=== PATIENT | female | born 1940 | race Caucasian/White ===

== ENCOUNTER 2018-08-25 20:12 | Inpatient (IN) | payer MEDICARE ==
[~2018-08-25] VITALS: Ht 162.6 cm; Wt 92.7 kg
[~2018-08-25 20:12] MED LIST: Aspirin PO; Atorvastatin Calcium PO; CLPD75T PO; LISI1TAB10 PO; METO-272 PO; SULF-222 PO
[2018-08-25] MEDS ORDERED: RT-ALBUTEROL/IPRATROPIUM 3 ML (DUONEB) VIAL INH ONE (20:30)
[2018-08-25] MEDS ORDERED: cefTRIAXone FOR IV USE 1,000 MG in WATER (STERILE) FOR INJECTION 10 ML IV ONE ×2 (20:30→22:45)
[2018-08-25 20:34] LABS: BASOPHILS % (AUTO) 0 % (0-10); EOSINOPHILS % (AUTO) 0 % (0-10); HEMATOCRIT 39 % (35-52); HEMOGLOBIN 14.2 G/DL (11.5-16.0); LYMPHOCYTES % (AUTO) 29 % (12-44); MEAN CORPUSCULAR HEMOGLOBIN 35 PG (25-34); MEAN CORPUSCULAR HGB CONC 37 G/DL (32-36); MEAN CORPUSCULAR VOLUME 95 FL (80-99); MEAN PLATELET VOLUME 9.3 FL (7.4-10.4); MONOCYTES # (AUTO) 0.8 X 10^3 (0.0-1.0); MONOCYTES % (AUTO) 11 % (0-12); NEUTROPHILS # (AUTO) 4.1 X 10^3 (1.8-7.8); NEUTROPHILS % (AUTO) 59 % (42-75); PLATELET COUNT 174 10^3/uL (130-400); RED CELL DISTRIBUTION WIDTH 14.9 % (10.0-14.5); WHITE BLOOD COUNT 6.9 10^3/uL (4.3-11.0)
[2018-08-25] MEDS ORDERED: RT-IPRATROPIUM (ATROVENT) 0.5MG/2.5ML AMP IH ONE ×2 (20:37→20:45)
[2018-08-25] MEDS ORDERED: RT-ALBUTEROL SULF 2.5 MG/3 ML PRE-MIX VIAL ONE (20:37)
[2018-08-25 20:44] LABS: PROTHROMBIN TIME PATIENT 12.9 SEC (12.2-14.7)
--- NOTE | 2018-08-25 20:45 | Diagnostic Imaging Report ---
INDICATION: Shortness of air COMPARISON: 07/10/2014 FINDINGS: Single frontal view of the chest demonstrates normal heart size and pulmonary vascularity. The lungs are well aerated and clear. No large pleural effusion or pneumothorax is seen. The visualized osseous structures show no acute abnormalities. IMPRESSION: 1. No acute cardiopulmonary process. Dictated by: Dictated on workstation # [id number]
--- NOTE | 2018-08-25 20:50 | NUR ---
ABG DRAWN BY RT NEIDA FROM LT RADIAL.
--- NOTE | 2018-08-25 20:59 | ED Respiratory ---
General Chief Complaint: Respiratory Problems Stated Complaint: SOB Nursing Triage Note: PT SENT FROM [facility] WITH REPORT OF SOB. PT TO ROOM #3 VIA ED W/C BY ED STAFF. UPON ARRIVAL INCREASED WORK OF BREATHING WITH AUDIBLE BREATH SOUNDS NOTED. DAUGHTER @ SIDE REPORTS PT DEVELOPED INTERMITTENT MOIST, PRODUCTIVE COUGH APPROX X2 WKS AGO. PT REPORTS BODY ACHES AND LETHRAGY. INITIAL O2 SAT 86% VIA RA. DENIES RECENT FEVER OR CHILLS. COURSES, WHEEZES HEARD THROUGHOUT BILAT LUNG KURTZ. Source: patient Exam Limitations: no limitations History of Present Illness Date Seen by Provider: Aug 25, 2018 Time Seen by Provider: 20:22 Initial Comments 78-year-old female who was sent over from [facility] for complaints of increasing shortness of breath for the past 2 weeks. She has a history of COPD and currently smokes 4-5 cigarettes per day. She was found to have hypoxia on arrival to the emergency room with oxygen saturations in the mid 80s. She was placed on 2 L nasal cannula and it immediately came up. She is alert and oriented on arrival to the emergency room. She has also had a productive cough with blood streaked phlegm. She has history of COPD, CVA, hypertension, and hyperlipidemia. Surgical history includes hysterectomy. Timing/Duration: getting worse, other (2 weeks) Associated Symptoms: cough, shortness of breath, wheezing Allergies and Home Medications Allergies Coded Allergies: No Known Drug Allergies (Unverified , 07/10/14) Home Medications Clopidogrel Bisulfate 75 Mg Tab, 75 MG PO DAILY Prescribed by: MERISSA SCHWARTZ on 07/12/141400 Trimethoprim/Sulfamethoxazole 1 Ea Tablet, 1 EA PO BID WITH MEALS Prescribed by: MERISSA SCHWARTZ on 07/12/141400 [Aspirin] 81 MG TABEC, 81 MG PO DAILY Prescribed by: MERISSA SCHWARTZ on 07/12/141400 [Atorvastatin Calcium] 10 MG TABLET, 10 MG PO HS Prescribed by: MERISSA SCHWARTZ on 07/12/141400 Patient Home Medication List Home Medication List Reviewed: Yes Review of Systems Review of Systems Constitutional: see HPI; No fever Respiratory: see HPI, cough, phlegm, short of breath, wheezing All Other Systems Reviewed Negative Unless Noted: Yes Past Rlbltar-Prqxqc-Hbwbey Hx Past Med/Social Hx: Reviewed Nursing Past Med/Soc Hx Patient Social History Recent Foreign Travel: No Contact w/Someone Who Travel: No Recent Infectious Disease Expo: No Immunizations Up To Date Tetanus Booster (TDap): Unknown PED Vaccines UTD: Yes Seasonal Allergies Seasonal Allergies: No Past Medical History Hysterectomy COPD Hypertension 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 4.0oz. 87.120319dk; BMI Method:Stated General Appearance: WD/WN, no apparent distress Respiratory: no respiratory distress, no accessory muscle use, decreased breath sounds, wheezing Cardiovascular: normal peripheral pulses, regular rate, rhythm, no edema, no gallop, no JVD, no murmur Gastrointestinal: normal bowel sounds, non tender, soft, no organomegaly, no pulsatile mass Extremities: no pedal edema, normal capillary refill Neurologic/Psychiatric: alert, normal mood/affect, oriented x 3 Skin: normal color, warm/dry Focused Exam Lactate Level 08/25/18 20:22: Lactic Acid Level 1.91 Lactic Acid Level Laboratory Tests Test 08/25/18 20:22 Lactic Acid Level 1.91 MMOL/L (0.50-2.00) Progress/Results/Core Measures Suspected Sepsis Recent Fever Within 48 Hours: No Infection Criteria Present: Suspected New Infection New/Unexplained Altered Menta: No Sepsis Screen: No Definite Risk SIRS Temperature:97.2 Pulse: 88 Respiratory Rate: 24 Laboratory Tests 08/25/18 20:22: White Blood Count 6.9 Blood Pressure 154 /77 Mean: 102 08/25/18 20:22: Lactic Acid Level 1.91 Laboratory Tests 08/25/18 20:22: Creatinine 1.38H, INR Comment 1.0, Platelet Count 174, Total Bilirubin 0.8 Results/Orders Lab Results Laboratory Tests Test 08/25/18 20:22 08/25/18 20:50 08/25/18 22:20 Range/Units White Blood Count 6.9 4.3-11.0 10^3/uL Red Blood Count 4.09 L 4.35-5.85 10^6/uL Hemoglobin 14.2 11.5-16.0 G/DL Hematocrit 39 35-52 % Mean Corpuscular Volume 95 80-99 FL Mean Corpuscular Hemoglobin 35 H 25-34 PG Mean Corpuscular Hemoglobin Concent 37 H 32-36 G/DL Red Cell Distribution Width 14.9 H 10.0-14.5 % Platelet Count 174 130-400 10^3/uL Mean Platelet Volume 9.3 7.4-10.4 FL Neutrophils (%) (Auto) 59 42-75 % Lymphocytes (%) (Auto) 29 12-44 % Monocytes (%) (Auto) 11 0-12 % Eosinophils (%) (Auto) 0 0-10 % Basophils (%) (Auto) 0 0-10 % Neutrophils # (Auto) 4.1 1.8-7.8 X 10^3 Lymphocytes # (Auto) 2.0 1.0-4.0 X 10^3 Monocytes # (Auto) 0.8 0.0-1.0 X 10^3 Eosinophils # (Auto) 0.0 0.0-0.3 10^3/uL Basophils # (Auto) 0.0 0.0-0.1 10^3/uL Prothrombin Time 12.9 12.2-14.7 SEC INR Comment 1.0 0.8-1.4 Activated Partial Thromboplast Time 32 24-35 SEC Sodium Level 119 *L 135-145 MMOL/L Potassium Level 4.0 3.6-5.0 MMOL/L Chloride Level 85 L 98-107 MMOL/L Carbon Dioxide Level 20 L 21-32 MMOL/L Anion Gap 14 5-14 MMOL/L Blood Urea Nitrogen 18 7-18 MG/DL Creatinine 1.38 H 0.60-1.30 MG/DL Estimat Glomerular Filtration Rate 37 BUN/Creatinine Ratio 13 Glucose Level 124 H 70-105 MG/DL Lactic Acid Level 1.91 0.50-2.00 MMOL/L Calcium Level 9.0 8.5-10.1 MG/DL Corrected Calcium 9.1 8.5-10.1 MG/DL Magnesium Level 1.9 1.8-2.4 MG/DL Total Bilirubin 0.8 0.1-1.0 MG/DL Aspartate Amino Transf (AST/SGOT) 25 5-34 U/L Alanine Aminotransferase (ALT/SGPT) 14 0-55 U/L Alkaline Phosphatase 100 40-136 U/L Troponin I < 0.028 <0.028 NG/ML B-Type Natriuretic Peptide 79.5 <100.0 PG/ML Total Protein 7.3 6.4-8.2 GM/DL Albumin 3.9 3.2-4.5 GM/DL Blood Gas Puncture Site L RAD Blood Gas Patient Temperature 97.2 Arterial Blood pH 7.43 7.37-7.43 Arterial Blood Partial Pressure CO2 36 35-45 MMHG Arterial Blood Partial Pressure O2 64 L 79-93 MMHG Arterial Blood HCO3 24 23-27 MMOL/L Arterial Blood Total CO2 24.8 21.0-31.0 MMOL/L Arterial Blood Oxygen Saturation 94 94-100 % Arterial Blood Base Excess -0.2 -2.5-2.5 MMOL/L Osman Test YES-POS Blood Gas Ventilator Setting NO Blood Gas Inspired Oxygen 2L Micro Results Microbiology 08/25/18 Influenza Types A,B Antigen (CASIMIRO) - Final, Complete My Orders Orders - ANNA MAJOR Albuterol Pre-Mix Nebs (Rt) (Proventil (08/25/18 21:00) Ipratropium 0.02% Neb Solution (Atrovent (08/25/18 20:45) Methylprednisolone Sod Succ (Solu-Medrol (08/25/18 21:30) Medications Given in ED Current Medications Medications Dose Ordered Sig/Kaylee Route Start Time Stop Time Status Last Admin Dose Admin Albuterol/ Ipratropium 3 ml ONCE ONCE INH 08/25/18 20:30 08/25/18 20:31 DC 08/25/18 20:34 3 ML Ipratropium [place] 0.5 mg ONCE ONCE IH 08/25/18 20:45 08/25/18 20:46 DC 08/25/18 20:43 0.5 MG Methylprednisolone Sodium Succinate 125 mg ONCE ONCE IVP 08/25/18 21:30 08/25/18 21:31 DC 08/25/18 21:26 125 MG Vital Signs/I&O 08/25/18 08/25/18 08/25/18 08/25/18 20:20 20:20 20:34 20:43 Temp 97.2 Pulse 88 Resp 24 B/P (MAP) 154/77 (102) Pulse Ox 97 97 93 96 O2 Delivery Nasal Cannula Nasal Cannula Nasal Cannula Nasal Cannula O2 Flow Rate 2.00 2.00 2.00 2.00 Capillary Refill : Less Than 3 Seconds Blood Pressure Mean: 102 Progress Note : Time: 21:00 Progress Note I have seen and evaluated the patient. I have discussed the case with Dr. Ceja and Dr. Torrez and they agreed to admit the patient to their services. Dr. Torrez recommends Solu-Medrol 125 one time dose and 40 mg every [address] Ceja recommends stopping the patient's hydrochlorothiazide and restricting fluids to 800 cc per day. The patient has improved after hour-long breathing treatment. She will be admitted to the stepdown unit. The patient and family agrees with plan of care. Diagnostic Imaging Diagonstic Imaging: Xray Plain Films/CT/US/NM/MRI: chest Comments [facility]. [place], [place] NAME: TABATHA MARSHALL REC#: [id number] PT STATUS: REG ER : 1940 PHYSICIAN: KYARA MEDEL DO ADMIT DATE: 08/25/18/ER Draft Date of Exam:08/25/18 CHEST 1 VIEW, AP/PA ONLY INDICATION: Shortness of air COMPARISON: 07/10/2014 FINDINGS: Single frontal view of the chest demonstrates normal heart size and pulmonary vascularity. The lungs are well aerated and clear. No large pleural effusion or pneumothorax is seen. The visualized osseous structures show no acute abnormalities. IMPRESSION: 1. No acute cardiopulmonary process. Dictated on workstation # [id number] Dict: 08/25/182042 Trans: 08/25/182044 HAO [id number] Interpreted by: NATIVIDAD MONIQUE MD Electronically signed by: Reviewed: Reviewed by Me Departure Communication (Admissions) Time/Spoke to Admitting Phy: 21:00 Dr. Ceja Time/Spoke to Consulting Phy: 21:05 Dr. Torrez Impression Primary Impression: COPD exacerbation Additional Impression: Hyponatremia Disposition: ADMITTED INPATIENT Condition: Stable/Unchanged Admissions Decision to Admit Reason: Admit from ER (General) Decision to Admit/Date: Aug 25, 2018 Time/Decision to Admit Time: 21:30 Departure-Patient Inst. Referrals: KM PHILLIPS MD (PCP/Family) Primary Care Physician ANNA MAJOR Aug 25, 2018 20:59
[2018-08-25 21:00] LABS: ALANINE AMINOTRANSFERASE 14 U/L (0-55); ALBUMIN 3.9 GM/DL (3.2-4.5); ALKALINE PHOSPHATASE 100 U/L (40-136); BILIRUBIN,TOTAL 0.8 MG/DL (0.1-1.0); BUN/CREATININE RATIO 13; CARBON DIOXIDE 20 MMOL/L (21-32); CHLORIDE 85 MMOL/L (98-107); CREATININE SERUM 1.38 MG/DL (0.60-1.30); GFR ESTIMATED 37; GLUCOSE 124 MG/DL (70-105); MAGNESIUM 1.9 MG/DL (1.8-2.4); TOTAL PROTEIN 7.3 GM/DL (6.4-8.2)
[2018-08-25] MEDS ORDERED: RT-ALBUTEROL SULF 2.5 MG/3 ML PRE-MIX VIAL INH SCH (21:00)
[2018-08-25 21:02] LABS: ABG BASE EXCESS -0.2 MMOL/L (-2.5-2.5); ABG OXYGEN SATURATION 94 % (94-100); ABG PCO2 36 MMHG (35-45); ABG PH 7.43 (7.37-7.43); ABG PO2 64 MMHG (79-93); ABG TCO2 24.8 MMOL/L (21.0-31.0); ALLENS TEST YES-POS; INSPIRED O2 2L; PATIENT TEMP 97.2; VENTILATOR NO
[2018-08-25 21:02] LABS: SODIUM 119 MMOL/L (135-145)
[2018-08-25] MEDS ORDERED: methylPREDNISolone 125 MG (Solu-MEDROL) VIAL IVP ONE (21:30)
[2018-08-25 22:28] LABS: BILIRUBIN,URINE NEGATIVE (NEGATIVE); CLARITY,URINE SLIGHTLY CLOUDY; COLOR,URINE YELLOW; GLUCOSE, URINE (UA) NEGATIVE (NEGATIVE); KETONES,URINE NEGATIVE (NEGATIVE); LEUKOCYTE ESTERASE ,URINE 3+ (NEGATIVE); NITRITE,URINE NEGATIVE (NEGATIVE); PH,URINE 6 (5-9); PROTEIN,URINE 1+ (NEGATIVE); UROBILINOGEN,URINE NORMAL (NORMAL)
--- OUTSIDE RECORDS SUMMARY | 2018-08-25 22:31 | XMS REPORT ---
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 Active 6669541389615 Problem Nicotine dependence, uncomplicated, unspecified nicotine product type F17.200 Active 919712585 Problem Cigarette nicotine dependence without complication F17.210 Active 560074895 Problem Essential hypertension I10 Active 89401317 Problem Chronic obstructive pulmonary disease, unspecified COPD type J44.9 Active 35293547 Problem Transient cerebral ischemia, unspecified type G45.9 Active 502314187 Problem Hypercholesterolemia E78.00 Active 31153253 ALLERGIES No Information ENCOUNTERS Encounter Location Date Diagnosis [facility] [id number] [place] [address] May, Coronary artery disease involving douglas coronary artery of douglas heart without angina pectoris I25.10 and Transient cerebral ischemia, unspecified type G45.9 [facility] [id number] [address] May, Coronary artery disease involving douglas coronary artery of douglas heart without angina pectoris I25.10 and Transient cerebral ischemia, unspecified type G45.9 [facility] [id number] [address] Apr, Chronic obstructive pulmonary disease, unspecified COPD type J44.9 ; Hypercholesterolemia E78.00 ; Essential hypertension I10 ; Encounter for immunization Z23 and Coronary artery disease involving douglas coronary artery of douglas heart without angina pectoris I25.10 [facility] [id number] [address] Mar, Essential hypertension I10 and Hypercholesterolemia E78.00 [address] [address] October, [address] [address] October, [address] [address] October, Cigarette nicotine dependence without complication F17.210 and Nicotine dependence, uncomplicated, unspecified nicotine product type F17.200 [address] [address] Sep, Medicare annual wellness visit, initial Z00.00 [address] [place] [address] 02 Sep, 2017 Medicare annual wellness visit, initial Z00.00 ; Essential hypertension I10 ; Chronic obstructive pulmonary disease, unspecified COPD type J44.9 ; Hypercholesterolemia E78.00 and Coronary artery disease involving douglas coronary artery of douglas heart without angina pectoris I25.10 [address] [address] [address] May, Chronic obstructive pulmonary disease, unspecified COPD type J44.9 and Encounter for immunization Z23 [address] [address] 21 Apr, 2017 Chronic obstructive pulmonary disease, unspecified COPD type J44.9 [address] [address] [address] [address] 16 Apr, 2017 Chronic obstructive pulmonary disease, unspecified COPD type J44.9 ; Coronary artery disease involving douglas coronary artery of douglas heart without angina pectoris I25.10 and Encounter for immunization Z23 [address] [address] [place] [address] 14 Apr, 2017 Chronic obstructive pulmonary disease, unspecified COPD type J44.9 ; Encounter for immunization Z23 and Coronary artery disease involving douglas coronary artery of douglas heart without angina pectoris I25.10 [place] [address] [address] 15 Jan, 2017 Coronary artery disease involving douglas coronary artery of douglas heart without angina pectoris I25.10 ; Hypercholesterolemia E78.00 ; Chronic obstructive pulmonary disease, unspecified COPD type J44.9 ; Transient cerebral ischemia, unspecified type G45.9 and Essential hypertension I10 [facility] [id number] [place] [address] 18 Sep, 2015 Arthritis of left knee M19.90 [facility] [id number] [place] [address] Apr, [facility] [address] [address] Feb, Routine adult health maintenance V70.0 ; Essential hypertension, benign 401.1 and Allergic rhinitis due to allergen 477.9 [facility] [id number] [place] [address] Feb, [facility] [id number] [place] [address] Sep, [facility] [id number] [place] [address] Sep, [facility] [id number] [address] Aug, [facility] [id number] [place] [address] Aug, [facility] [id number] [place] [address] Jul, [facility] [id number] [place] [address]- [address] Jul, [facility] [id number] [place] [address] Jul, [facility] [id number] [place] [address] Jul, [facility] [id number] [address] Jun, [facility] [id number] [address] Jun, [facility] [id number] [address] Dec, [facility] [address] [address] Dec, [facility] [id number] [address] Nov, [facility] [address] [address] Nov, [facility] [address] [address] Nov, [facility] [id number] [address] Nov, IMMUNIZATIONS No Known Immunizations SOCIAL HISTORY Never Assessed REASON FOR VISIT medication refill PLAN OF CARE VITAL SIGNS MEDICATIONS Medication Instructions Dosage Frequency Start Date End Date Duration Status Metoprolol Succinate 50 mg oral Once a day at bedtime take 1 tab 30 day(s) Active Plavix 75 mg Orally Once a day 1 tablet 24h 30 days Active RESULTS No Results PROCEDURES No Known procedures INSTRUCTIONS MEDICATIONS ADMINISTERED No Known Medications MEDICAL (GENERAL) HISTORY Type Description Date Medical History hypertension Medical History hyperlipidemia Medical History macular degeneration left eye--no vision Medical History mild CVA (06/2014) Medical History stroke 2013 Surgical History hysterectomy 1993 Surgical History section x2 1967 & 1970 Surgical History cataract-lens implants (R) 2011 Hospitalization History Mild CVA 06/2014
--- OUTSIDE RECORDS SUMMARY | 2018-08-25 22:31 | XMS REPORT ---
Author Author KM PHILLIPS Organization [facility] Address [address] [place] [address] Care Team Providers Care Applications Consultant Name Role Phone KM PHILLIPS Unavailable PROBLEMS Type Condition ICD9-CM Code CNL50-FS Code Onset Dates Condition Status SNOMED Code Problem Coronary artery disease involving [place] coronary artery of [place] heart without angina pectoris I25.10 Active 2916701537142 Problem Nicotine dependence, uncomplicated, unspecified nicotine product type F17.200 Active 827030968 Problem Cigarette nicotine dependence without complication F17.210 Active 987536381 Problem Essential hypertension I10 Active 84696514 Problem Chronic obstructive pulmonary disease, unspecified COPD type J44.9 Active 31838579 Problem Transient cerebral ischemia, unspecified type G45.9 Active 703703147 Problem Hypercholesterolemia E78.00 Active 27576906 ALLERGIES No Information ENCOUNTERS Encounter Location Date Diagnosis [facility] [id number] [place] [address] May, Coronary artery disease involving [place] coronary artery of [place] heart without angina pectoris I25.10 and Transient cerebral ischemia, unspecified type G45.9 [facility] [id number] [address] May, Coronary artery disease involving [place] coronary artery of [place] heart without angina pectoris I25.10 and Transient cerebral ischemia, unspecified type G45.9 [facility] [id number] [address] Apr, Chronic obstructive pulmonary disease, unspecified COPD type J44.9 ; Hypercholesterolemia E78.00 ; Essential hypertension I10 ; Encounter for immunization Z23 and Coronary artery disease involving [place] coronary artery of [place] heart without angina pectoris I25.10 [facility] [id number] [address] Mar, Essential hypertension I10 and Hypercholesterolemia E78.00 [place] [address] [address] October, [place] [address], [place] [address] October, [address], [place] [address] October, Cigarette nicotine dependence without complication F17.210 and Nicotine dependence, uncomplicated, unspecified nicotine product type F17.200 [place] [address], [place] [address] Sep, Medicare annual wellness visit, initial Z00.00 [place] [place] [address] [place] [address] 02 Sep, 2017 Medicare annual wellness visit, initial Z00.00 ; Essential hypertension I10 ; Chronic obstructive pulmonary disease, unspecified COPD type J44.9 ; Hypercholesterolemia E78.00 and Coronary artery disease involving [place] coronary artery of [place] heart without angina pectoris I25.10 [place] [address] [address] May, Chronic obstructive pulmonary disease, unspecified COPD type J44.9 and Encounter for immunization Z23 [place] [address] [address], [place] [address] 21 Apr, 2017 Chronic obstructive pulmonary disease, unspecified COPD type J44.9 [place] [address], [place] [address] 16 Apr, 2017 Chronic obstructive pulmonary disease, unspecified COPD type J44.9 ; Coronary artery disease involving [place] coronary artery of [place] heart without angina pectoris I25.10 and Encounter for immunization Z23 [place] [address] [place] [address] 14 Apr, 2017 Chronic obstructive pulmonary disease, unspecified COPD type J44.9 ; Encounter for immunization Z23 and Coronary artery disease involving [place] coronary artery of [place] heart without angina pectoris I25.10 [place] [address] [address] 15 Jan, 2017 Coronary artery disease involving [place] coronary artery of [place] heart without angina pectoris I25.10 ; Hypercholesterolemia E78.00 ; Chronic obstructive pulmonary disease, unspecified COPD type J44.9 ; Transient cerebral ischemia, unspecified type G45.9 and Essential hypertension I10 [facility] [id number] [place] [address] 18 Sep, 2015 Arthritis of left knee M19.90 [facility] [id number] [place] [address] Apr, [facility] [address] [address] Feb, Routine adult health maintenance V70.0 ; Essential hypertension, benign 401.1 and Allergic rhinitis due to allergen 477.9 [facility] [id number] [place] [address] Feb, [facility] [id number] [place] [address]- [address] Sep, [facility] [id number] [place] [address]- [address] Sep, [facility] [address] [address] Aug, [facility] [id number] [place] [address] Aug, [facility] [id number] [place] [address]- [address] Jul, [facility] [id number] [place] [address]- [address] Jul, [facility] [id number] [place] [address]- [address] Jul, [facility] [id number] [place] [address]- [address] Jul, [facility] [id number] [address] Jun, [facility] [id number], [place] [address] Jun, [facility] [id number] [address] Dec, [facility] [address], [place] [address] Dec, [facility] [id number] [address] Nov, [facility] [address], [place] [address] Nov, [facility] [address], [place] [address] Nov, [facility] [id number], [place] [address] Nov, IMMUNIZATIONS No Known Immunizations SOCIAL HISTORY Never Assessed REASON FOR VISIT medication refill PLAN OF CARE VITAL SIGNS MEDICATIONS Medication Instructions Dosage Frequency Start Date End Date Duration Status Metoprolol Succinate 50 mg oral Once a day at bedtime take 1 tab Active Plavix 75 mg 1 tablet by Oral route 1 time per day Active RESULTS No Results PROCEDURES No Known [...]
--- OUTSIDE RECORDS SUMMARY | 2018-08-25 22:32 | XMS REPORT ---
Author Author KM PHILLIPS Organization [facility] Address [address] [place] [address] Care Team Providers Care Outreach Team Member Name Role Phone KM PHILLIPS Unavailable PROBLEMS Type Condition ICD9-CM Code MCE87-UE Code Onset Dates Condition Status SNOMED Code Problem Coronary artery disease involving [place] coronary artery of [place] heart without angina pectoris I25.10 Active 9242833894845 Problem Nicotine dependence, uncomplicated, unspecified nicotine product type F17.200 Active 915725658 Problem Cigarette nicotine dependence without complication F17.210 Active 973588739 Problem Essential hypertension I10 Active 99926679 Problem Chronic obstructive pulmonary disease, unspecified COPD type J44.9 Active 62724003 Problem Transient cerebral ischemia, unspecified type G45.9 Active 050843130 Problem Hypercholesterolemia E78.00 Active 48368546 ALLERGIES No Information ENCOUNTERS Encounter Location Date Diagnosis [place] [id number] [place] [address] 63762- 6821 Apr, [place] [id number] [place] [address] 23325- 6918 Mar, Essential hypertension I10 and Hypercholesterolemia E78.00 [place] [id number] [place] [address] 34254- 9144 October, [facility] [id number] [place] [address] 28445- 8476 October, [facility] [id number] [place] [address] 62028- 6249 October, Cigarette nicotine dependence without complication F17.210 and Nicotine dependence, uncomplicated, unspecified nicotine product type F17.200 [facility] [id number] [place] [address] 99303- 6092 Sep, Medicare annual wellness visit, initial Z00.00 [place] [address] [address] 120[address] Sep, Medicare annual wellness visit, initial Z00.00 ; Essential hypertension I10 ; Chronic obstructive pulmonary disease, unspecified COPD type J44.9 ; Hypercholesterolemia E78.00 and Coronary artery disease involving [place] coronary artery of [place] heart without angina pectoris I25.10 [place] [address] [place] [address] 94923- 5506 May, Chronic obstructive pulmonary disease, unspecified COPD type J44.9 and Encounter for immunization Z23 [place] [id number] [place] [address] 23710- 8605 Apr, Chronic obstructive pulmonary disease, unspecified COPD type J44.9 [place] [id number] [place] [address] 59045- 2592 16 Apr, 2017 Chronic obstructive pulmonary disease, unspecified COPD type J44.9 ; Coronary artery disease involving [place] coronary artery of [place] heart without angina pectoris I25.10 and Encounter for immunization Z23 [place] [id number] [place] [address] 96253- 9813 14 Apr, 2017 Chronic obstructive pulmonary disease, unspecified COPD type J44.9 ; Encounter for immunization Z23 and Coronary artery disease involving [place] coronary artery of [place] heart without angina pectoris I25.10 [place] [address] [address]- 7359 15 Jan, 2017 Coronary artery disease involving [place] coronary artery of [place] heart without angina pectoris I25.10 ; Hypercholesterolemia E78.00 ; Chronic obstructive pulmonary disease, unspecified COPD type J44.9 ; Transient cerebral ischemia, unspecified type G45.9 and Essential hypertension I10 [place] [id number] [place] [address] 80802- 7286 Sep, Arthritis of left knee M19.90 [place] [id number] [place] [address] 43318- 5082 Apr, [place] [id number] [place] [address] 81220- 6464 Feb, Routine adult health maintenance V70.0 ; Essential hypertension, benign 401.1 and Allergic rhinitis due to allergen 477.9 [facility] [id number] [address] 8002 Feb, [facility] [address] [address]- 9890 Sep, [facility] [id number] [place] [address] 57109- 5998 Sep, [facility] [id number] [address]- 7399 Aug, [facility] [id number] [place] [address] 41382- 9839 Aug, [facility] [id number] [place] [address]- 1854 Jul, [facility] [id number] [place] [address] 79423- 5063 Jul, [facility] [address] [place] [address]- 1455 Jul, [facility] [address] [address]- 7737 Jul, [facility] [address] [address]- 7115 Jun, [facility] [address] [address]- 7466 Jun, [facility] [address] 18[address] Dec, [facility] [address] [address]- 7342 Dec, [facility] [id number] [address]- 6931 Nov, [facility] [address] [place] [address]- 9195 Nov, [facility] [address] [facility] [id number] [place] [address]- 6211 Nov, [facility] [address] [facility] [id number] [place] [address]- 9469 Nov, IMMUNIZATIONS No Known Immunizations SOCIAL HISTORY Never Assessed REASON FOR VISIT Medication refill PLAN OF CARE VITAL SIGNS MEDICATIONS Medication Instructions Dosage Frequency Start Date End Date Duration Status atorvastatin 10 mg by oral route Once a day 1 tablet 24h 30 days Active Lisinopril-Hydrochlorothiazide 20-25 MG Orally Once a day in the morning 1 tablet 30 days Active RESULTS No Results PROCEDURES [...]
--- OUTSIDE RECORDS SUMMARY | 2018-08-25 22:32 | XMS REPORT ---
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 Active Problem Allergic rhinitis due to allergen 477.9 Active Problem Occlusion and stenosis of carotid artery without mention of cerebral infarction 433.10 Active Problem Unspecified transient cerebral ischemia 435.9 Active Problem Unspecified disorder of kidney and ureter 593.9 Active Problem Unspecified cerebrovascular disease 437.9 Active Problem Unspecified disorder of skin and subcutaneous tissue 709.9 Active Problem Special screening for osteoporosis V82.81 Active Problem Unspecified breast screening V76.10 Active Problem Essential hypertension, benign 401.1 Active Medications No Known Medications Results No Known Results Summary Purpose eClinicalWorks Submission
--- OUTSIDE RECORDS SUMMARY | 2018-08-25 22:32 | XMS REPORT ---
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 Name Role Phone KM PHILLIPS Unavailable PROBLEMS Type Condition ICD9-CM Code XCV24-JO Code Onset Dates Condition Status SNOMED Code Problem Coronary artery disease involving [place] coronary artery of [place] heart without angina pectoris I25.10 Active 7156724126715 Problem Nicotine dependence, uncomplicated, unspecified nicotine product type F17.200 Active 346619474 Problem Cigarette nicotine dependence without complication F17.210 Active 981351765 Problem Essential hypertension I10 Active 30968233 Problem Chronic obstructive pulmonary disease, unspecified COPD type J44.9 Active 38370628 Problem Transient cerebral ischemia, unspecified type G45.9 Active 251646487 Problem Hypercholesterolemia E78.00 Active 79045025 ALLERGIES No Information ENCOUNTERS Encounter Location Date Diagnosis [place] [address] [place] [address] 52456- 6603 October, [place] [id number] [place] [address] 02940- 1237 October, [place] [address] [place] [address] 52754- 2694 07 Oct, 2017 Cigarette nicotine dependence without complication F17.210 and Nicotine dependence, uncomplicated, unspecified nicotine product type F17.200 [place] [address] [id number] [address]- 5108 06 Sep, 2017 Medicare annual wellness visit, initial Z00.00 [place] [address] [place] [address] 98667- 6280 02 Sep, 2017 Medicare annual wellness visit, initial Z00.00 ; Essential hypertension I10 ; Chronic obstructive pulmonary disease, unspecified COPD type J44.9 ; Hypercholesterolemia E78.00 and Coronary artery disease involving [place] coronary artery of [place] heart without angina pectoris I25.10 [place] [address] [place] [address] 62137- 4936 May, Chronic obstructive pulmonary disease, unspecified COPD type J44.9 and Encounter for immunization Z23 [place] [address] [place] [address] 69373- 4507 Apr, Chronic obstructive pulmonary disease, unspecified COPD type J44.9 [place] [id number] [place] [address] 84145- 5000 16 Apr, 2017 Chronic obstructive pulmonary disease, unspecified COPD type J44.9 ; Coronary artery disease involving [place] coronary artery of [place] heart without angina pectoris I25.10 and Encounter for immunization Z23 [place] [id number] [place] [address] 29743- 6882 14 Apr, 2017 Chronic obstructive pulmonary disease, unspecified COPD type J44.9 ; Encounter for immunization Z23 and Coronary artery disease involving [place] coronary artery of [place] heart without angina pectoris I25.10 [place] [id number] [place] [address] 29557- 5184 15 Jan, 2017 Coronary artery disease involving [place] coronary artery of ch[place] heart without angina pectoris I25.10 ; Hypercholesterolemia E78.00 ; Chronic obstructive pulmonary disease, unspecified COPD type J44.9 ; Transient cerebral ischemia, unspecified type G45.9 and Essential hypertension I10 [place] [id number] [place] [address] 47561- 6746 Sep, Arthritis of left knee M19.90 [place] [id number] [place] [address] 15906- 7164 Apr, [place] [id number] [place] [address] 08238- 6405 Feb, Routine adult health maintenance V70.0 ; Essential hypertension, benign 401.1 and Allergic rhinitis due to allergen 477.9 [place] [id number] [place] [address] 28654- 1163 Feb, [place] [address] [id number] [place] [address]- 1236 14 Sep, 2014 [facility] [place] [facility] [address] [id number] [place] [address]- 4842 Sep, [facility] [place] [facility] [address] [id number] [place] [address]- 7050 Aug, [facility] [place] [facility] [address] [id number] [place] [address]- 5607 Aug, [facility] [place] [facility] [address] [id number] [place] [address]- 3609 Jul, [facility] [place] [facility] [address] [id number] [place] [address]- 4663 Jul, [facility] [place] [facility] [address] [id number] [place] [address]- 6906 Jul, [facility] [place] [facility] [address] [id number] [place] [address]- 7858 Jul, [facility] [place] [facility] [address] [id number] [place] [address]- 5469 Jun, [facility] [place] [facility] [address] [id number] [place] [address]- 2592 Jun, [facility] [place] [facility] [address] [id number] [place] [address]- 2249 Dec, [facility] [place] [facility] [address] [id number] [place] [address]- 2062 Dec, [facility] [place] [facility] [address] [id number] [place] [address]- 3809 Nov, [facility] [place] [facility] [address] [id number] [place] [address]- 0849 Nov, [facility] [place] [facility] [address] [id number] [place] [address]- 6705 Nov, [facility] [place] [facility] [address] [id number] [address]- 0646 Nov, IMMUNIZATIONS No Known Immunizations SOCIAL HISTORY Never Assessed REASON FOR VISIT Lab (walk-in) PLAN OF CARE VITAL SIGNS MEDICATIONS Unknown Medications RESULTS Name Result Date Reference Range HEMOCCULT (IN HOUSE) 2017-10-02 RESULTS Negative Control + Lot # [id number] Exp date 09/2018 HEMOCCULT (IN HOUSE)-Additional 2017-10-02 RESULTS Negative Control + Lot # [id number] Exp Date 09/2018 PROCEDURES Procedure Date Ordered Result Body Site TEST FOR BLOOD, FECES October 02, 2017 INSTRUCTIONS MEDICATIONS ADMINISTERED No Known Medications MEDICAL (GENERAL) HISTORY Type Description Date Medical History hypertension Medical History hyperlipidemia Medical History macular degeneration left eye--no vision Medical History mild CVA (06/2014) Medical History stroke 2013 Surgical History hysterectomy 1993 Surgical History section x2 1967 & 1970 Surgical History cataract-lens implants (R) 2011 Hospitalization History Mild CVA 06/2014
--- OUTSIDE RECORDS SUMMARY | 2018-08-25 22:32 | XMS REPORT ---
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 [place] heart without angina pectoris I25.10 Active 7005421898011 Problem Nicotine dependence, uncomplicated, unspecified nicotine product type F17.200 Active 527231203 Problem Cigarette nicotine dependence without complication F17.210 Active 774684111 Problem Essential hypertension I10 Active 91323629 Problem Chronic obstructive pulmonary disease, unspecified COPD type J44.9 Active 46937740 Problem Transient cerebral ischemia, unspecified type G45.9 Active 744471547 Problem Hypercholesterolemia E78.00 Active 56466823 ALLERGIES No Known Allergies ENCOUNTERS Encounter Location Date Diagnosis [place] [address] [place] [address] 79901- 8442 Apr, Chronic obstructive pulmonary disease, unspecified COPD type J44.9 ; Hypercholesterolemia E78.00 ; Essential hypertension I10 ; Encounter for immunization Z23 and Coronary artery disease involving [place] coronary artery of [place] heart without angina pectoris I25.10 [place] [id number] [address]- 8094 Mar, Essential hypertension I10 and Hypercholesterolemia E78.00 [place] [address], [place] [address]- 9002 October, [place] [id number] [place] [address] 26873- 0642 October, [place] [id number] [place] [address] 80799- 7423 October, Cigarette nicotine dependence without complication F17.210 and Nicotine dependence, uncomplicated, unspecified nicotine product type F17.200 [place] [address], [place] [address]- 7822 Sep, Medicare annual wellness visit, initial Z00.00 [place] [address], [place] [address]- 7432 02 Sep, 2017 Medicare annual wellness visit, initial Z00.00 ; Essential hypertension I10 ; Chronic obstructive pulmonary disease, unspecified COPD type J44.9 ; Hypercholesterolemia E78.00 and Coronary artery disease involving [place] coronary artery of [place] heart without angina pectoris I25.10 [place] [address], [place] [address]- 5561 May, Chronic obstructive pulmonary disease, unspecified COPD type J44.9 and Encounter for immunization Z23 [place] [address], [place] [address]- 2645 Apr, Chronic obstructive pulmonary disease, unspecified COPD type J44.9 [place] [id number], [place] [address]- 2631 16 Apr, 2017 Chronic obstructive pulmonary disease, unspecified COPD type J44.9 ; Coronary artery disease involving [place] coronary artery of al[place] heart without angina pectoris I25.10 and Encounter for immunization Z23 [place] [address], [place] [address]- 5933 14 Apr, 2017 Chronic obstructive pulmonary disease, unspecified COPD type J44.9 ; Encounter for immunization Z23 and Coronary artery disease involving [place] coronary artery of alatna heart without angina pectoris I25.10 [place] [address], [place] [address]- 3429 15 Jan, 2017 Coronary artery disease involving [place] coronary artery of alatna heart without angina pectoris I25.10 ; Hypercholesterolemia E78.00 ; Chronic obstructive pulmonary disease, unspecified COPD type J44.9 ; Transient cerebral ischemia, unspecified type G45.9 and Essential hypertension I10 [place] [address], [place] [address]- 7270 Sep, Arthritis of left knee M19.90 [place] [address], [place] [address]- 7946 Apr, [facility] [address] [place] [address], [place]- 8122 Feb, Routine adult health maintenance V70.0 ; Essential hypertension, benign 401.1 and Allergic rhinitis due to allergen 477.9 [facility] [id number] [place] [address], [place] [address]- 6106 Feb, [facility] [address] [id number] [address]- 8854 Sep, [facility] [id number] [place] [address], [place] [address]- 5796 Sep, [facility] [address] [id number] [address]- 9120 Aug, [facility] [id number] [place] [address], [place] [address]- 3180 Aug, [facility] [address] [address]- 2308 Jul, [facility] [address] [address]- 9883 Jul, [facility] [address] [address] 5087 Jul, [facility] [address] [address]- 5201 Jul, [facility] [address] [address]- 0183 Jun, [facility] [address] [address]- 4408 Jun, [facility] [address] [address]- 7286 Dec, [facility] [address] [address]- 3911 Dec, [facility] [address] [facility] [id number] [address]- 9965 Nov, [facility] [address] [facility] [id number] [address]- 8541 Nov, [facility] [address] [facility] [id number]- 1006 Nov, [facility] [address] [facility] [id number][place] 2893 Nov, IMMUNIZATIONS Vaccine Route Administration Date Status FLULAVAL QUAD 0.5ML (6 MO & UP) 2017 IM Intramuscular May 04, 2018 Administered TDAP (BOOSTRIX) IM Intramuscular May 04, 2018 Administered SOCIAL HISTORY Never Assessed REASON FOR VISIT COPD check up Jack GEORGE , wants flu shot and was advised TDAP is due and PT said she would get both Jack george PLAN OF CARE Activity Details Follow Up 1 Year Reason: VITAL SIGNS Height 68 in 2018-05-04 Weight 201 lbs 2018-05-04 Temperature 97.7 degrees Fahrenheit 2018-05-04 Heart Rate 71 bpm 2018-05-04 Respiratory Rate 20 2018-05-04 Oximetry on room air:96 % 2018-05-04 BMI 30.56 kg/m2 2018-05-04 Blood pressure systolic 130 mmHg 2018-05-04 Blood pressure diastolic 68 mmHg 2018-05-04 MEDICATIONS Medication Instructions Dosage Frequency Start Date End Date Duration Status Plavix 75 mg 1 tablet by Oral route 1 time per day Active Metoprolol Succinate 50 mg oral Once a day at bedtime take 1 tab Active Flonase 50 MCG/ACT Nasally Once a day 1 spray in each nostril 24h Not-Taking Lisinopril-Hydrochlorothiazide 20-25 MG Orally Once a day in the morning 1 tablet 30 days Active atorvastatin 10 mg by oral route Once a day 1 tablet 24h 30 days Active Aspirin 81 MG Orally Once a day 1 tablet 24h Active Amlodipine Besylate 2.5 MG Orally Once a day 1 tablet 24h Active Anoro Ellipta 62.5-25 MCG/INH Inhalation Once a day 1 puff 24h Active ProAir HFA 108 (90 Base) MCG/ACT Inhalation every 4 hrs 2 puffs as needed 4h Active RESULTS No Results PROCEDURES Procedure Date Ordered Result Body Site [facility] VISIT ESTABLISHED PATIENT May 04, 2018 IMMUNIZATION ADMIN, EACH ADD (please include units) May 04, 2018 ADMN FLU VAC NO FEE SCHED SAME DAY May 04, 2018 FLULAVAL QUAD 0.5ML (6 MO & UP) 2018 May 04, 2018 SINGLE IMMUNIZATION ADMIN May 04, 2018 TDAP (BOOSTRIX) May 04, 2018 INSTRUCTIONS MEDICATIONS ADMINISTERED No Known Medications MEDICAL (GENERAL) HISTORY Type Description Date Medical History hypertension Medical History hyperlipidemia Medical History macular degeneration left eye--no vision Medical History mild CVA (06/2014) Medical History stroke 2013 Surgical History hysterectomy 1993 Surgical History section x2 1967 & 1970 Surgical History cataract-lens implants (R) 2011 Hospitalization History Mild CVA 06/2014
--- OUTSIDE RECORDS SUMMARY | 2018-08-25 22:32 | XMS REPORT ---
Author Author KM PHILLIPS Organization [facility] Address [address] [place] [address] Care Team Providers Care Environmental Technology Professor Name Role Phone KM PHILLIPS Unavailable PROBLEMS Type Condition ICD9-CM Code HOA39-IV Code Onset Dates Condition Status SNOMED Code Problem Coronary artery disease involving samish coronary artery of samish heart without angina pectoris I25.10 Active 2829814094690 Problem Nicotine dependence, uncomplicated, unspecified nicotine product type F17.200 Active 177859019 Problem Cigarette nicotine dependence without complication F17.210 Active 878171306 Problem Essential hypertension I10 Active 98230623 Problem Chronic obstructive pulmonary disease, unspecified COPD type J44.9 Active 95525925 Problem Transient cerebral ischemia, unspecified type G45.9 Active 010773947 Problem Hypercholesterolemia E78.00 Active 14419942 ALLERGIES No Known Allergies ENCOUNTERS Encounter Location Date Diagnosis [place] [address] [place] [address] 22553- 7900 October, [place] [address] [place] [id number] [place] [address] 73756- 8909 October, [place] [address] [place] [address] 08501- 6580 October, Cigarette nicotine dependence without complication F17.210 and Nicotine dependence, uncomplicated, unspecified nicotine product type F17.200 [facility] [address], [place] [address] 06 Sep, 2017 Medicare annual wellness visit, initial Z00.00 [place] [address] [place] [id number] [place] [address] 95839- 9567 02 Sep, 2017 Medicare annual wellness visit, initial Z00.00 ; Essential hypertension I10 ; Chronic obstructive pulmonary disease, unspecified COPD type J44.9 ; Hypercholesterolemia E78.00 and Coronary artery disease involving samish coronary artery of samish heart without angina pectoris I25.10 [place] [address], [place] [address] May, Chronic obstructive pulmonary disease, unspecified COPD type J44.9 and Encounter for immunization Z23 [place] [address] [place] [address] 25127- 3711 Apr, Chronic obstructive pulmonary disease, unspecified COPD type J44.9 [place] [address] [place] [id number] [place] [address] 02178- 4089 16 Apr, 2017 Chronic obstructive pulmonary disease, unspecified COPD type J44.9 ; Coronary artery disease involving samish coronary artery of samish heart without angina pectoris I25.10 and Encounter for immunization Z23 [place] [address] [place] [id number] [place] [address] 76507- 4608 14 Apr, 2017 Chronic obstructive pulmonary disease, unspecified COPD type J44.9 ; Encounter for immunization Z23 and Coronary artery disease involving samish coronary artery of samish heart without angina pectoris I25.10 [place] [address] [place] [id number] [place] [address] 98535- 1774 15 Jan, 2017 Coronary artery disease involving samish coronary artery of samish heart without angina pectoris I25.10 ; Hypercholesterolemia E78.00 ; Chronic obstructive pulmonary disease, unspecified COPD type J44.9 ; Transient cerebral ischemia, unspecified type G45.9 and Essential hypertension I10 [place] [address] [place] [address] 51365- 8032 Sep, Arthritis of left knee M19.90 [place] [address] [place] [id number] [place] [address] 06059- 8318 Apr, [place] [address] [place] [id number] [place] [address] 20061- 8933 08 Feb, 2015 Routine adult health maintenance V70.0 ; Essential hypertension, benign 401.1 and Allergic rhinitis due to allergen 477.9 [place] [address] [place] [id number] [place] [address] 71403- 5321 Feb, [facility] [place] [facility] [address] [id number] [place] [address]- 6264 14 Sep, 2014 [facility] [place] [facility] [address] [id number] [place] [address]- 7532 Sep, [facility] [place] [facility] [address] [id number] [place] [address]- 7280 Aug, [facility] [place] [facility] [address] [id number] [place] [address]- 3837 Aug, [facility] [place] [facility] [address] [id number] [place] [address]- 3402 Jul, [facility] [place] [facility] [address] [id number] [place] [address]- 1360 Jul, [facility] [place] [facility] [address] [id number] [place] [address]- 5499 Jul, [facility] [place] [facility] [address] [id number] [place] [address]- 5399 Jul, [facility] [place] [facility] [address] [id number] [place] [address]- 9066 Jun, [facility] [place] [facility] [address] [id number] [place] [address]- 7228 Jun, [facility] [place] [facility] [address] [id number] [place] [address]- 9713 Dec, [facility] [place] [facility] [address] [id number] [place] [address]- 5232 Dec, [facility] [place] [facility] [address] [id number] [place] [address]- 2706 Nov, [facility] [place] [facility] [address] [id number] [place] [address]- 0068 Nov, [facility] [place] [facility] [address] [id number] [place] [address]- 1585 Nov, [facility] [place] [facility] [address] [id number] [place] [address] 4654 Nov, IMMUNIZATIONS No Known Immunizations SOCIAL HISTORY Never Assessed REASON FOR VISIT Medicare AWV - Initial Visit-Erasmo HOLLIDAY, PHQ2, AUDIT C PLAN OF CARE Activity Details Follow Up 1 Year Reason: VITAL SIGNS Height 68 in 2017-09-28 Weight 199.2 lbs 2017-09-28 Temperature 97.8 degrees Fahrenheit 2017-09-28 Heart Rate 76 bpm 2017-09-28 Respiratory Rate 22 2017-09-28 BMI 30.28 kg/m2 2017-09-28 Blood pressure systolic 112 mmHg 2017-09-28 Blood pressure diastolic 74 mmHg 2017-09-28 MEDICATIONS Medication Instructions Dosage Frequency Start Date End Date Duration Status ProAir HFA 108 (90 Base) MCG/ACT Inhalation every 4 hrs 2 puffs as needed 4h Active Anoro Ellipta 62.5-25 MCG/INH Inhalation Once a day 1 puff 24h Active Flonase 50 MCG/ACT Nasally Once a day 1 spray in each nostril 24h Not-Taking Aspirin 81 MG Orally Once a day 1 tablet 24h Active Amlodipine Besylate 2.5 MG Orally Once a day 1 tablet 24h Active Plavix 75 mg 1 tablet by Oral route 1 time per day Active Metoprolol Succinate 50 mg oral Once a day at bedtime take 1 tab Active Lisinopril-Hydrochlorothiazide 20-25 MG Orally Once a day in the morning 1 tablet Active atorvastatin 10 mg take 1 tablet by Oral route 1 time per day QHS; Avoid grapefruit juice Active RESULTS No Results PROCEDURES Procedure Date Ordered Result Body Site ANNUAL HOLLYNES VST; PERSNL PPS INIT September 28, 2017 FALL RISK ASSESSMENT DOCD September 28, 2017 NEG SCR D PT NOT ELIG F/U/PLN DOC September 28, 2017 PT TOBACCO SCREEN RCVD TLK September 28, 2017 INSTRUCTIONS MEDICATIONS ADMINISTERED No Known Medications [...]
--- OUTSIDE RECORDS SUMMARY | 2018-08-25 22:32 | XMS REPORT ---
Author Author KM PHILLIPS Organization [facility] Address [address] [place] [address] Care Team Providers Care Restaurant Crew Person Name Role Phone KM PHILLIPS Unavailable PROBLEMS Type Condition ICD9-CM Code OSV49-MS Code Onset Dates Condition Status SNOMED Code Problem Coronary artery disease involving cahto coronary artery of cahto heart without angina pectoris I25.10 Active 1960509587418 Problem Nicotine dependence, uncomplicated, unspecified nicotine product type F17.200 Active 685900759 Problem Cigarette nicotine dependence without complication F17.210 Active 926583268 Problem Essential hypertension I10 Active 48661764 Problem Chronic obstructive pulmonary disease, unspecified COPD type J44.9 Active 98657129 Problem Transient cerebral ischemia, unspecified type G45.9 Active 622222533 Problem Hypercholesterolemia E78.00 Active 41659934 ALLERGIES No Information ENCOUNTERS Encounter Location Date Diagnosis [place] [address] [place] [address] 38136- 3290 October, [place] [address] [place] [id number] [place] [address] 12259- 1473 October, [place] [address] [place] [address] 87010- 2791 07 Oct, 2017 Cigarette nicotine dependence without complication F17.210 and Nicotine dependence, uncomplicated, unspecified nicotine product type F17.200 [place] [address] [place] [id number] [address] 86[address] 06 Sep, 2017 Medicare annual wellness visit, initial Z00.00 [place] [address] [place] [address] 95006- 1617 02 Sep, 2017 Medicare annual wellness visit, initial Z00.00 ; Essential hypertension I10 ; Chronic obstructive pulmonary disease, unspecified COPD type J44.9 ; Hypercholesterolemia E78.00 and Coronary artery disease involving cahto coronary artery of cahto heart without angina pectoris I25.10 [place] [address] [place] [address] 64188- 4120 May, Chronic obstructive pulmonary disease, unspecified COPD type J44.9 and Encounter for immunization Z23 [place] [address] [place] [address] 30530- 4339 Apr, Chronic obstructive pulmonary disease, unspecified COPD type J44.9 [place] [address] [place] [id number] [place] [address] 07065- 9837 16 Apr, 2017 Chronic obstructive pulmonary disease, unspecified COPD type J44.9 ; Coronary artery disease involving cahto coronary artery of cahto heart without angina pectoris I25.10 and Encounter for immunization Z23 [place] [address] [place] [id number] [place] [address] 36251- 0547 14 Apr, 2017 Chronic obstructive pulmonary disease, unspecified COPD type J44.9 ; Encounter for immunization Z23 and Coronary artery disease involving cahto coronary artery of cahto heart without angina pectoris I25.10 [place] [address] [place] [id number] [place] [address] 29175- 0598 15 Jan, 2017 Coronary artery disease involving cahto coronary artery of cahto heart without angina pectoris I25.10 ; Hypercholesterolemia E78.00 ; Chronic obstructive pulmonary disease, unspecified COPD type J44.9 ; Transient cerebral ischemia, unspecified type G45.9 and Essential hypertension I10 [place] [address] [place] [id number] [place] [address] 09203- 9204 Sep, Arthritis of left knee M19.90 [place] [address] [place] [id number] [place] [address] 69881- 6968 Apr, [place] [address] [place] [id number] [place] [address] 18376- 0590 Feb, Routine adult health maintenance V70.0 ; Essential hypertension, benign 401.1 and Allergic rhinitis due to allergen 477.9 [place] [address] [place] [id number] [place] [address] 80973- 0435 Feb, [place] [address] [id number] [place] [address]- 8323 14 Sep, 2014 [facility] [place] [facility] [address] [id number] [place] [address]- 8627 Sep, [facility] [place] [facility] [address] [id number] [place] [address]- 8334 Aug, [facility] [place] [facility] [address] [id number] [place] [address]- 6389 Aug, [facility] [place] [facility] [address] [id number] [place] [address]- 5172 Jul, [facility] [place] [facility] [address] [id number] [place] [address]- 2489 Jul, [facility] [place] [facility] [address] [id number] [place] [address]- 6541 Jul, [facility] [place] [facility] [address] [id number] [place] [address]- 9104 Jul, [facility] [place] [facility] [address] [id number] [place] [address]- 0825 Jun, [facility] [place] [facility] [address] [id number] [place] [address]- 4252 Jun, [facility] [place] [facility] [address] [id number] [place] [address]- 0721 Dec, [facility] [place] [facility] [address] [id number] [place] [address]- 8566 Dec, [facility] [place] [facility] [address] [id number] [place] [address]- 2137 Nov, [facility] [place] [facility] [address] [id number] [place] [address]- 9522 Nov, [facility] [place] [facility] [address] [id number] [place] [address]- 0534 Nov, [facility] [place] [facility] [address] [id number] [address]- 7986 Nov, IMMUNIZATIONS No Known Immunizations SOCIAL HISTORY Never Assessed REASON FOR VISIT Referral PLAN OF CARE VITAL SIGNS MEDICATIONS Unknown Medications RESULTS No Results PROCEDURES No Known procedures [...]
--- OUTSIDE RECORDS SUMMARY | 2018-08-25 22:32 | XMS REPORT ---
Author Author KM PHILLIPS Organization [facility] Address [address] [place] [address] Care Team Providers Care Senior Systems Software Engineer Name Role Phone KM PHILLIPS Unavailable PROBLEMS Type Condition ICD9-CM Code PEZ91-UA Code Onset Dates Condition Status SNOMED Code Problem Coronary artery disease involving [place] coronary artery of [place] heart without angina pectoris I25.10 Active 0727942752664 Problem Nicotine dependence, uncomplicated, unspecified nicotine product type F17.200 Active 217107964 Problem Cigarette nicotine dependence without complication F17.210 Active 598993273 Problem Essential hypertension I10 Active 11337562 Problem Chronic obstructive pulmonary disease, unspecified COPD type J44.9 Active 18017068 Problem Transient cerebral ischemia, unspecified type G45.9 Active 294138415 Problem Hypercholesterolemia E78.00 Active 61047457 ALLERGIES No Information ENCOUNTERS Encounter Location Date Diagnosis [place] [address] [place] [address] 33747- 4179 October, [place] [address] [place] [id number] [place] [address] 99825- 3514 October, [place] [address] [place] [address] 44268- 1943 07 Oct, 2017 Cigarette nicotine dependence without complication F17.210 and Nicotine dependence, uncomplicated, unspecified nicotine product type F17.200 [place] [address] [place] [id number] [address]- 3460 06 Sep, 2017 Medicare annual wellness visit, initial Z00.00 [place] [address] [place] [address] 22077- 9685 02 Sep, 2017 Medicare annual wellness visit, initial Z00.00 ; Essential hypertension I10 ; Chronic obstructive pulmonary disease, unspecified COPD type J44.9 ; Hypercholesterolemia E78.00 and Coronary artery disease involving [place] coronary artery of [place] heart without angina pectoris I25.10 [place] [address] [place] [address] 05536- 3572 May, Chronic obstructive pulmonary disease, unspecified COPD type J44.9 and Encounter for immunization Z23 [place] [address] [place] [address] 13563- 7060 Apr, Chronic obstructive pulmonary disease, unspecified COPD type J44.9 [place] [address] [place] [id number] [place] [address] 00079- 2572 16 Apr, 2017 Chronic obstructive pulmonary disease, unspecified COPD type J44.9 ; Coronary artery disease involving [place] coronary artery of [place] heart without angina pectoris I25.10 and Encounter for immunization Z23 [place] [address] [place] [id number] [place] [address] 20875- 8914 14 Apr, 2017 Chronic obstructive pulmonary disease, unspecified COPD type J44.9 ; Encounter for immunization Z23 and Coronary artery disease involving [place] coronary artery of [place] heart without angina pectoris I25.10 [place] [address] [place] [id number] [place] [address] 14071- 6660 15 Jan, 2017 Coronary artery disease involving [place] coronary artery of [place] heart without angina pectoris I25.10 ; Hypercholesterolemia E78.00 ; Chronic obstructive pulmonary disease, unspecified COPD type J44.9 ; Transient cerebral ischemia, unspecified type G45.9 and Essential hypertension I10 [place] [address] [place] [id number] [place] [address] 83469- 9795 Sep, Arthritis of left knee M19.90 [place] [address] [place] [id number] [place] [address] 49486- 2449 Apr, [place] [address] [place] [id number] [place] [address] 67786- 9876 Feb, Routine adult health maintenance V70.0 ; Essential hypertension, benign 401.1 and Allergic rhinitis due to allergen 477.9 [place] [address] [place] [id number] [place] [address] 48972- 4622 Feb, [place] [address] [id number] [place] [address]- 2205 14 Sep, 2014 [facility] [place] [facility] [address] [id number] [place] [address]- 3069 Sep, [facility] [place] [facility] [address] [id number] [place] [address]- 2335 Aug, [facility] [place] [facility] [address] [id number] [place] [address]- 7308 Aug, [facility] [place] [facility] [address] [id number] [place] [address]- 7221 Jul, [facility] [place] [facility] [address] [id number] [place] [address]- 6772 Jul, [facility] [place] [facility] [address] [id number] [place] [address]- 4655 Jul, [facility] [place] [facility] [address] [id number] [place] [address]- 8808 Jul, [facility] [place] [facility] [address] [id number] [place] [address]- 1606 Jun, [facility] [place] [facility] [address] [id number] [place] [address]- 0394 Jun, [facility] [place] [facility] [address] [id number] [place] [address]- 4895 Dec, [facility] [place] [facility] [address] [id number] [place] [address]- 6721 Dec, [facility] [place] [facility] [address] [id number] [place] [address]- 5475 Nov, [facility] [place] [facility] [address] [id number] [place] [address]- 9724 Nov, [facility] [place] [facility] [address] [id number] [place] [address]- 2840 Nov, [facility] [place] [facility] [address] [id number] [address]- 4246 Nov, IMMUNIZATIONS No Known Immunizations SOCIAL HISTORY Never Assessed REASON FOR VISIT change CT orders PLAN OF CARE VITAL SIGNS MEDICATIONS Unknown [...]
--- OUTSIDE RECORDS SUMMARY | 2018-08-25 22:32 | XMS REPORT ---
Author Author KM PHILLIPS [facility] e[employer] Address Unknown Phone Unavailable Care Team Providers Care Iron Miner Name Role Phone KM HPILLIPS CP Unavailable Allergies, Adverse Reactions, Alerts Substance Reaction Event Type N.K.D.A. Info Not Available Non Drug Allergy Problems Problem Type Condition Code Onset Dates [...] Active Problem Unspecified breast screening V76.10 Active Assessment Arthritis of left knee M19.90 Active Problem Essential hypertension, benign 401.1 Active Medications Medication Code System Code Instructions Start Date End Date Status Dosage Lisinopril-Hydrochlorothiazide [facility] [address]-43 20-25 MG Orally Once a day in the morning January 03, 2014 1 tablet Aspirin [facility] [address]-60 81 MG Orally Once a day Aug 11, 2014 1 tablet Metoprolol Succinate NDC 0 50 mg oral Once a day at bedtime January 03, 2014 take 1 tab Flonase [facility] [address]-37 50 MCG/ACT Nasally Once a day Mar 06, 2015 1 spray in each nostril atorvastatin NDC 0 10 mg Jul 18, 2014 take 1 tablet by Oral route 1 time per day QHS; Avoid grapefruit juice Plavix [facility] [address]-07 75 mg Jul 18, 2014 1 tablet by Oral route 1 time per day Procedures Procedure Coding System Code Date Office Visit, Est Pt., Level 2 CPT-4 40555 October 15, 2015 [facility] VISIT ESTABLISHED PATIENT CPT-4 G0467 October 15, 2015 Vital Signs Date/Time: October 15, 2015 Temperature 98.1 F Weight 194.6 lbs Height 68 in BMI 29.59 Index Blood Pressure Diastolic 78 mmHg Blood Pressure Systolic 132 mmHg Cardiac Monitoring Heart Rate 64 bpm Results No Known Results Summary Purpose eClinicalWorks Submission
--- OUTSIDE RECORDS SUMMARY | 2018-08-25 22:32 | XMS REPORT ---
Author Author KM PHILLIPS Organization [facility] Address [address] [place] [address] Care Team Providers Care Seater Grinder Name Role Phone KM PHILLIPS Unavailable PROBLEMS Type Condition ICD9-CM Code NVO87-IG Code Onset Dates Condition Status SNOMED Code Problem Coronary artery disease involving [place] coronary artery of [place] heart without angina pectoris I25.10 Active [id number] Problem Nicotine dependence, uncomplicated, unspecified nicotine product type F17.200 Active 181017746 Problem Cigarette nicotine dependence without complication F17.210 Active 867556743 Problem Essential hypertension I10 Active 10694730 Problem Chronic obstructive pulmonary disease, unspecified COPD type J44.9 Active 92283281 Problem Transient cerebral ischemia, unspecified type G45.9 Active 888309417 Problem Hypercholesterolemia E78.00 Active 91984940 ALLERGIES No Information ENCOUNTERS Encounter Location Date Diagnosis [place] [id number] [place] [address] 19833- 0112 October, [place] [address] [place] [id number] [place] [address] 09314- 8667 October, [place] [id number] [place] [address] 55781- 1994 07 Oct, 2017 Cigarette nicotine dependence without complication F17.210 and Nicotine dependence, uncomplicated, unspecified nicotine product type F17.200 [place] [address] [place] [id number] [address] 06 Sep, 2017 Medicare annual wellness visit, initial Z00.00 [place] [address] [place] [address] 33161- 1801 02 Sep, 2017 Medicare annual wellness visit, initial Z00.00 ; Essential hypertension I10 ; Chronic obstructive pulmonary disease, unspecified COPD type J44.9 ; Hypercholesterolemia E78.00 and Coronary artery disease involving [place] coronary artery of [place] heart without angina pectoris I25.10 [place] [address] [place] [address] 04296- 2051 May, Chronic obstructive pulmonary disease, unspecified COPD type J44.9 and Encounter for immunization Z23 [place] [address] [place] [address] 81585- 7661 Apr, Chronic obstructive pulmonary disease, unspecified COPD type J44.9 [place] [address] [place] [id number] [place] [address] 20070- 1553 16 Apr, 2017 Chronic obstructive pulmonary disease, unspecified COPD type J44.9 ; Coronary artery disease involving [place] coronary artery of [place] heart without angina pectoris I25.10 and Encounter for immunization Z23 [place] [address] [place] [id number] [place] [address] 63490- 1028 14 Apr, 2017 Chronic obstructive pulmonary disease, unspecified COPD type J44.9 ; Encounter for immunization Z23 and Coronary artery disease involving [place] coronary artery of [place] heart without angina pectoris I25.10 [place] [address] [place] [id number] [place] [address] 93797- 5137 15 Jan, 2017 Coronary artery disease involving [place] coronary artery of [place] heart without angina pectoris I25.10 ; Hypercholesterolemia E78.00 ; Chronic obstructive pulmonary disease, unspecified COPD type J44.9 ; Transient cerebral ischemia, unspecified type G45.9 and Essential hypertension I10 [place] [address] [place] [id number] [place] [address] 21732- 7758 Sep, Arthritis of left knee M19.90 [place] [address] [place] [id number] [place] [address] 22236- 6163 Apr, [place] [address] [place] [id number] [place] [address] 38448- 7656 Feb, Routine adult health maintenance V70.0 ; Essential hypertension, benign 401.1 and Allergic rhinitis due to allergen 477.9 [place] [address] [place] [id number] [place] [address] 32419- 3717 Feb, [place] [address] [id number] [place] [address] 0071 14 Sep, 2014 [facility] [place] [facility] [address] [id number] [place] [address] 5011 Sep, [facility] [place] [facility] [address] [id number] [place] [address]- 8731 Aug, [facility] [place] [facility] [address] [id number] [place] [address]- 7006 Aug, [facility] [place] [facility] [address] [id number] [place] [address]- [address] Jul, [facility] [place] [facility] [address] [id number] [place] [address]- 4585 Jul, [facility] [place] [facility] [address] [id number] [place] [address]- 0133 Jul, [facility] [place] [facility] [address] [id number] [place] [address]- 3291 Jul, [facility] [place] [facility] [address] [id number] [place] [address]- 4350 Jun, [facility] [place] [facility] [address] [id number] [place] [address]- 4035 Jun, [facility] [place] [facility] [address] [id number] [place] [address]- 1425 Dec, [facility] [place] [facility] [address] [id number] [place] [address]- 6030 Dec, [facility] [place] [facility] [address] [id number] [place] [address]- 1709 Nov, [facility] [place] [facility] [address] [id number] [place] [address]- 0324 Nov, [facility] [place] [facility] [address] [id number] [place] [address]- 9083 Nov, [facility] [place] [facility] [address] [id number] [address] Nov, IMMUNIZATIONS No Known Immunizations SOCIAL HISTORY Never Assessed REASON FOR VISIT referral PLAN OF CARE VITAL SIGNS MEDICATIONS Unknown [...]
--- OUTSIDE RECORDS SUMMARY | 2018-08-25 22:33 | XMS REPORT | Continuity of Care Document ---
Author Author [facility] Address Unknown Phone Unavailable Allergies Active Description Code Type Severity Reaction Onset Reported/Identified Relationship to Patient Clinical Status Yes No Known Drug Allergies [id number] Drug Allergy Unknown N/A 07/10/2014 Medications There is no data. Problems Date Dx Coded Attending Type Code Diagnosis Diagnosed By 12/20/2013 NIKKY MCDONALD DO 362.11 HYPERTENSIVE RETINOPATHY 12/20/2013 NIKKY MCDONALD DO 401.1 HYPERTENSION, BENIGN ESSENTIAL 12/20/2013 NIKKY MCDONALD DO 709.9 UNSPECIFIED DISORDER OF SKIN AND SUBCUTANEOUS TISSUE 12/20/2013 NIKKY MCDONALD DO V70.0 ROUTINE GENERAL MEDICAL EXAMINATION AT A HEALTH CARE FACILITY 12/20/2013 NIKKY MCDONALD DO V76.10 BREAST CANCER SCREENING 12/20/2013 NIKKY MCDONALD DO V76.51 COLON CANCER SCREENING 12/20/2013 NIKKY MCDONALD DO V82.81 SPECIAL SCREENING FOR OSTEOPOROSIS 12/20/2013 NIKKY MCDONALD DO 362.11 HYPERTENSIVE RETINOPATHY 12/20/2013 NIKKY MCDONALD DO 401.1 HYPERTENSION, BENIGN ESSENTIAL 12/20/2013 NIKKY MCDONALD DO 709.9 UNSPECIFIED DISORDER OF SKIN AND SUBCUTANEOUS TISSUE 12/20/2013 NIKKY MCDONALD DO V70.0 ROUTINE GENERAL MEDICAL EXAMINATION AT A HEALTH CARE FACILITY 12/20/2013 NIKKY MCDONALD DO V76.10 BREAST CANCER SCREENING 12/20/2013 NIKKY MCDONALD DO V76.51 COLON CANCER SCREENING 12/20/2013 NIKKY MCDONALD DO V82.81 SPECIAL SCREENING FOR OSTEOPOROSIS 12/20/2013 KM PHILLIPS MD 362.11 HYPERTENSIVE RETINOPATHY 12/20/2013 KM PHILLIPS MD 401.1 HYPERTENSION, BENIGN ESSENTIAL 12/20/2013 KM PHILLIPS MD 709.9 UNSPECIFIED DISORDER OF SKIN AND SUBCUTANEOUS TISSUE 12/20/2013 KM PHILLIPS MD V70.0 ROUTINE GENERAL MEDICAL EXAMINATION AT A HEALTH CARE FACILITY 12/20/2013 KM PHILLIPS MD V76.10 BREAST CANCER SCREENING 12/20/2013 KM PHILLIPS MD V76.51 COLON CANCER SCREENING 12/20/2013 KM PHILLIPS MD V82.81 SPECIAL SCREENING FOR OSTEOPOROSIS 07/12/2014 KM PHILLIPS MD Ot 272.4 HYPERLIPIDEMIA NEC/NOS 07/12/2014 KM PHILLIPS MD Ot 305.1 TOBACCO USE DISORDER 07/12/2014 KM PHILLIPS MD Ot 311 DEPRESSIVE DISORDER NEC 07/12/2014 KM PHILLIPS MD Ot 401.9 HYPERTENSION NOS 07/12/2014 KM PHILLIPS MD, Ot 433.10 CAROTID ARTERY OCCLUSION W O CEREBRAL IN 07/12/2014 KM PHILLIPS MD, Ot 433.30 MULT BILTRAL ARTERY OCCLUSION WO CEREBRA 07/12/2014 KM PHILLIPS MD, Ot 496 CHR AIRWAY OBSTRUCT NEC 07/12/2014 KM PHILLIPS MD, Ot 593.9 RENAL URETERAL DIS NOS 07/18/2014 KM PHILLIPS MD 412 OLD MYOCARDIAL INFARCTION 07/18/2014 KM PHILLIPS MD 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 [place]ER 37 mL/min/1.73m2 > OR=60 eGFR 42 mL/min/1.73m2 > OR=60 BUN/CREATININE RATIO 12 (calc) 6-22 SODIUM 137 mmol/L 135-146 POTASSIUM 4.7 mmol/L 3.5-5.3 CHLORIDE 102 mmol/L 98-110 CARBON DIOXIDE 26 mmol/L 20-31 CALCIUM 8.8 mg/dL 8.6-10.4 PROTEIN, TOTAL 6.2 g/dL 6.1-8.1 ALBUMIN 3.5 g/dL 3.6-5.1 GLOBULIN 2.7 g/dL (calc) 1.9-3.7 ALBUMIN/GLOBULIN RATIO 1.3 (calc) 1.0-2.5 BILIRUBIN, TOTAL 0.6 mg/dL 0.2-1.2 ALKALINE PHOSPHATASE 82 U/L 33-130 AST 11 U/L 10-35 ALT 10 U/L 6-29 Complete blood count (CBC) with automated white blood cell (WBC) differential - 08/25/18 20:22 Blood leukocytes automated count (number/volume) 6.9 10*3/uL 4.3-11.0 Blood erythrocytes automated count (number/volume) 4.09 10*6/uL 4.35-5.85 Venous blood hemoglobin measurement (mass/volume) 14.2 g/dL 11.5-16.0 Blood hematocrit (volume fraction) 39 % 35-52 Automated erythrocyte mean corpuscular volume 95 [foz_us] 80-99 Automated erythrocyte mean corpuscular hemoglobin (mass per erythrocyte) 35 pg 25-34 Automated erythrocyte mean corpuscular hemoglobin concentration measurement ( mass/volume) 37 g/dL 32-36 Automated erythrocyte distribution width ratio 14.9 % 10.0-14.5 Automated blood platelet count (count/volume) 174 10*3/uL 130-400 Automated blood platelet mean volume measurement 9.3 [foz_us] 7.4-10.4 Automated blood neutrophils/100 leukocytes 59 % 42-75 Automated blood lymphocytes/100 leukocytes 29 % 12-44 Blood monocytes/100 leukocytes 11 % 0-12 Automated blood eosinophils/100 leukocytes 0 % 0-10 Automated blood basophils/100 leukocytes 0 % 0-10 Blood neutrophils automated count (number/volume) 4.1 10*3 1.8-7.8 Blood lymphocytes automated count (number/volume) 2.0 10*3 1.0-4.0 Blood monocytes automated count (number/volume) 0.8 10*3 0.0-1.0 Automated eosinophil count 0.0 10*3/uL 0.0-0.3 Automated blood basophil count (count/volume) 0.0 10*3/uL 0.0-0.1 PT panel in platelet poor plasma by coagulation assay - 08/25/18 20:22 Prothrombin time (PT) in platelet poor plasma by coagulation assay 12.9 s 12.2-14.7 INR in platelet poor plasma or blood by coagulation assay 1.0 0.8-1.4 Activated partial thromboplastin time (aPTT) in platelet poor plasma bycoagulation assay - 08/25/18 20:22 Activated partial thromboplastin time (aPTT) in platelet poor plasma bycoagulation assay 32 s 24-35 Blood lactic acid measurement (moles/volume) - 08/25/18 20:22 Blood lactic acid measurement (moles/volume) 1.91 mmol/L 0.50-2.00 Comprehensive metabolic panel - 08/25/18 20:22 Serum or plasma sodium measurement (moles/volume) 119 mmol/L 135-145 Serum or plasma potassium measurement (moles/volume) 4.0 mmol/L 3.6-5.0 Serum or plasma chloride measurement (moles/volume) 85 mmol/L 98-107 Carbon dioxide 20 mmol/L 21-32 Serum or plasma anion gap determination (moles/volume) 14 mmol/L 5-14 Serum or plasma urea nitrogen measurement (mass/volume) 18 mg/dL 7-18 Serum or plasma creatinine measurement (mass/volume) 1.38 mg/dL 0.60-1.30 Serum or plasma urea nitrogen/creatinine mass ratio 13 NRG Serum or plasma creatinine measurement with calculation of estimated glomerular filtration rate 37 NRG Serum or plasma glucose measurement (mass/volume) 124 mg/dL 70-105 Serum or plasma calcium measurement (mass/volume) 9.0 mg/dL 8.5-10.1 Serum or plasma total bilirubin measurement (mass/volume) 0.8 mg/dL 0.1-1.0 Serum or plasma alkaline phosphatase measurement (enzymatic activity/volume) 100 U/L 40-136 Serum or plasma aspartate aminotransferase measurement (enzymatic activity/ volume) 25 U/L 5-34 Serum or plasma alanine aminotransferase measurement (enzymatic activity/volume ) 14 U/L 0-55 Serum or plasma protein measurement (mass/volume) 7.3 g/dL 6.4-8.2 Serum or plasma albumin measurement (mass/volume) 3.9 g/dL 3.2-4.5 CALCIUM CORRECTED 9.1 mg/dL 8.5-10.1 Magnesium - 08/25/18 20:22 Magnesium 1.9 mg/dL 1.8-2.4 Serum or plasma troponin i.cardiac measurement (mass/volume) - 08/25/18 20:22 Serum or plasma troponin i.cardiac measurement (mass/volume) < ng/ mL <0.028 Serum or plasma lithium measurement (moles/volume) - 08/25/18 20:22 BNP level 79.5 pg/mL <100.0 Influenza virus A and B antigen detection - 08/25/18 20:29 FLU RESULT NEGATIVE FOR INFLUENZA A AND B ANTIGENS BY IA NRG Arterial blood gas measurement - 08/25/18 20:50 Blood pCO2 36 mm[Hg] 35-45 Blood pO2 64 mm[Hg] 79-93 Arterial blood bicarbonate measurement (moles/volume) 24 mmol/L 23-27 Arterial blood base excess by calculation -0.2 mmol/L - 2.5-2.5 Arterial blood oxygen saturation measurement 94 % 94-100 * Inhaled oxygen flow rate 2L NRG Arterial blood pH measurement with patient temperature correction 7.43 7.37-7.43 Arterial blood carbon dioxide, total measurement (moles/volume) 24.8 mmol/L 21.0-31.0 Body site L RAD NRG Assessment of wrist artery patency prior to arterial puncture YES- POS NRG Setting of ventilation mode NO NRG Measurement of body temperature 97.2 NRG Encounters ACCT No. Visit Date/Time Discharge Status Pt. Type Provider Facility Loc./Unit Complaint [id number] 08/05/2014 12:06:00 08/05/2014 23:59:59 CLS Outpatient KM PHILLIPS MD [id number] 01/03/2014 08:12:00 01/03/2014 23:59:59 CLS Outpatient NIKKY MCDONALD DO [id number] 12/20/2013 13:27:00 12/20/2013 23:59:59 [place] [id number] 10/02/2017 14:40:00 10/02/2017 23:59:59 [facility] Outpatient [facility] [id number] 05/14/2017 08:40:00 Document Registration [id number] 10/12/2017 13:15:00 10/12/2017 23:59:59 CLS Preadmit KM PHILLIPS MD [facility] RAD CHEST PAIN,NEW SOB,NEW COUGH [id number] 05/26/2017 11:17:00 05/26/2017 23:59:59 CLS Preadmit HOLLAND TURPIN [facility] RAD E63.9 CVA [id number] 05/26/2017 11:15:00 05/26/2017 23:59:59 CLS Preadmit HOLLAND TURPIN [facility] I63.9 CVA [id number] 10/27/2016 10:00:00 10/27/2016 23:59:59 CLS Preadmit ADILSON STEINER MD [facility] CARD I63.9,I65.29,I10 [id number] 07/10/2014 22:16:00 07/12/2014 15:05:00 DIS Inpatient ALAN PATEL, KM Rocha [facility] 4TH RIGHT SIDED WEAKNESS AND FACIAL DROOP;HYPERTENSIVE [id number] 08/25/2018 21:30:00 ACT Inpatient SRIDEVI MURDOCK DO [facility] ICU COPD EXACERBATION,HYPONATREMIA
--- OUTSIDE RECORDS SUMMARY | 2018-08-25 22:33 | XMS REPORT ---
Author Author KM PHILLIPS Organization [facility] Address [address] [place] [address] Care Team Providers Care Plant Wire Chief Name Role Phone KM PHILLIPS Unavailable PROBLEMS Type Condition ICD9-CM Code ZPB39-BB Code Onset Dates Condition Status SNOMED Code Problem Coronary artery disease involving [place] coronary artery of [place] heart without angina pectoris I25.10 Active 8913219818206 Problem Nicotine dependence, uncomplicated, unspecified nicotine product type F17.200 Active 580124052 Problem Cigarette nicotine dependence without complication F17.210 Active 979157458 Problem Essential hypertension I10 Active 75551758 Problem Chronic obstructive pulmonary disease, unspecified COPD type J44.9 Active 32846850 Problem Transient cerebral ischemia, unspecified type G45.9 Active 225561489 Problem Hypercholesterolemia E78.00 Active 05141683 ALLERGIES No Known Allergies ENCOUNTERS Encounter Location Date Diagnosis [place] [address] [place] [address] 11532- 4693 October, [place] [address] [place] [id number] [place] [address] 66023- 9561 October, [place] [address] [place] [address] 97269- 6760 07 Oct, 2017 Cigarette nicotine dependence without complication F17.210 and Nicotine dependence, uncomplicated, unspecified nicotine product type F17.200 [facility] [address], [place] [address] 06 Sep, 2017 Medicare annual wellness visit, initial Z00.00 [place] [address] [place] [id number] [place] [address] 58335- 4590 02 Sep, 2017 Medicare annual wellness visit, initial Z00.00 ; Essential hypertension I10 ; Chronic obstructive pulmonary disease, unspecified COPD type J44.9 ; Hypercholesterolemia E78.00 and Coronary artery disease involving [place] coronary artery of [place] heart without angina pectoris I25.10 [place] [address] [address]- 14[address] May, Chronic obstructive pulmonary disease, unspecified COPD type J44.9 and Encounter for immunization Z23 [place] [address] [place] [address] 61169- 8273 Apr, Chronic obstructive pulmonary disease, unspecified COPD type J44.9 [place] [address] [place] [id number] [place] [address] 08397- 2722 16 Apr, 2017 Chronic obstructive pulmonary disease, unspecified COPD type J44.9 ; Coronary artery disease involving [place] coronary artery of [place] heart without angina pectoris I25.10 and Encounter for immunization Z23 [place] [address] [place] [id number] [place] [address] 23146- 3460 14 Apr, 2017 Chronic obstructive pulmonary disease, unspecified COPD type J44.9 ; Encounter for immunization Z23 and Coronary artery disease involving [place] coronary artery of [place] heart without angina pectoris I25.10 [place] [address] [place] [id number] [place] [address] 29272- 6840 15 Jan, 2017 Coronary artery disease involving [place] coronary artery of [place] heart without angina pectoris I25.10 ; Hypercholesterolemia E78.00 ; Chronic obstructive pulmonary disease, unspecified COPD type J44.9 ; Transient cerebral ischemia, unspecified type G45.9 and Essential hypertension I10 [place] [address] [place] [address] 84458- 7182 Sep, Arthritis of left knee M19.90 [place] [address] [place] [id number] [place] [address] 63880- 7680 Apr, [place] [address] [place] [id number] [place] [address] 09117- 5346 08 Feb, 2015 Routine adult health maintenance V70.0 ; Essential hypertension, benign 401.1 and Allergic rhinitis due to allergen 477.9 [place] [address] [place] [id number] [place] [address] 48804- 1964 Feb, [facility] [place] [facility] [address] [id number] [place] [address]- 2886 14 Sep, 2014 [facility] [place] [facility] [address] [id number] [place] [address]- 2022 Sep, [facility] [place] [facility] [address] [id number] [place] [address]- 7831 Aug, [facility] [place] [facility] [address] [id number] [place] [address]- 8616 Aug, [facility] [place] [facility] [address] [id number] [place] [address]- 8086 Jul, [facility] [place] [facility] [address] [id number] [place] [address]- 7745 Jul, [facility] [place] [facility] [address] [id number] [place] [address]- 4998 Jul, [facility] [place] [facility] [address] [id number] [place] [address]- 3103 Jul, [facility] [place] [facility] [address] [id number] [place] [address]- 2737 Jun, [facility] [place] [facility] [address] [id number] [place] [address]- 0900 Jun, [facility] [place] [facility] [address] [id number] [place] [address]- 5149 Dec, [facility] [place] [facility] [address] [id number] [place] [address]- 8196 Dec, [facility] [place] [facility] [address] [id number] [place] [address]- 7715 Nov, [facility] [place] [facility] [address] [id number] [place] [address]- 6476 Nov, [facility] [place] [facility] [address] [id number] [place] [address]- 1650 Nov, [facility] [place] [facility] [address] [id number] [place] [address]- [address]89 Nov, IMMUNIZATIONS Vaccine Route Administration Date Status ZOSTER (ZOSTAVAX) [place] Subcutaneous Jun 23, 2017 Administered SOCIAL HISTORY Never Assessed REASON FOR VISIT PFT f/u----DBennettRN PLAN OF CARE Activity Details Follow Up 3 Months Reason: VITAL SIGNS Height 68 in 2017-06-23 Weight 188 lbs 2017-06-23 Temperature 98.0 degrees Fahrenheit 2017-06-23 Heart Rate 70 bpm 2017-06-23 Respiratory Rate 20 2017-06-23 BMI 28.58 kg/m2 2017-06-23 Blood pressure systolic 122 mmHg 2017-06-23 Blood pressure diastolic 80 mmHg 2017-06-23 MEDICATIONS Medication Instructions Dosage Frequency Start Date End Date Duration Status Flonase 50 MCG/ACT Nasally Once a day 1 spray in each nostril 24h Feb, Not-Taking atorvastatin 10 mg take 1 tablet by Oral route 1 time per day QHS; Avoid grapefruit juice Jun, Active Metoprolol Succinate 50 mg oral Once a day at bedtime take 1 tab Dec, Active Amlodipine Besylate 2.5 MG Orally Once a day 1 tablet 24h Active Plavix 75 mg 1 tablet by Oral route 1 time per day Jun, Active ProAir HFA 108 (90 Base) MCG/ACT Inhalation every 4 hrs 2 puffs as needed 4h May, Active Anoro Ellipta 62.5-25 MCG/INH Inhalation Once a day 1 puff 24h May, Active Aspirin 81 MG Orally Once a day 1 tablet 24h Jul, Active Lisinopril-Hydrochlorothiazide 20-25 MG Orally Once a day in the morning 1 tablet Dec, Active RESULTS No Results PROCEDURES Procedure Date Ordered Result Body Site [facility] VISIT ESTABLISHED PATIENT Jun 23, 2017 SINGLE IMMUNIZATION ADMIN Jun 23, 2017 ZOSTER (ZOSTAVAX) Jun 23, 2017 INSTRUCTIONS MEDICATIONS ADMINISTERED No Known Medications [...]
--- OUTSIDE RECORDS SUMMARY | 2018-08-25 22:33 | XMS REPORT ---
Author Author JOANNE STILES Organization [employer] Address Unknown Phone Unavailable Care Team Providers Care Field Care Manager Name Role Phone JOANNE STILES CP Unavailable Allergies No Known Allergies Problems Problem Type Condition ICD-9 Code Onset Dates Condition Status Problem Hypertensive [...]
--- OUTSIDE RECORDS SUMMARY | 2018-08-25 22:33 | XMS REPORT ---
Author Author ILIR GAMA [facility] eClinicalWorks Address Unknown Phone Unavailable Care Team Providers Care Vamp Cut Out Worker Name Role Phone ILIR GAMA CP Unavailable Allergies, Adverse Reactions, Alerts Substance Reaction Event Type N.K.D.A. Info Not Available Non Drug Allergy Problems Problem Type Condition ICD-9 Code Onset [...] Active Problem Unspecified cerebrovascular disease 437.9 Active Assessment Allergic rhinitis due to allergen 477.9 Active Problem Unspecified disorder of skin and subcutaneous tissue 709.9 Active Problem Special screening for osteoporosis V82.81 Active Assessment Essential hypertension, benign 401.1 Active Problem Unspecified breast screening V76.10 Active Assessment Routine adult health maintenance V70.0 Active Problem Essential hypertension, benign 401.1 Active Medications Medication Code System Code Instructions Start Date End Date Status Dosage Aspirin [facility] [address]-39 81 MG Orally Once a day Aug 11, 2014 1 tablet Metoprolol Succinate NDC 0 50 mg oral Once a day at bedtime January 03, 2014 take 1 tab Flonase [facility] [address]-99 50 MCG/ACT Nasally Once a day Mar 06, 2015 1 spray in each nostril Lisinopril-Hydrochlorothiazide [facility] [address]-03 20-25 MG Orally Once a day in the morning January 03, 2014 1 tablet atorvastatin NDC 0 10 mg Jul 18, 2014 take 1 tablet by Oral route 1 time per day QHS; Avoid grapefruit juice Plavix [facility] [address]-46 75 mg Jul 18, 2014 1 tablet by Oral route 1 time per day Procedures Procedure Coding System Code Date Office Visit, Est Pt., Level 4 CPT-4 49521 Mar 06, 2015 [facility] VISIT ESTABLISHED PATIENT CPT-4 G0467 Mar 06, 2015 Vital Signs Date/Time: Mar 06, 2015 Temperature 98.5 F Weight 197.7 lbs Height 68 in BMI 30.06 Index Blood Pressure Diastolic 78 mmHg Blood Pressure Systolic 124 mmHg Cardiac Monitoring Heart Rate 78 bpm Results No Known Results Summary Purpose eClinicalWorks Submission
[2018-08-25 22:34] LABS: BACTERIA,URINE LARGE /HPF; RBC,URINE 0-2 /HPF; WBC,URINE >100 /HPF
[2018-08-25] MEDS ORDERED: cefTRIAXone 1,000 MG IV (ROCEPHIN) VIAL ONE (22:43)
[2018-08-25] MEDS ORDERED: WATER (STERILE) FOR INJECTION 10 ML ONE (22:43)
--- NOTE | 2018-08-25 22:45 | NUR ---
PT HAD X1 EPISODE OF URINARY INCONTINENCE.
--- NOTE | 2018-08-25 23:26 | NUR ---
TABATHA MARSHALL admitted to room CU7-1, with an admitting diagnosis of COPD exacerbation,Hyponatremia,UTI, on 08/25/18 from [facility] ED via stretcher, accompanied by Daughter Astrid Pinto.TABATHA MARSHALL introduced to surroundings, call light, bed controls, phone, TV, temperature control, lights, meal times, smoking policy, visitor policy, side rail policy, bathrooms and showers. Patient Rights given to patient in the handbook. TABATHA MARSHALL verbalizes understanding that [facility] is not responsible for the loss or damage to any personal effects or valuables that are kept in the patients possession during their hospitalization. The following Patient Care Plans were discussed with the patient and daughter: Discharge Planning, pain management,respiratory distress, and activity intolerance. TABATHA MARSHALL verbalizes understanding of Interdisciplinary Patient Education. Patient and/or family were informed about the Rapid Response Team and its purpose. Patient daughter took all personal items home with her. Patient purse, wallet and medication.
[2018-08-25 23:30] VITALS: BP 100/81
[2018-08-25 23:50] VITALS: BP 113/65
[2018-08-26] VITALS (7 sets, daily range): BP systolic 97–146; BP diastolic 43–78
[2018-08-26] MEDS ORDERED: METO-370 PO (00:07)
[2018-08-26] MEDS ORDERED: AMLO2.5T4 PO (00:07)
[2018-08-26] MEDS ORDERED: LISI1TAB10 PO (00:07)
[2018-08-26] MEDS ORDERED: ACETAMINOPHEN 325 MG TABLET PO PRN (00:15)
[2018-08-26] MEDS: NS IV 1000 ML 1,000 ML IV SCH ×3 (00:15→19:42)
[2018-08-26] MEDS: RT-ALBUTEROL/IPRATROPIUM 3 ML (DUONEB) VIAL INH SCH ×5 (02:01→21:32)
[2018-08-26] MEDS: methylPREDNISolone 40 MG/ML (Solu-MEDROL) VIAL IV SCH ×4 (02:54→22:16)
[2018-08-26 03:55] LABS: BASOPHILS % (AUTO) 0 % (0-10); EOSINOPHILS % (AUTO) 0 % (0-10); HEMATOCRIT 35 % (35-52); HEMOGLOBIN 12.6 G/DL (11.5-16.0); LYMPHOCYTES # (AUTO) 0.5 X 10^3 (1.0-4.0); LYMPHOCYTES % (AUTO) 7 % (12-44); MEAN CORPUSCULAR HEMOGLOBIN 35 PG (25-34); MEAN CORPUSCULAR HGB CONC 37 G/DL (32-36); MEAN CORPUSCULAR VOLUME 95 FL (80-99); MEAN PLATELET VOLUME 9.5 FL (7.4-10.4); MONOCYTES # (AUTO) 0.2 X 10^3 (0.0-1.0); MONOCYTES % (AUTO) 2 % (0-12); NEUTROPHILS % (AUTO) 90 % (42-75); PLATELET COUNT 167 10^3/uL (130-400); RED CELL DISTRIBUTION WIDTH 14.8 % (10.0-14.5); WHITE BLOOD COUNT 6.7 10^3/uL (4.3-11.0)
[2018-08-26 04:16] LABS: ANISOCYTOSIS SLIGHT; BAND NEUTROPHILS 0 %; BASOPHILS % (MANUAL) 0 %; EOSINOPHILS % (MANUAL) 0 %; LYMPHOCYTES % (MANUAL) 8 %; MONOCYTES % (MANUAL) 1 %; NEUTROPHILS % (MANUAL) 91 %
[2018-08-26 04:30] LABS: ALBUMIN 3.5 GM/DL (3.2-4.5); BILIRUBIN,TOTAL 0.5 MG/DL (0.1-1.0); CALCIUM 8.3 MG/DL (8.5-10.1); CREATININE SERUM 1.87 MG/DL (0.60-1.30); POTASSIUM 3.7 MMOL/L (3.6-5.0); TOTAL PROTEIN 6.4 GM/DL (6.4-8.2)
[2018-08-26] MEDS ORDERED: KCL 20 MEQ TAB (K-DUR) PO ONE (05:00)
[2018-08-26] MEDS ORDERED: SODIUM BICARB 8.4% 50 MEQ/50 ML (ABBOTT) SYR IV ONE (05:00)
--- NOTE | 2018-08-26 05:12 | Pulmonary Consultation ---
History of Present Illness History of Present Illness Date of Consultation 08/26/18 04:57 Time Seen by Provider: 05:56 Date of Admission History of Present Illness 78yo with hx of COPD without home oxygen presented to ED secondary to worsening SOB, wheezing, and loose nonproductive cough. She was found to be hypoxic with Sp02 of 86% while on RA. No fever/Chills. Symptoms started 2wks prior. She has had a productive cough of blood streaked sputum. No prior episodes like this. I am consulted for pulmonary/CC management. Allergies and Home Medications Allergies Coded Allergies: No Known Drug Allergies (Unverified , 07/10/14) Home Medications Amlodipine Besylate 2.5 Mg Tablet, 2.5 MG PO DAILY, (Reported) Clopidogrel Bisulfate 75 Mg Tab, 75 MG PO DAILY Prescribed by: MERISSA SCHWARTZ on 07/12/14 1401 Lisinopril/Hydrochlorothiazide 1 Each Tablet, 1 EACH PO DAILY, (Reported) Metoprolol Succinate 50 Mg Tab.er.24h, 50 MG PO HS, (Reported) [Aspirin] 81 MG TABEC, 81 MG PO DAILY Prescribed by: MERISSA SCHWARTZ on 07/12/14 1401 [Atorvastatin Calcium] 10 MG TABLET, 10 MG PO HS Prescribed by: MERISSA SCHWARTZ on 07/12/14 1401 Past Hgtvnho-Fpugeo-Lwlucr Hx Past Med/Social Hx: Reviewed Nursing Past Med/Soc Hx Patient Social History Recent Foreign Travel: No Contact w/Someone Who Travel: No Recent Infectious Disease Expo: No Immunizations Up To Date Tetanus Booster (TDap): Unknown PED Vaccines UTD: Yes Date of Pneumonia Vaccine: May 25, 2018 Date of Influenza Vaccine: May 25, 2018 Seasonal Allergies Seasonal Allergies: No Past Medical History Hysterectomy COPD Hypertension Reproductive Disorders: No 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 Sexually Transmitted Disease: No HIV/AIDS: No Macular Degeneration Hearing Impairment: Denies Adverse Reaction/Blood Tranf: No Family Medical History Reviewed Nursing Family Hx Cardiovascular disease 19 FATHER, Diabetes mellitus G8 SISTER, Onset:Unknown FH: COPD (chronic obstructive pulmonary disease) 19 FATHER, , Onset:Unknown FH: leukemia 19 MOTHER (leukemia), , Onset:Unknown Hypertension 19 FATHER, Myocardial infarction G8 BROTHER, , Onset:Unknown Review of Systems Time Seen by Provider: 05:59 Constitutional: Sweats, Weakness, Malaise; No: Fever, Chills, Other Eyes: No: Pain, Vision change, Conjunctivae inflammation, Eyelid inflammation, Other, Redness ENT: Nose congestion; No: Ear pain, Ear discharge, Nose pain, Nose discharge, Mouth pain, Mouth swelling, Throat pain, Throat swelling, Other Respiratory: Cough, Shortness of breath, SOB with excertion, Wheezing, Sputum; No: Hemoptysis, Pleuritic Pain Cardiovascular: Chest Pain, Orthopnea, Paroxysmal Noc. Dyspnea, Lt Headedness; No: Palpitations Gastrointestinal: No: Nausea, Vomiting, Abdominal Pain, Diarrhea, Constipation , Melena, Hematochezia, Other Genitourinary: No Dysuria, No Frequency, No Incontinence, No Hematuria, No Retention, No Other Musculoskeletal: back pain; No: other, neck pain, shoulder pain, arm pain, hand pain, leg pain, foot pain Skin: No: Rash, Lesions, Jaundice, Bruising, Other Neurological: Weakness, Incoordination Sepsis Event Evaluation Height, Weight, BMI Height: 5'4.00" Weight: 195lbs. 6.0oz. 88.173378kc; 33.5 BMI Method:Stated Exam Exam Vital Signs Date Time Temp Pulse Resp B/P (MAP) Pulse Ox O2 Delivery O2 Flow Rate FiO2 08/26/18 03:05 97 Nasal Cannula 3.00 08/26/18 02:50 99.2 97/43 (61) 08/26/18 02:01 92 Nasal Cannula 2.00 08/26/18 01:40 98.3 106/56 (73) 08/26/18 00:59 84 08/26/18 00:00 94 Nasal Cannula 3.00 08/25/18 23:50 84 98 28 08/25/18 23:37 82 08/25/18 23:30 98.4 78 20 100/81 (87) 94 Nasal Cannula 3.00 08/25/18 23:30 98.4 78 20 100/81 94 Nasal Cannula 3.00 08/25/18 23:20 97.2 84 28 113/65 (81) 98 Nasal Cannula 3.00 08/25/18 20:43 96 Nasal Cannula 2.00 08/25/18 20:34 93 Nasal Cannula 2.00 08/25/18 20:20 97.2 88 24 154/77 (102) 97 Nasal Cannula 2.00 08/25/18 20:20 97 Nasal Cannula 2.00 I & O 08/26/18 07:00 Intake Total 10 ml Balance 10 ml Height & Weight Height: 5'4.00" Weight: 195lbs. 6.0oz. 88.469679pu; 33.5 BMI Method:Stated General Appearance: Anxious, Chronically ill, Obese HEENT: PERRL/EOMI, Normal ENT Inspection, Pharynx Normal Neck: Full Range of Motion, Non Tender, Supple Respiratory: Chest Non Tender, Accessory Muscle Use, Decreased Breath Sounds Cardiovascular: Regular Rate, Rhythm, No Edema, No Gallop Capillary Refill: Less Than 3 Seconds Gastrointestinal: normal bowel sounds, non tender, soft, no organomegaly, no pulsatile mass Neurologic/Psychiatric: Alert, Oriented x3 Skin: Normal Color, Warm/Dry Lymphatic: No Adenopathy Results Lab Laboratory Tests 08/25/18 20:22 08/26/18 03:20 Assessment/Plan Assessment/Plan Acute on chronic respiratory failure with hypoxia COPDAE -C02 is 36 on admission -Solumedrol -SVNS Q4 -Check ABG Hyponatremia- volume depleted -Increase NS to 125, BNP 79 -Monitor Lung mass per CT scan with mediastinal lymphadenopathy - will need bronchoscopy with EBUS however she needs to be off plavix for 5days prior to procedure. Acute renal failure with nonanion gap metabolic acidosis -No ketones in urine, LA is normal -Increase NS -2 amps of Bicarb Hypotension -IVF -Monitor LAURA PAYNE DO Aug 26, 2018 05:12
[2018-08-26] MEDS: ACETAMINOPHEN 325 MG TABLET PO PRN ×2 (05:58→12:23)
--- NOTE | 2018-08-26 09:44 | History & Physical-Hospitalist ---
History of Present Illness HPI/Chief Complaint Chief Complaint: Altered mental status with shortness of breath HPI: This is a 78yoWF clinic patient of [facility] Dr. Huitron who is a current smoker and has a hx of HTN, who presented to the ER with shortness of breath and weakness found to have sodium level of 119 likely due to Hydrochlorothiazide dosing and exacerbation of COPD and UTI. Pt was placed on Rocephin empirically. Currently pt is drowsy ABG revealed no CO2 narcosis and family is at the bedside in which the granddaughter is a nurse at [employer] [facility] [employer] previously at [facility] and ICU. At this current time pt denies any pain. 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 At this current time Dr. Torrez ordered CT scan, likely will need a bronch and will be placed on 4th floor for IV antibiotics. We will reconcile all of her home meds and hold Hydrochlorothazide and maintain fluid restriction and normal saline IV fluid at 125 cc an hour. Source: patient, family, RN/MD, old records Date Seen 08/26/18 Time Seen by a Provider: 09:00 Attending Physician Sariah Murdock David F MD Referring Physician Date of Admission Aug 25, 2018 at 21:30 Home Medications & Allergies Home Medications Reviewed patient Home Medication Reconciliation performed by pharmacy medication reconciliations parts identification technician and/or nursing. Patients Allergies have been reviewed. Allergies Allergies Coded Allergies No Known Drug Allergies (Unverified07/10/14) Past Txajuix-Qgimim-Gpnbrp Hx Past Med/Social Hx: Reviewed Nursing Past Med/Soc Hx, Reviewed and Corrections made Patient Social History Marrital Status: single Employed/Student: retired Smoking Status: Current Everyday Smoker Recent Foreign Travel: No Contact w/other who traveled: No Recent Infectious Disease Expo: No Immunizations Up To Date Tetanus Booster (TDap): Unknown Pediatric: Yes Date of Pneumonia Vaccine: May 25, 2018 Date of Influenza Vaccine: May 25, 2018 Seasonal Allergies Seasonal Allergies: No Past Medical History Surgeries: Hysterectomy Cardiac: Hypertension Reproductive: No Sexually Transmitted Disease: No HIV/AIDS: No Hysterectomy HEENT: Macular Degeneration Hearing Impairment: Denies Adverse Reaction to Blood [place]: No Family History Reviewed Nursing Family Hx Cardiovascular disease 19 FATHER, Diabetes mellitus G8 SISTER, Onset:Unknown FH: COPD (chronic obstructive pulmonary disease) 19 FATHER, , Onset:Unknown FH: leukemia 19 MOTHER (leukemia), , Onset:Unknown Hypertension 19 FATHER, Myocardial infarction G8 BROTHER, , Onset:Unknown Review of Systems Constitutional: see HPI, weakness EENTM: no symptoms reported Respiratory: cough, dyspnea on exertion, short of breath, wheezing Cardiovascular: no symptoms reported Gastrointestinal: no symptoms reported Genitourinary: no symptoms reported Musculoskeletal: no symptoms reported Skin: no symptoms reported Psychiatric/Neurological: No Symptoms Reported All Other Systems Reviewed Negative Unless Noted: Yes Physical Exam Physical Exam Vital Signs Vital Signs - First Documented 08/25/18 08/25/18 20:20 23:50 Temp 97.2 Pulse 88 Resp 24 B/P (MAP) 154/77 (102) Pulse Ox 97 O2 Delivery Nasal Cannula O2 Flow Rate 2.00 FiO2 28 Capillary Refill : Less Than 3 Seconds Height, Weight, BMI Height: 5'4.00" Weight: 196lbs. 0.0oz. 88.799635uj; 33.5 BMI Method:Stated General Appearance: WD/WN, Anxious, Chronically ill, Mild Distress, Obese Eyes: Right Eye Normal Inspection, Right Eye PERRL HEENT: PERRL/EOMI, Normal ENT Inspection, Pharynx Normal, Moist Mucous Membranes Neck: Full Range of Motion, Normal Inspection, Non Tender Respiratory: Chest Non Tender, No Accessory Muscle Use, No Respiratory Distress , Crackles, Decreased Breath Sounds, Wheezing Cardiovascular: Regular Rate, Rhythm, No Edema, No Gallop, No JVD, No Murmur, Normal Peripheral Pulses Gastrointestinal: Normal Bowel Sounds, No Organomegaly, No Pulsatile Mass, Non Tender, Soft Back: Normal Inspection, No CVA Tenderness, No Vertebral Tenderness Extremity: Normal Capillary Refill, Normal Inspection, Normal Range of Motion, Non Tender, No Calf Tenderness, No Pedal Edema Neurologic/Psychiatric: Alert, Oriented x3, No Motor/Sensory Deficits, Normal Mood/Affect, Disoriented Skin: Normal Color, Warm/Dry Lymphatic: No Adenopathy Results Results/Procedures Labs Laboratory Tests 08/26/18 03:20 08/27/18 06:23 Patient resulted labs reviewed. Assessment/Plan Admission Diagnosis Assessment: Hypoxia Resp insuff UTI Confusion Hyponatremia Plan: IVF NS Fluid restriction Home med evaluation Admission Status: Inpatient Order (span 2 midnights) Reason for Inpatient Admission: Severe resp insuff will require ICU monitoring then O2 for 3 days Diagnosis/Problems Diagnosis/Problems (1) COPD exacerbation Status: Acute (2) Smoker Status: Chronic (3) Hypertension Status: Chronic Qualifiers: Hypertension type: essential hypertension Qualified Codes: I10 - Essential (primary) hypertension (4) UTI (urinary tract infection) Status: Acute Qualifiers: Urinary tract infection type: acute cystitis Hematuria presence: without hematuria Qualified Codes: N30.00 - Acute cystitis without hematuria (5) Altered mental status Status: Acute Qualifiers: Altered mental status type: delirium Qualified Codes: R41.0 - Disorientation, unspecified Clinical Quality Measures DVT/VTE Risk/Contraindication: Risk Factor Score Per Nursin RFS Level Per Nursing on Admit: 4+=Very High SARIAH MURDOCK DO Aug 26, 2018 09:44
[2018-08-26] MEDS ORDERED: diphenhydrAMINE 25 MG TAB (BENADRYL) PO PRN (10:00)
[2018-08-26] MEDS ORDERED: LOPERAMIDE 2 MG (IMODIUM) CAP PO PRN (10:00)
[2018-08-26] MEDS ORDERED: CALCIUM CARBONATE 500 MG (TUMS) TAB.CHEW PO PRN (10:00)
[2018-08-26] MEDS ORDERED: guaiFENesin/CODEINE (ROBITUSSIN AC) 10ML UDC PO PRN (10:00)
[2018-08-26] MEDS ORDERED: ACETAMINOPHEN 500 MG TAB (TYLENOL) PO PRN (10:00)
[2018-08-26] MEDS ORDERED: ONDANSETRON 4 MG (ZOFRAN) ORAL DISSOLVE TAB PO PRN (10:00)
[2018-08-26] MEDS ORDERED: DOCUSATE SODIUM 100 MG (COLACE) CAP PO PRN (10:00)
[2018-08-26] MEDS ORDERED: ONDANSETRON 4 MG/2 ML (SDV) Z0FRAN IVP PRN (10:00)
[2018-08-26] MEDS: ALPRAZolam 0.25 MG (XANAX) TAB PO PRN ×2 (10:18→12:30)
--- NOTE | 2018-08-26 10:46 | NUR ---
1005 PT TO ROOM 415 VIA W/C ACCOMPANIED BY BOWLING PIN SETTERS INSTALLER NU, REPORT RECEIVED AT BEDSIDE, PT ALERT AND ORIENTED ON 02 AT 3 LITERS PER NC, LUNG SOUNDS B/L POSTERIOR NOTED TO BE COURSE AND DIMINISHED WITH WHEEZES NOTED AT TIMES. LUNGS ANTERIORLY ALSO NOTED TO BE COURSE AND WHEEZES NOTED. IV INFUSING WITHOUT DIFFICULTY INTO RIGHT LOWER FOREARM. PT VOICES NO NEEDS AT THIS TIME, CALL LIGHT AND OTHER PERSONAL ITEMS WITHIN REACH, FAMILY AT BEDSIDE WILL CONTINUE TO MONITOR.
--- NOTE | 2018-08-26 11:51 | Diagnostic Imaging Report ---
PROCEDURE: CT chest without contrast. TECHNIQUE: Multiple contiguous axial images were obtained through the chest without the use of intravenous contrast. INDICATION: Shortness of breath. COMPARISON: There are no prior CT chest examinations available for comparison. FINDINGS: Along the periphery of the right lower lobe, there is a 1.3 x 1.1 cm noncalcified smoothly marginated parenchymal lung mass. Even in retrospect, this finding could not be identified on the chest exam performed on 08/25/2018. However, I do feel that this density was most likely present on the prior chest exam of 07/10/2014. This finding was essentially obscured by the overlying breast tissue. It may be slightly larger than on the prior exam, and the possibility that this is neoplastic in nature should certainly be considered. I would recommend that PET/CT be performed for further evaluation. There is a second much smaller 0.5 x 0.5 cm rounded density just inferior to the larger nodule. This could also be further evaluated by PET/CT. No other parenchymal lung mass is identified. There are alveolar/interstitial infiltrates involving both lower lobes. Most likely, these are due to pneumonia/atelectasis. These were difficult to appreciate on the prior exam as well. There is no pleural effusion identified. The upper lungs are generally clear. The heart size is mildly enlarged. There are coronary artery calcifications evident. The aorta is not abnormally dilated. There is no obvious mediastinal or hilar adenopathy. The thyroid gland where visualized is unremarkable. There is no definite mass visualized within either breast. The sections through the upper abdomen show cholelithiasis but no evidence for acute cholecystitis. The left kidney also appears to be atrophic. The bone windows are unremarkable for a fracture or for a destructive lesion. IMPRESSION: 1. There is bibasilar pneumonia/atelectasis. There is no acute cardiopulmonary abnormality identified otherwise. 2. The parenchymal masses along the periphery of the right lung base are of uncertain etiology. The possibility that these are neoplastic in nature should certainly be considered, however. Recommendations as above. 3. There is cholelithiasis without evidence for acute cholecystitis. 4. Left kidney is atrophic. 5. These results were discussed with Dr. Ismael Torrez. Dictated by: Dictated on workstation # [id number]
--- NOTE | 2018-08-26 14:27 | NUR ---
Pt is liste as Hindu but declines sacraments and did not feel like visiting.
--- NOTE | 2018-08-26 15:00 | NUR ---
REPORT RECEIVED FROM TIRSO FERRER. THIS RN WILL ASSUME PT CARE AT THIS TIME.
[2018-08-26] MEDS ORDERED: ATOR10TA PO (15:31)
[2018-08-26] MEDS ORDERED: CLOP75TA69 PO (15:31)
[2018-08-26] MEDS ORDERED: ASPI-983 PO (15:31)
[2018-08-26] MEDS ORDERED: ALBU6.7H8 INH (15:42)
--- NOTE | 2018-08-26 15:44 | NUR ---
HAD A LIST OF RECENTLY FILLED MEDICATIONS FAXED OVER FROM [facility]. I WENT OVER THAT LIST WITH THE PATIENT AND SHE VERIFIED HOW SHE TAKES THEM. SHE TAKES ASPIRIN 81MG DAILY OTC. [facility] FILLED: [id number] 2.5MG DAILY #30 08-11-18 LISINOPRIL HCTZ 20-25 DAILY #30 (TAKES AT HS) 08-11-18 ATORVASTATIN 10MG HS #30 08-11-18 PLAVIX 75MG DAILY #30 (TAKES AT HS) 08-11-18 METOPROLOL SUCCINATE 50MG DAILY #30 (TAKES AT HS) SHE ALSO STATES SHE USES AN INHALER NEEDED. SHE USES THE CHEAPER ONE BECAUSE SHE CAN NOT AFFORD THE MORE EXPENSIVE ONE. SHE DOES NOT KNOW THE NAMES OF THEM. [facility] VERIFIED THEY FILLED PROVENTIL 2 PUFFS Q4H PRN IN SEPTEMBER 2017 AND THAT WOULD BE THE CHEAPER INHALER ON HER PROFILE.
[2018-08-26] MEDS ORDERED: ceFAZolin INJECTION 0 MG ONE (22:09)
[2018-08-26] MEDS ORDERED: WATER (STERILE) FOR INJECTION 0 ML ONE (22:09)
[2018-08-26] MEDS ORDERED: WATER (STERILE) FOR INJECTION 10 ML ONE (22:11)
[2018-08-26] MEDS ORDERED: cefTRIAXone 1,000 MG IV (ROCEPHIN) VIAL ONE (22:11)
[2018-08-26] MEDS: MELATONIN 3 MG TABLET PO PRN (22:16)
[2018-08-26] MEDS ORDERED: cefTRIAXone 1,000 MG/SWFI 10 ML IV PUSH IV SCH ×2 (23:00)
[2018-08-27] MEDS: RT-ALBUTEROL/IPRATROPIUM 3 ML (DUONEB) VIAL INH SCH ×7 (02:17→23:32)
[2018-08-27 03:20] VITALS: BP 138/68
--- NOTE | 2018-08-27 03:45 | NUR ---
THIS RN CALLED DR. MAZARIEGOS IN REGARDS TO THE PT COMPLAIN OF CHEST TIGHTNESS THAT DOES NOT RADIATE AND IS RELIEVED BY SITTING UP. BLOOD PRESSURE: 138/68 AUTOMATIC, HEART RATE: 85 BPM, AND OXYGEN SATURATION: 96% ON 5L PER NC. ORDERS RECEIVED FOR AN EKG AND A TROPONIN LAB. WILL CONTINUE TO MONITOR.
[2018-08-27] MEDS: methylPREDNISolone 40 MG/ML (Solu-MEDROL) VIAL IV SCH ×4 (04:12→21:45)
[2018-08-27] MEDS: NS IV 1000 ML 1,000 ML IV SCH ×3 (04:12→23:58)
--- NOTE | 2018-08-27 06:53 | Pulmonary Progress Note ---
Subjective Time Seen by a Provider: 06:49 Subjective/Events-last exam PT complains of persistent SOB. Family at bedside with a lot of questions. I answered all questions and explained how pt will need close f/u as out patient once discharged. Sepsis Event Evaluation Height, Weight, BMI Height: 5'4.00" Weight: 202lbs. 7.0oz. 91.736564la; 33.5 BMI Method:Stated Focused Exam Lactate Level 08/25/18 20:22: Lactic Acid Level 1.91 Exam Exam Vital Signs Date Time Temp Pulse Resp B/P (MAP) Pulse Ox O2 Delivery O2 Flow Rate FiO2 08/27/18 04:00 Nasal Cannula 3.00 08/27/18 03:20 97.2 85 22 138/68 (91) 96 Nasal Cannula 5.00 08/27/18 02:18 93 Nasal Cannula 5.00 08/27/18 01:00 88 08/27/18 00:00 Nasal Cannula 3.00 08/26/18 23:30 99.0 83 24 120/53 (75) 94 Nasal Cannula 3.00 08/26/18 21:32 90 Nasal Cannula 2.00 08/26/18 21:00 Nasal Cannula 3.00 08/26/18 20:00 Nasal Cannula 3.00 08/26/18 19:36 97.6 69 18 107/71 (83) 94 Nasal Cannula 3.00 08/26/18 15:56 Nasal Cannula 3.00 08/26/18 15:52 98.1 77 18 129/66 (87) 95 Nasal Cannula 3.00 08/26/18 14:09 91 Nasal Cannula 2.00 08/26/18 13:00 95 08/26/18 12:45 93 Nasal Cannula 3.00 08/26/18 12:00 98.9 93 20 146/78 (100) 93 Nasal Cannula 3.00 08/26/18 09:39 94 Nasal Cannula 2.00 08/26/18 09:00 93 Nasal Cannula 3.00 08/26/18 08:15 78 08/26/18 08:00 93 Nasal Cannula 3.00 08/26/18 07:00 99.0 82 16 105/63 (77) 92 Nasal Cannula 3.00 I & O 08/27/18 07:00 Intake Total 2860 ml Output Total 700 ml Balance 2160 ml Height & Weight Height: 5'4.00" Weight: 202lbs. 7.0oz. 91.834722qs; 33.5 BMI Method:Stated General Appearance: Anxious, Chronically ill, Obese HEENT: PERRL/EOMI, Normal ENT Inspection, Pharynx Normal Neck: Full Range of Motion, Non Tender, Supple Respiratory: Chest Non Tender, Accessory Muscle Use, Decreased Breath Sounds Cardiovascular: Regular Rate, Rhythm, No Edema, No Gallop Capillary Refill: Less Than 3 Seconds Gastrointestinal: normal bowel sounds, non tender, soft, no organomegaly, no pulsatile mass Neurologic/Psychiatric: Alert, Oriented x3 Skin: Normal Color, Warm/Dry Lymphatic: No Adenopathy Results Lab Laboratory Tests 08/25/18 20:22 08/26/18 03:20 Assessment/Plan Assessment/Plan Acute on chronic respiratory failure with hypoxia COPDAE -C02 is 36 on admission -Solumedrol -SVNS Q4 - ABG - C02 is normal Hyponatremia- volume depleted -NS 125, BNP 79 -Monitor -check AM labs - Pending Lung mass per CT scan with mediastinal lymphadenopathy - will need bronchoscopy with EBUS however she needs to be off plavix for 5days prior to procedure. Acute renal failure with nonanion gap metabolic acidosis -No ketones in urine, LA is normal -Increase LAURA CASON DO Aug 27, 2018 06:53
[2018-08-27 07:07] LABS: BASOPHILS % (AUTO) 0 % (0-10); EOSINOPHILS % (AUTO) 0 % (0-10); HEMATOCRIT 33 % (35-52); HEMOGLOBIN 11.7 G/DL (11.5-16.0); LYMPHOCYTES # (AUTO) 0.8 X 10^3 (1.0-4.0); LYMPHOCYTES % (AUTO) 5 % (12-44); MEAN CORPUSCULAR HEMOGLOBIN 34 PG (25-34); MEAN CORPUSCULAR HGB CONC 35 G/DL (32-36); MEAN CORPUSCULAR VOLUME 97 FL (80-99); MONOCYTES # (AUTO) 0.7 X 10^3 (0.0-1.0); MONOCYTES % (AUTO) 4 % (0-12); NEUTROPHILS # (AUTO) 13.6 X 10^3 (1.8-7.8); NEUTROPHILS % (AUTO) 90 % (42-75); PLATELET COUNT 159 10^3/uL (130-400); RED CELL DISTRIBUTION WIDTH 14.8 % (10.0-14.5); WHITE BLOOD COUNT 15.1 10^3/uL (4.3-11.0)
[2018-08-27 07:30] LABS: CALCIUM 8.3 MG/DL (8.5-10.1); CREATININE SERUM 1.24 MG/DL (0.60-1.30); MAGNESIUM 1.7 MG/DL (1.8-2.4); PHOSPHORUS 2.3 MG/DL (2.3-4.7)
[2018-08-27 08:00] VITALS: BP 132/57
--- NOTE | 2018-08-27 09:08 | Diagnostic Imaging Report ---
INDICATION: Shortness of breath. COMPARISON: 08/25/2018. FINDINGS: Portable chest shows minimal infiltrate and/or atelectasis developing in the left lung base since previous exam. Right lung is clear. Heart is upper limits of normal. There is no pulmonary edema. No pneumothorax or pleural effusion. IMPRESSION: Development of discoid atelectasis and/or infiltrate in the left lung base since previous exam. Dictated by: Dictated on workstation # [id number]
--- NOTE | 2018-08-27 09:22 | Progress Note-Hospitalist ---
Subjective HPI/CC On Admission Date Seen by Provider: Aug 27, 2018 Time Seen by Provider: 09:30 Subjective/Events-last exam Pt had more shortness of breath so decreased IV fluid and gave Lasix of 20mg IV and consulting Dr. Burns. Chest x-ray shows a new infiltrate but unsure if that is really a new pneumonia or not Confer with Dr. Torrez Home meds were restarted but held a few due to acute illness Check echo Will check labs in the morning Sodium level 128 E. 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 are all nurses Review of Systems General: Fatigue Pulmonary: Dyspnea Neurological: Confusion Focused Exam Lactate Level 08/25/18 20:22: Lactic Acid Level 1.91 Objective Exam Vital Signs Vital Signs Date Time Temp Pulse Resp B/P (MAP) Pulse Ox O2 Delivery O2 Flow Rate FiO2 08/27/18 19:00 74 08/27/18 16:00 Nasal Cannula 6.00 08/27/18 15:33 96.7 22 127/58 (81) 97 08/25/18 23:50 28 Capillary Refill : Less Than 3 Seconds General Appearance: No Apparent Distress, Anxious, Chronically ill, Obese HEENT: PERRL/EOMI, Normal ENT Inspection, Pharynx Normal Neck: Full Range of Motion, Non Tender, Supple Respiratory: Chest Non Tender, Accessory Muscle Use, Decreased Breath Sounds, Wheezing Cardiovascular: Regular Rate, Rhythm, No Edema, No Gallop Neurologic/Psychiatric: Alert, Oriented x3 Skin: Normal Color, Warm/Dry Lymphatic: No Adenopathy Results/Procedures Lab Laboratory Tests 08/27/18 06:23 Patient resulted labs reviewed. Assessment/Plan Assessment and Plan Assess & Plan/Chief Complaint Assessment: AECOPD UTI Hyponatremia Weakness Smoker Infiltrate on CXR today Hypoxia Plan: Change abx to Zosyn Nebs O2 Dr Torrez is appreciated Diagnosis/Problems Diagnosis/Problems (1) COPD exacerbation Status: Acute (2) Hypertension Status: Chronic Qualifiers: Hypertension type: essential hypertension Qualified Codes: I10 - Essential (primary) hypertension (3) Altered mental status Status: Acute Qualifiers: Altered mental status type: delirium Qualified Codes: R41.0 - Disorientation, unspecified (4) UTI (urinary tract infection) Status: Acute Qualifiers: Urinary tract infection type: acute cystitis Hematuria presence: without hematuria Qualified Codes: N30.00 - Acute cystitis without hematuria (5) Hyponatremia Status: Acute (6) Smoker Status: Chronic Clinical Quality Measures DVT/VTE Risk/Contraindication: Risk Factor Score Per Nursin RFS Level Per Nursing on Admit: 4+=Very High SRIDEVI MURDOCK DO Aug 27, 2018 09:22
[2018-08-27] MEDS ORDERED: FUROSEMIDE 40 MG/4 ML INJ (LASIX) IVP NR (09:30)
[2018-08-27] MEDS ORDERED: PIPERACILLIN/TAZOBACTAM (BULK) 4.5 GM in NS (IVPB) 100 ML IV NR (09:35)
[2018-08-27] MEDS: ACETAMINOPHEN 325 MG TABLET PO PRN (10:24)
--- NOTE | 2018-08-27 11:18 | Consultation-Cardiology ---
HPI-Cardiology Cardiology Consultation: Date of Consultation 08/27/18 Time Seen by a Provider: 10:45 Date of Admission 08-25-18 Attending Physician Sariah Ceja DO Admitting Physician Duncan Hiutron MD Consulting Physician Dariel Burns MD HPI: Chief Complaint: Dyspnea Ms. Marshall is a 78 year old female in 415 admitted with increasing cough and dyspnea. She has previously seen Dr. Cash. She reports for the last week she has had increasing shortness of breath and chills along with a lose cough. She denies any c/o CP, palpitations, syncope, near syncope or LE swelling. She denies any n/v/d. Review of Systems-Cardiology Review of Systems Constitutional: chills, malaise Eyes: No vision change Ears/Nose/Throat: No epistaxis, No recent hearing loss, No ulcerations Respiratory: As described under HPI Cardiovascular: As described under HPI Gastrointestinal: No constipation, No diarrhea, No nausea, No vomiting Genitourinary: No dysuria, No hematuria Musculoskeletal: no symptoms reported Skin: No rash, No ulcerations Psychiatric/Neurological: No seizure, No focal weakness Hematologic: No bleeding abnormalities All Other Systems Reviewed Negative Unless Noted: Yes ASH-Scqfss-Wwowgw Hx Patient Social History Recent Foreign Travel: No Recent Infectious Disease Expo: No Hospitalization with Isolation: Denies Immunizations Up To Date Tetanus Booster (TDap): Unknown Date of Pneumonia Vaccine: May 25, 2018 Date of Influenza Vaccine: May 25, 2018 Past Medical History PMH As described under Assessment. Family Medical History Family Medical History: Reports family h/o CAD in her father and a brother. Family History: Cardiovascular disease 19 FATHER, Diabetes mellitus G8 SISTER, Onset:Unknown FH: COPD (chronic obstructive pulmonary disease) 19 FATHER, , Onset:Unknown FH: leukemia 19 MOTHER (leukemia), , Onset:Unknown Hypertension 19 FATHER, Myocardial infarction G8 BROTHER, , Onset:Unknown Allergies and Home Medications Allergies Coded Allergies: No Known Drug Allergies (Unverified , 07/10/14) Home Medications Albuterol Sulfate 6.7 Gm Hfa.aer.ad, 2 PUFF INH Q4H PRN for SHORTNESS OF BREATH, (Reported) LAST FILLED SEPTEMBER 2017 Amlodipine Besylate 2.5 Mg Tablet, 2.5 MG PO DAILY, (Reported) Aspirin 81 Mg Tablet.dr, 81 MG PO DAILY, (Reported) Atorvastatin Calcium 10 Mg Tablet, 10 MG PO HS, (Reported) Clopidogrel Bisulfate 75 Mg Tablet, 75 MG PO HS, (Reported) Lisinopril/Hydrochlorothiazide 1 Each Tablet, 1 TAB PO HS, (Reported) Metoprolol Succinate 50 Mg Tab.er.24h, 50 MG PO HS, (Reported) Patient Home Medication List Home Medication List Reviewed: Yes Physical Exam-Cardiology Physical Exam Vital Signs/I&O 08/31/18 08/31/18 08/31/18 08/31/18 00:10 01:00 02:55 03:45 Temp 97.5 96.1 Pulse 67 57 59 Resp 20 20 B/P (MAP) 166/66 (99) 153/73 (99) Pulse Ox 96 96 O2 Delivery High Flow N/C Nasal Cannula High Flow N/C O2 Flow Rate 4.00 4.00 4.00 08/31/18 08/31/18 07:00 08:00 Temp 97.8 Pulse 49 62 Resp 19 B/P (MAP) 159/72 (101) Pulse Ox 94 O2 Delivery High Flow N/C O2 Flow Rate 2.50 08/31/18 00:00 Intake Total 800 ml Output Total 200 ml Balance 600 ml Capillary Refill : Less Than 3 Seconds Constitutional: AAO x 3, well-developed, well-nourished HEENT: PERRL, hearing is well preserved, oral hygience is good Neck: carotid bruit, carotid pulses are 2 + bilaterally Respiratory: rhonchi (scattered), other (diminished lower lobes bilat) Cardiovascular: regular rate-rhythm; No JVD; S1 and S2, systolic murmur Gastrointestinal: No tender; soft, round, audible bowel sounds Extremities: no lower extremity edema bilateral Neurologic/Psychiatric: grossly intact, power is 5/5 both on sides Skin: No rash, No ulcerations Data Review Labs Laboratory Tests 08/31/18 05:15: White Blood Count 14.8H, Red Blood Count 3.62L, Hemoglobin 12.4, Hematocrit 36, Mean Corpuscular Volume 99, Mean Corpuscular Hemoglobin 34, Mean Corpuscular Hemoglobin Concent 34, Red Cell Distribution Width 15.3H, Platelet Count 253, Mean Platelet Volume 9.0, Neutrophils (%) (Auto) 70, Lymphocytes (%) (Auto) 21, Monocytes (%) (Auto) 8, Eosinophils (%) (Auto) 0, Basophils (%) (Auto) 0, Neutrophils # (Auto) 10.4H, Lymphocytes # (Auto) 3.1, Monocytes # (Auto) 1.2H, Eosinophils # (Auto) 0.0, Basophils # (Auto) 0.0, Sodium Level 134L, Potassium Level 3.8, Chloride Level 101, Carbon Dioxide Level 22, Anion Gap 11, Blood Urea Nitrogen 21H, Creatinine 1.32H, Estimat Glomerular Filtration Rate 39, BUN/ Creatinine Ratio 16, Glucose Level 93, Calcium Level 8.4L, Phosphorus Level 3.6 , Magnesium Level 2.3 Microbiology 08/25/18 Blood Culture - Preliminary, Resulted No growth 08/25/18 Gram Stain - Final, Complete 08/25/18 Sputum Culture - Final, Complete Usual upper respiratory anjana 08/25/18 Urine Culture - Final, Complete Escherichia coli Radiology NAME: TABATHA MARSHALL [facility] REC#: [id number] PT STATUS: ADM IN : 1940 PHYSICIAN: ISMAEL TORREZ DO ADMIT DATE: 08/25/18 Draft Date of Exam:08/27/18 CHEST 1 VIEW, AP/PA ONLY INDICATION: Shortness of breath. COMPARISON: 08/25/2018. FINDINGS: Portable chest shows minimal infiltrate and/or atelectasis developing in the left lung base since previous exam. Right lung is clear. Heart is upper limits of normal. There is no pulmonary edema. No pneumothorax or pleural effusion. IMPRESSION: Development of discoid atelectasis and/or infiltrate in the left lung base since previous exam. Dictated on workstation # [id number] Dict: 08/27/18 0851 Trans: 08/27/18 0907 [id number] Interpreted by: BABITA HODGES MD Electronically signed by: NAME: TABATHA MARSHALL [facility] REC#: [id number] PT STATUS: ADM IN : 1940 PHYSICIAN: ISMAEL TORREZ DO ADMIT DATE: 08/25/18 Signed Date of Exam: 08/26/18 CT CHEST WO PROCEDURE: CT chest without contrast. TECHNIQUE: Multiple contiguous axial images were obtained through the chest without the use of intravenous contrast. INDICATION: Shortness of breath. COMPARISON: There are no prior CT chest examinations available for comparison. FINDINGS: Along the periphery of the right lower lobe, there is a 1.3 x 1.1 cm noncalcified smoothly marginated parenchymal lung mass. Even in retrospect, this finding could not be identified on the chest exam performed on 08/25/2018. However, I do feel that this density was most likely present on the prior chest exam of 07/10/2014. This finding was essentially obscured by the overlying breast tissue. It may be slightly larger than on the prior exam, and the possibility that this is neoplastic in nature should certainly be considered. I would recommend that PET/CT be performed for further evaluation. There is a second much smaller 0.5 x 0.5 cm rounded density just inferior to the larger nodule. This could also be further evaluated by PET/CT. No other parenchymal lung mass is identified. There are alveolar/interstitial infiltrates involving both lower lobes. Most likely, these are due to pneumonia/atelectasis. These were difficult to appreciate on the prior exam as well. There is no pleural effusion identified. The upper lungs are generally clear. The heart size is mildly enlarged. There are coronary artery calcifications evident. The aorta is not abnormally dilated. There is no obvious mediastinal or hilar adenopathy. The thyroid gland where visualized is unremarkable. There is no definite mass visualized within either breast. The sections through the upper abdomen show cholelithiasis but no evidence for acute cholecystitis. The left kidney also appears to be atrophic. The bone windows are unremarkable for a fracture or for a destructive lesion. IMPRESSION: 1. There is bibasilar pneumonia/atelectasis. There is no acute cardiopulmonary abnormality identified otherwise. 2. The parenchymal masses along the periphery of the right lung base are of uncertain etiology. The possibility that these are neoplastic in nature should certainly be considered, however. Recommendations as above. 3. There is cholelithiasis without evidence for acute cholecystitis. 4. Left kidney is atrophic. 5. These results were discussed with Dr. Ismael Torrez. Dictated by: Dictated on workstation # [id number] Dict: 08/26/18 0855 Trans: 08/26/18 1623 Interpreted by: RICKEY JUAREZ MD Electronically signed by: RICKEY JUAREZ MD 08/26/18 [id number] A/P-Cardiology Assessment/Admission Diagnosis Dyspnea likely multi-factorial Pneumonia - management pre pulmonary services Lung mass seen on CT fo the chest of 08-26-18 - management per pulmonary services Acute on chronic exacerbation of COPD Echocardiogram of [address] Cash showed mod LVH. LVEF 60%. Calcified mitral valve with mild MR. Mild TR. Aortic sclerosis without stenosis. PASP 30mmHg. H/O TIA Carotid stenosis- carotid ultrasound showed moderate to severe stenosis in the proximal right internal carotid artery, no significant gradient across the left ICA, patient underwent MRA of the neck which was reported as 50 percent stenosis bilaterally [place] [address] Gonzalez Hypertension Hyperlipidemia Tobaccoism - states quit a week ago Discussion and Recomendations Multi-factorial dyspnea for reasons noted above We advise echocardiogram to eval structure and function Continue current medication regimen including Plavix (d/t known h/o carotid dz) Continue BB Pneumonia and COPD is being managed by pulmonary/medical services Further recs will be based on her hospital course We would like to thank medical services for this consult Clinical Quality Measures DVT/VTE Risk/Contraindication: Risk Factor Score Per Nursin RFS Level Per Nursing on Admit: 4+=Very High SHABBIR TAI Aug 27, 2018 11:18
[2018-08-27 12:00] VITALS: BP 135/60
--- NOTE | 2018-08-27 13:31 | NUR ---
Pt is [employer]. Oral And Maxillofacial Surgery provided prayer and Communion.
--- NOTE | 2018-08-27 13:51 | Physical Therapy Evaluation ---
PT Evaluation-General Medical Diagnosis Admission Date Aug 25, 2018 at 21:30 Medical Diagnosis: COPD Exacerbation, Hypoatremia Onset Date: Aug 25, 2018 Therapy Diagnosis Therapy Diagnosis: decreased mobility Height/Weight Height (Feet): 5 Height (Inches): 4.00 Weight (Pounds): 202 Weight (Ounces): 7.0 Precautions Precautions/Isolations: Standard Precautions Weight Bear Status Right Lower Extremity: Right Weight Bearing/Tolerated Left Lower Extremity: Left Weight Bearing/Tolerated Referral Physician: Dr. Ceja Reason for Referral: Evaluation/Treatment Medical History Pertinent Medical History: COPD, CVA, HTN, Smoking Current History Sent from [facility] to ER with SOB for 2 weeks Reviewed History: Yes Social History Home: Single Level Current Living Status: Alone Entry Into Home: Level Entry Assisted Apt Prior/Core FIM Prior Level of Function Therapy Code Descriptions/Definitions Functional [place] Measure: 0=Not Assessed/NA 4=Minimal Assistance 1=Total Assistance 5=Supervision or Setup 2=Maximal Assistance 6=Modified [place] 3=Moderate Assistance 7=Complete [place] Therapy Quality Codes: 6 Independent with activity with or without an assistive device 5 Patient requires set up or clean up by helper. Patient completes activity by themselves 4 Supervision or touching assist (CGA). [place] provide cues , steadying assist 3 The helper provides less than half the effort to complete the activity 2 The helper provides more than half the effort to complete the activity 1 Dependent. The helper does all the effort to complete an activity 7 Patient refused to complete or attempt activity 9 The patient did not perform the activity before the current illness or injury 88 Not attempted due to Medical conditions or safety concerns Functional Abilities and Goals: Independent: Patient completed the activities by him/herself, with or without an assistive device, with no assistance from a helper. Needed Some Help: Patient needed partial assistance from another person to complete activities. Dependent: A helper completed the activities for the patient. Unknown: Not Applicable: Bed Mobility: 7 Transfers (B,C,W/C) (FIM): 7 Gait: 7 Indoor Mobility (Ambulation): Independent Stairs: Not [place] Prior Devices Use: None PT Evaluation-Current Subjective Pt in bed with daughter in room and agrees to PT. Pain Numeric Pain Scale: 0-No Pain Location: No Pain Reported Pt/Family Goals Pt to return home Objective Patient Orientation: Person, Place, Situation, Normal For Age Attachments: Oxygen (5L), IV ROM/Strength ROM Lower Extremities WNL Strength Lower Extremities gross motor bilateral (4+/5) Integumentary/Posture Bowel Incontinence: No Bladder Incontinence: No Neuromuscular (Tone, Coordination, Reflexes) NT Sensory Vision: Functional Hearing: Functional Sensation Right Lower Extremit: Intact Sensation Left Lower Extremity: Intact Transfers Therapy Code Descriptions/Definitions Functional [place] Measure: 0=Not Assessed/NA 4=Minimal Assistance 1=Total Assistance 5=Supervision or Setup 2=Maximal Assistance 6=Modified [place] 3=Moderate Assistance 7=Complete [place] Transfers (B, C, W/C) (FIM): 4 Supine to/from Sit: 5 Sit to/from Stand: 4 Gait Mode of Locomotion: Walk Anticipated Mode of Locomotion: Walk Gait (FIM): 2 Distance (FIM): 3=567-58 ft Distance: 125' Gait Level of Assist: 4 Gait Persons Needed: 1 Gait Assistive Device: FWW Balance Sitting Static: Good Sitting Dynamic: Good Standing Static: Good Standing Dynamic: Good Assessment/Needs Pt was able to perform bed mobility with SBA. Pt performed sit<>stand transfer from EOB to FWW with CGA for safety. Pt amb with CGA 125' on 5L O2 with FWW. Pt returned to room transferred to recliner and then requested to use restroom. Daughter assisted pt to restroom and PT made sure pt was able to transfer safely. Pt is in restroom with daughter. PT to increase activity as pt is able to tolerate. Rehab Potential: Fair Post Rehab Potential-Barriers: co-morbidities, lifestyle habits PT Short Term Goals Short Term Goals Time Frame: Sep 03, 2018 Transfers (B,C,W/C) (FIM): 6 Gait (FIM): 5 Distance (FIM): 3=150 ft Gait Distance Comment: 150' Gait Level of Assist: 5 Gait Assistive Device: FWW PT Plan Problem List Problem List: Activity Tolerance, Functional Strength, Safety, Balance, Gait, Transfer, Bed Mobility, ROM Treatment/Plan Treatment Plan: Continue Plan of Care Treatment Plan: Bed Mobility, Education, Functional Activity [place], Functional Strength, Gait, Safety, Therapeutic Exercise, Transfers Treatment Duration: Sep 03, 2018 Frequency: 6 times per week Estimated Hrs Per Day: .25 hour per day Patient and/or Family Agrees t: Yes Safety Risks/Education Patient Education: Gait Training, Transfer Techniques, Correct Positioning, Safety Issues Teaching Recipient: Patient, Family Discharge Recommendations Therapy D/C Recommendations: Acute Rehab, Home w/ Family Support, Group Home (TCU/NH) Time/GCodes Time In: 1248 Time Out: 1302 Total Billed Treatment Time: 14 Total Billed Treatment 1 visit EVM 14 min KIM BALDERRAMA PT Aug 27, 2018 13:51
--- NOTE | 2018-08-27 14:35 | Occupational Therapy Eval ---
OT Evaluation-General/PLF Medical Diagnosis Admission Date Aug 25, 2018 at 21:30 Medical Diagnosis: COPD Exacerbation, Hyponatremia Onset Date: Aug 25, 2018 Therapy Diagnosis Therapy Diagnosis: decreased self care skills Height/Weight Height (Feet): 5 Height (Inches): 4.00 Weight (Pounds): 202 Weight (Ounces): 7.0 Precautions Precautions/Isolations: Standard Precautions Safety Interventions: Notify Family Referral Physician: Dr. Ceja Medical History Pertinent Medical History: COPD, CVA, HTN, Macular Degenertion, Smoking Reviewed History: Yes Social History Home: Single Level Current Living Status: Alone Entry Into Home: Level Entry ADL-Prior Level of Function Therapy Code Descriptions/Definitions Functional [place] Measure: 0=Not Assessed/NA 4=Minimal Assistance 1=Total Assistance 5=Supervision or Setup 2=Maximal Assistance 6=Modified [place] 3=Moderate Assistance 7=Complete [place] Therapy Quality Codes: 6 Independent with activity with or without an assistive device 5 Patient requires set up or clean up by helper. Patient completes activity by themselves 4 Supervision or touching assist (CGA). [place] provide cues , steadying assist 3 The helper provides less than half the effort to complete the activity 2 The helper provides more than half the effort to complete the activity 1 Dependent. The helper does all the effort to complete an activity 7 Patient refused to complete or attempt activity 9 The patient did not perform the activity before the current illness or injury 88 Not attempted due to Medical conditions or safety concerns Functional Abilities and Goals: Independent: Patient completed the activities by him/herself, with or without an assistive device, with no assistance from a helper. Needed Some Help: Patient needed partial assistance from another person to complete activities. Dependent: A helper completed the activities for the patient. Unknown: Not Applicable: ADL PLOF Comments Pt reports being independent prior to admission. Does not use any assistive devices. Self Care: Independent DME/Equipment: Grab Bars, Tub/Shower Drive Self: Yes OT Current Status Subjective Pt sitting in chair, agrees to therapy. Mental Status/Objective Patient Orientation: Person, Place, Situation Attachments: IV, Oxygen Current Glasses/Contacts: Yes (reading) Upper Extremity ROM Grossly WFL Upper Extremity Strength Grossly 4/5 ADL-Treatment ADL-Current Pt participated in UE assessment while seated. Pt states she is able to feed herself without assist. Pt states she has been getting up to restroom with minimal assist. Pt sit to stand with CGA for balance. Pt requests to get into bed. Transfer to EOB with CGA for safety and assist to manage O2 and IV. Sit to supine with SBA. Pt resting in bed with needs met after session, daughter present. Therapy Code Descriptions/Definitions Functional [place] Measure: 0=Not Assessed/NA 4=Minimal Assistance 1=Total Assistance 5=Supervision or Setup 2=Maximal Assistance 6=Modified [place] 3=Moderate Assistance 7=Complete [place] Therapy Quality Codes: 6 Independent with activity with or without an assistive device 5 Patient requires set up or clean up by helper. Patient completes activity by themselves 4 Supervision or touching assist (CGA). [place] provide cues , steadying assist 3 The helper provides less than half the effort to complete the activity 2 The helper provides more than half the effort to complete the activity 1 Dependent. The helper does all the effort to complete an activity 7 Patient refused to complete or attempt activity 9 The patient did not perform the activity before the current illness or injury 88 Not attempted due to Medical conditions or safety concerns Eating (FIM): 6 Transfers (B, C, W/C) (FIM): 4 Education OT Patient Education: Rehab process Teaching Recipient: Patient Teaching Methods: Discussion Response to Teaching: Verbalize Understanding OT Short Term Goals Short Term Goals Transfers (B,C,W/C) (FIM): 6 1=Demonstrate adherence to instructed precautions during ADL tasks. 2=Patient will verbalize/demonstrate understanding of assistive devices/ modifications for ADL. 3=Patient will improve strength/tolerance for activity to enable patient to perform ADL's. OT Social Media Assistant Goals Social Media Assistant Goals Time Frame: Sep 04, 2018 Grooming(FIM): 6 Bathing(FIM): 5 Upper Body Dressing(FIM): 6 Lower Body Dressing(FIM): 6 Toileting(FIM): 6 Toilet/Commode Transfer(FIM): 6 Additional Goals: 1-Demonstrate ADL Tasks, 2-Verbalize Understanding, 3- ImproveStrength/[place] 1=Demonstrate adherence to instructed precautions during ADL tasks. 2=Patient will verbalize/demonstrate understanding of assistive devices/ modifications for ADL. 3=Patient will improve strength/tolerance for activity to enable patient to perform ADL's. OT Education/Plan Problem List/Assessment Assessment: Decreased Activ Tolerance, Decreased UE Strength, Dependent Transfers, Impaired Self-Care Skills Pt demonstrates decreased ADL functioning, strength, and activity tolerance. Pt to benefit from skilled OT intervention for ADL training, transfers, and strengthening to increase level of independence and allow safe discharge home. Discharge Recommendations Plan/Recommendations: Continue POC Treatment Plan/Plan of Care Treatment,Training & Education: Yes Patient would benefit from OT for education, treatment and training to promote independence in ADL's, mobility, safety and/or upper extremity function for ADL' s. Plan of Care: ADL Retraining, Functional Mobility, UE Funct Exercise/Act Treatment Duration: Sep 04, 2018 Frequency: 5 times per week Estimated Hrs Per Day: .25 hour per day Rehab Potential: Fair Time/GCodes Start Time: 13:31 Stop Time: 13:42 Total Time Billed (hr/min): 11 Billed Treatment Time 1, visit, LOLA(11minutes) JOEL MOREIRA OT Aug 27, 2018 14:35
--- NOTE | 2018-08-27 14:59 | NUR ---
Inpatient rehab evaluation Received order to evaluate patient for admission to the inpatient rehab unit. Patient is currently on 6L oxygen via nasal cannula. Patient did participate with PT and OT for approximately 25 minutes today. Will continue to follow to determine if patient is able to tolerate 3 hours of therapy while maintaining oxygen saturation. Thank you for the referral.
[2018-08-27 15:33] VITALS: BP 127/58
[2018-08-27] MEDS: PIPERACILLIN/TAZOBACTAM (BULK) 4.5 GM in NS (IVPB) 100 ML IV SCH ×2 (16:34→23:58)
--- NOTE | 2018-08-27 17:50 | Consultation-Cardiology ---
HPI-Cardiology Cardiology Consultation: Date of Consultation 08/27/18 Time Seen by a Provider: 17:50 Date of Admission Attending Physician Sariah Ceja DO Admitting Physician Duncan Huitron MD Consulting Physician SHAQ HUSSEIN MD, MA, FACP, FACC, [facility] [place], CCDS Physician requesting consult: Dr Ceja HPI: Chief Complaint: CC: Shortness of breath HPI Ms. Chavis is a 78 year old female in [facility] admitted with increasing cough and dyspnea. She has previously seen Dr. Cash. She reports for the last week she has had increasing shortness of breath and chills along with a lose cough. She denies any c/o CP, palpitations, syncope, near syncope or LE swelling. She denies any n/v/d. Review of Systems-Cardiology Review of Systems Constitutional: chills, malaise Eyes: No vision change Ears/Nose/Throat: No epistaxis, No recent hearing loss, No ulcerations Respiratory: As described under HPI Cardiovascular: As described under HPI Gastrointestinal: No constipation, No diarrhea, No nausea, No vomiting Genitourinary: No dysuria, No hematuria Musculoskeletal: no symptoms reported Skin: No rash, No ulcerations Psychiatric/Neurological: No seizure, No focal weakness Hematologic: No bleeding abnormalities All Other Systems Reviewed Negative Unless Noted: Yes OBD-Ubgbue-Knswgk Hx Patient Social History Recent Foreign Travel: No Recent Infectious Disease Expo: No Hospitalization with Isolation: Denies Immunizations Up To Date Tetanus Booster (TDap): Unknown Date of Pneumonia Vaccine: May 25, 2018 Date of Influenza Vaccine: May 25, 2018 Past Medical History PMH As described under Assessment. Family Medical History Family Medical History: Reports family h/o CAD in her father and a brother. Family History: Cardiovascular disease 19 FATHER, Diabetes mellitus G8 SISTER, Onset:Unknown FH: COPD (chronic obstructive pulmonary disease) 19 FATHER, , Onset:Unknown FH: leukemia 19 MOTHER (leukemia), , Onset:Unknown Hypertension 19 FATHER, Myocardial infarction G8 BROTHER, , Onset:Unknown Allergies and Home Medications Allergies Coded Allergies: No Known Drug Allergies (Unverified , 07/10/14) Home Medications Albuterol Sulfate 6.7 Gm Hfa.aer.ad, 2 PUFF INH Q4H PRN for SHORTNESS OF BREATH, (Reported) LAST FILLED SEPTEMBER 2017 Amlodipine Besylate 2.5 Mg Tablet, 2.5 MG PO DAILY, (Reported) Aspirin 81 Mg Tablet.dr, 81 MG PO DAILY, (Reported) Atorvastatin Calcium 10 Mg Tablet, 10 MG PO HS, (Reported) Clopidogrel Bisulfate 75 Mg Tablet, 75 MG PO HS, (Reported) Lisinopril/Hydrochlorothiazide 1 Each Tablet, 1 TAB PO HS, (Reported) Metoprolol Succinate 50 Mg Tab.er.24h, 50 MG PO HS, (Reported) Patient Home Medication List Home Medication List Reviewed: Yes Physical Exam-Cardiology Physical Exam Vital Signs/I&O 08/27/18 08/27/18 08/27/18 08/27/18 07:00 07:08 08:00 08:00 Temp 96.8 Pulse 79 87 Resp 18 B/P (MAP) 132/57 (82) Pulse Ox 93 95 O2 Delivery Nasal Cannula Nasal Cannula Nasal Cannula O2 Flow Rate 6.00 3.00 6.00 08/27/18 08/27/18 08/27/18 08/27/18 09:00 12:00 12:00 13:00 Temp 97.7 Pulse 75 74 Resp 18 B/P (MAP) 135/60 (85) Pulse Ox 96 O2 Delivery Nasal Cannula Nasal Cannula Nasal Cannula O2 Flow Rate 6.00 6.00 3.00 08/27/18 08/27/18 08/27/18 13:10 15:33 16:00 Temp 96.7 Pulse 79 Resp 22 B/P (MAP) 127/58 (81) Pulse Ox 93 97 O2 Delivery Nasal Cannula High Flow N/C Nasal Cannula O2 Flow Rate 6.00 6.00 6.00 08/27/18 00:00 Intake Total 1630 ml Output Total 250 ml Balance 1380 ml Capillary Refill : Less Than 3 Seconds Constitutional: AAO x 3, well-developed, well-nourished HEENT: PERRL, hearing is well preserved, oral hygience is good Neck: carotid bruit, carotid pulses are 2 + bilaterally Respiratory: rhonchi (scattered), other (diminished lower lobes bilat) Cardiovascular: regular rate-rhythm; No JVD; S1 and S2, systolic murmur Gastrointestinal: No tender; soft, round, audible bowel sounds Extremities: no lower extremity edema bilateral Neurologic/Psychiatric: grossly intact, power is 5/5 both on sides Skin: No rash, No ulcerations Data Review Labs Laboratory Tests 08/27/18 06:23: White Blood Count 15.1H, Red Blood Count 3.40L, Hemoglobin 11.7, Hematocrit 33L , Mean Corpuscular Volume 97, Mean Corpuscular Hemoglobin 34, Mean Corpuscular Hemoglobin Concent 35, Red Cell Distribution Width 14.8H, Platelet Count 159, Mean Platelet Volume 10.0, Neutrophils (%) (Auto) 90H, Lymphocytes (%) (Auto) 5L , Monocytes (%) (Auto) 4, Eosinophils (%) (Auto) 0, Basophils (%) (Auto) 0, Neutrophils # (Auto) 13.6H, Lymphocytes # (Auto) 0.8L, Monocytes # (Auto) 0.7, Eosinophils # (Auto) 0.0, Basophils # (Auto) 0.0, Sodium Level 128L, Potassium Level 4.0, Chloride Level 97L, Carbon Dioxide Level 20L, Anion Gap 11, Blood Urea Nitrogen 18, Creatinine 1.24, Estimat Glomerular Filtration Rate 42, BUN/ Creatinine Ratio 15, Glucose Level 186H, Calcium Level 8.3L, Phosphorus Level 2.3, Magnesium Level 1.7L, Troponin I 0.049H, B-Type Natriuretic Peptide 778.7H Microbiology 08/25/18 Blood Culture - Preliminary, Resulted No growth 08/25/18 Gram Stain - Final, Resulted 08/25/18 Sputum Culture - Preliminary, Resulted Usual upper respiratory anjana 08/25/18 Urine Culture - Final, Complete Escherichia coli A/P-Cardiology Assessment/Admission Diagnosis Dyspnea likely multi-factorial Pneumonia - management pre pulmonary services Lung mass seen on CT chest of 08-26-18 - management per pulmonary services Acute on chronic exacerbation of COPD Echo of 08/27/18: LVEF 60-65%, grade 1 guy dysfunction, PASP 25 mmHg H/O TIA Carotid stenosis- reported to have 50% bilat ICA stenoses on MRA of 2014 Hypertension Hyperlipidemia Tobaccoism - states quit a week ago Discussion and Recomendations * I spoke with her and her fam and answered CV-related questions * Continue current medication regimen including Plavix (d/t known h/o carotid dz ) * Continue BB * Pneumonia and COPD is being managed by pulmonary/medical services * Monitor labs Clinical Quality Measures DVT/VTE Risk/Contraindication: Risk Factor Score Per Nursin RFS Level Per Nursing on Admit: 4+=Very High KEENAN,ALI MD FACP FAC CCDS Aug 27, 2018 17:50
[2018-08-27] MEDS ORDERED: CLOPIDOGREL 75 MG (PLAVIX) TABLET PO SCH (21:00)
[2018-08-27 21:41] VITALS: BP 142/65
[2018-08-27] MEDS: MELATONIN 3 MG TABLET PO PRN (21:45)
[2018-08-27] MEDS: CLOPIDOGREL 75 MG (PLAVIX) TABLET PO SCH (21:45)
[2018-08-27] MEDS: meTOproloL SUCCINATE 50 MG (TOPROL XL) TAB PO SCH (21:45)
[2018-08-27 23:53] VITALS: BP 133/59
[2018-08-28] MEDS: RT-ALBUTEROL/IPRATROPIUM 3 ML (DUONEB) VIAL INH SCH ×5 (01:36→19:08)
[2018-08-28] MEDS: ALPRAZolam 0.25 MG (XANAX) TAB PO PRN ×2 (02:08→15:23)
[2018-08-28] MEDS: methylPREDNISolone 40 MG/ML (Solu-MEDROL) VIAL IV SCH (02:56)
[2018-08-28 04:13] VITALS: BP 149/65
[2018-08-28 06:18] LABS: BASOPHILS % (AUTO) 0 % (0-10); EOSINOPHILS % (AUTO) 0 % (0-10); HEMATOCRIT 33 % (35-52); HEMOGLOBIN 11.3 G/DL (11.5-16.0); LYMPHOCYTES # (AUTO) 0.9 X 10^3 (1.0-4.0); LYMPHOCYTES % (AUTO) 7 % (12-44); MEAN CORPUSCULAR HEMOGLOBIN 34 PG (25-34); MEAN CORPUSCULAR HGB CONC 35 G/DL (32-36); MEAN CORPUSCULAR VOLUME 99 FL (80-99); MEAN PLATELET VOLUME 9.6 FL (7.4-10.4); MONOCYTES # (AUTO) 0.6 X 10^3 (0.0-1.0); MONOCYTES % (AUTO) 4 % (0-12); NEUTROPHILS # (AUTO) 12.8 X 10^3 (1.8-7.8); NEUTROPHILS % (AUTO) 89 % (42-75); PLATELET COUNT 184 10^3/uL (130-400); RED CELL DISTRIBUTION WIDTH 15.2 % (10.0-14.5); WHITE BLOOD COUNT 14.3 10^3/uL (4.3-11.0)
[2018-08-28 06:39] LABS: CALCIUM 8.3 MG/DL (8.5-10.1); CREATININE SERUM 1.29 MG/DL (0.60-1.30); MAGNESIUM 1.6 MG/DL (1.8-2.4); PHOSPHORUS 2.6 MG/DL (2.3-4.7); POTASSIUM 4.1 MMOL/L (3.6-5.0)
--- NOTE | 2018-08-28 06:54 | Pulmonary Progress Note ---
Subjective Time Seen by a Provider: 06:53 Subjective/Events-last exam SOB and pt is still requiring a lot of oxygen Sepsis Event Evaluation Height, Weight, BMI Height: 5'4.00" Weight: 202lbs. 7.0oz. 91.218859iv; 33.5 BMI Method:Stated Focused Exam Lactate Level 08/25/18 20:22: Lactic Acid Level 1.91 Exam Exam Vital Signs Date Time Temp Pulse Resp B/P (MAP) Pulse Ox O2 Delivery O2 Flow Rate FiO2 08/28/18 04:13 High Flow N/C 6.00 08/28/18 04:13 97.0 88 22 149/65 (93) 97 High Flow N/C 6.00 08/28/18 01:36 95 Nasal Cannula 6.00 08/28/18 01:00 106 08/28/18 00:00 High Flow N/C 6.00 08/27/18 23:53 98.1 90 20 133/59 (83) 96 Nasal Cannula 6.00 08/27/18 23:19 93 Nasal Cannula 6.00 08/27/18 21:41 98.6 78 21 142/65 (90) 96 Nasal Cannula 6.00 08/27/18 21:00 High Flow N/C 6.00 08/27/18 21:00 High Flow N/C 6.00 08/27/18 19:08 93 Nasal Cannula 6.00 08/27/18 19:00 74 08/27/18 16:00 Nasal Cannula 6.00 08/27/18 15:33 96.7 79 22 127/58 (81) 97 High Flow N/C 6.00 08/27/18 13:10 93 Nasal Cannula 6.00 08/27/18 13:00 74 08/27/18 12:00 97.7 75 18 135/60 (85) 96 Nasal Cannula 3.00 08/27/18 12:00 Nasal Cannula 6.00 08/27/18 09:00 Nasal Cannula 6.00 08/27/18 08:00 Nasal Cannula 6.00 08/27/18 08:00 96.8 87 18 132/57 (82) 95 Nasal Cannula 3.00 08/27/18 07:08 93 Nasal Cannula 6.00 08/27/18 07:00 79 I & O 08/28/18 07:00 Intake Total 2220 ml Output Total 1050 ml Balance 1170 ml Height & Weight Height: 5'4.00" Weight: 202lbs. 7.0oz. 91.049158hj; 33.5 BMI Method:Stated General Appearance: Anxious, Chronically ill, Obese HEENT: PERRL/EOMI, Normal ENT Inspection, Pharynx Normal Neck: Full Range of Motion, Non Tender, Supple Respiratory: Chest Non Tender, Accessory Muscle Use, Decreased Breath Sounds Cardiovascular: Regular Rate, Rhythm, No Edema, No Gallop Capillary Refill: Less Than 3 Seconds Gastrointestinal: normal bowel sounds, non tender, soft, no organomegaly, no pulsatile mass Extremity: Normal Capillary Refill, Normal Inspection, Normal Range of Motion, Non Tender, No Calf Tenderness, No Pedal Edema Neurologic/Psychiatric: Alert, Oriented x3 Skin: Normal Color, Warm/Dry Lymphatic: No Adenopathy Results Lab Laboratory Tests 08/27/18 06:23 08/28/18 05:58 Assessment/Plan Assessment/Plan Acute on chronic respiratory failure with hypoxia COPDAE -C02 is 36 on admission -Solumedrol - change to prednisone taper -SVNS Q4 -Give 40mg of lasix and decrease IVF Hyponatremia- volume depleted -NS 125, BNP 79 -Monitor -check AM labs - Pending Lung mass per CT scan with mediastinal lymphadenopathy - will need bronchoscopy with EBUS however she needs to be off plavix for 5days prior to procedure. Acute renal failure with nonanion gap metabolic acidosis -No ketones in urine, LA is normal -Increase NS Atelectasis -Increase activity -IS LAURA PAYNE DO Aug 28, 2018 06:54
[2018-08-28] MEDS ORDERED: FUROSEMIDE 40 MG/4 ML INJ (LASIX) IVP ONE (07:00)
[2018-08-28] MEDS ORDERED: KCL 10 MEQ TAB (MICRO K) PO ONE (07:00)
[2018-08-28 07:28] VITALS: BP 147/64
[2018-08-28] MEDS: predniSONE 10 MG TAB PO SCH (08:49)
[2018-08-28] MEDS: PIPERACILLIN/TAZOBACTAM (BULK) 4.5 GM in NS (IVPB) 100 ML IV SCH ×2 (08:50→16:08)
[2018-08-28] MEDS: ASPIRIN E.C. 81 MG (ECOTRIN) TAB PO SCH (08:50)
[2018-08-28] MEDS: MAGNESIUM 1 GM/100 ML IVPB 100 ML IV SCH ×3 (08:59→12:42)
[2018-08-28] MEDS ORDERED: ASPIRIN E.C. 81 MG (ECOTRIN) TAB PO SCH (09:00)
--- NOTE | 2018-08-28 11:17 | Physical Therapy Daily Note ---
PT Daily Note-Current Subjective Patient sitting EOB pre tx, agrees to PT, has no complaints of pain. Appearance Patient sitting EOB post tx with nurse call, phone, tray, family in room. Mental Status Patient Orientation: Person, Place, Situation Attachments: Oxygen, IV Transfers Therapy Code Descriptions/Definitions Functional Upson Measure: 0=Not Assessed/NA 4=Minimal Assistance 1=Total Assistance 5=Supervision or Setup 2=Maximal Assistance 6=Modified Upson 3=Moderate Assistance 7=Complete Upson Therapy Quality Codes: 6 Independent with activity with or without an assistive device 5 Patient requires set up or clean up by helper. Patient completes activity by themselves 4 Supervision or touching assist (CGA). Lenore provide cues , steadying assist 3 The helper provides less than half the effort to complete the activity 2 The helper provides more than half the effort to complete the activity 1 Dependent. The helper does all the effort to complete an activity 7 Patient refused to complete or attempt activity 9 The patient did not perform the activity before the current illness or injury 88 Not attempted due to Medical conditions or safety concerns Transfers (B, C, W/C) (FIM): 5 Sit to/from Stand: 5 Bed to/from Chair: 5 Weight Bearing Right Lower Extremity: Right Weight Bearing/Tolerated Left Lower Extremity: Left Weight Bearing/Tolerated Gait Training Gait (FIM): 5 Distance: 150' Gait Level of Assist: 5 Gait Persons Needed: 1 Gait Assistive Device: FWW Patient has steady ambulation but gets SOB, needs cues for purse lip breathing, is SOB after ambulation but recovers with deep breathing. Exercises Seated Therapy Exercises: Ankle pumps, Long arc quads Seated Reps: 15 Treatments transfers, ambulation, functional strengthening Assessment Current Status: Fair Progress improving transfers PT Short Term Goals Short Term Goals Time Frame: Sep 03, 2018 Transfers (B,C,W/C) (FIM): 6 Gait (FIM): 5 Distance (FIM): 3=150 ft Gait Distance Comment: 150' Gait Level of Assist: 5 Gait Assistive Device: FWW PT Plan Problem List Problem List: Activity Tolerance, Functional Strength, Safety, Balance, Gait, Transfer, Bed Mobility Treatment/Plan Treatment Plan: Continue Plan of Care Treatment Plan: Bed Mobility, Education, Functional Activity Wallace, Functional Strength, Gait, Safety, Therapeutic Exercise, Transfers Treatment Duration: Sep 03, 2018 Frequency: 6 times per week Estimated Hrs Per Day: .25 hour per day Patient and/or Family Agrees t: Yes Safety Risks/Education Patient Education: Gait Training, Transfer Techniques, Correct Positioning, Safety Issues Teaching Recipient: Patient Teaching Methods: Demonstration, Discussion Response to Teaching: Reinforcement Needed Time/GCodes Time In: 1058 Time Out: 1111 Total Billed Treatment Time: 13 Total Billed Treatment 1 visit GT 13' SHARLENE CONNOR PT Aug 28, 2018 11:17
[2018-08-28 11:42] VITALS: BP 118/59
--- NOTE | 2018-08-28 12:43 | Progress Note-Hospitalist ---
Subjective HPI/CC On Admission Date Seen by Provider: Aug 28, 2018 Time Seen by Provider: 11:30 Chief Complaint: Altered mental status with shortness of breath HPI: This is a 78yoWF clinic patient of [facility] Dr. Huitron who is a current smoker and has a hx of HTN, who presented to the ER with shortness of breath and weakness found to have sodium level of 119 likely due to Hydrochlorothiazide dosing and exacerbation of COPD and UTI. Pt was placed on Rocephin empirically. Currently pt is drowsy ABG revealed no CO2 narcosis and family is at the bedside in which the granddaughter is a nurse at [employer] previously at [place] [facility] and ICU. At this current time pt denies any pain. 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 At this current time Dr. Torrez ordered CT scan, likely will need a bronch and will be placed on 4th floor for IV antibiotics. We will reconcile all of her home meds and hold Hydrochlorothazide and maintain fluid restriction and normal saline IV fluid at 125 cc an hour. Subjective/Events-last exam Patient doing better Was walking with PT Wearing O2 Overall feels like she is breathing better Smoking cessation counseled once again Sodium level increased HLIVF to avoid volume overload Nebs tolerated Zosyn abx tolerated Review of Systems General: Fatigue Pulmonary: Dyspnea Focused Exam Lactate Level 08/25/18 20:22: Lactic Acid Level 1.91 Objective Exam Vital Signs Vital Signs Date Time Temp Pulse Resp B/P (MAP) Pulse Ox O2 Delivery O2 Flow Rate FiO2 08/28/18 14:47 95 Nasal Cannula 6.00 08/28/18 13:00 72 08/28/18 11:42 97.4 20 118/59 (78) 08/25/18 23:50 28 Capillary Refill : Less Than 3 Seconds General Appearance: No Apparent Distress, Anxious, Chronically ill, Obese HEENT: PERRL/EOMI, Normal ENT Inspection, Pharynx Normal Neck: Full Range of Motion, Non Tender, Supple Respiratory: Chest Non Tender, Accessory Muscle Use, Crackles, Decreased Breath Sounds, Wheezing Cardiovascular: Regular Rate, Rhythm, No Edema, No Gallop Gastrointestinal: Normal Bowel Sounds, No Organomegaly, No Pulsatile Mass, Non Tender, Soft Back: Normal Inspection, No CVA Tenderness, No Vertebral Tenderness Extremity: Normal Capillary Refill, Normal Inspection, Normal Range of Motion, Non Tender, No Calf Tenderness, No Pedal Edema Neurologic/Psychiatric: Alert, Oriented x3, No Motor/Sensory Deficits, Normal Mood/Affect, 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 Assessment/Plan Assessment and Plan Assess & Plan/Chief Complaint Assessment: AECOPD UTI Hyponatremia improved while holding HCTZ Weakness Smoker Infiltrate on CXR Hypoxia Plan: Changed abx to Zosyn Nebs O2 Dr Torrez is appreciated PT/OT HLIVF Check labs in am Diagnosis/Problems Diagnosis/Problems (1) COPD exacerbation Status: Acute (2) Hypertension Status: Chronic Qualifiers: Hypertension type: essential hypertension Qualified Codes: I10 - Essential (primary) hypertension (3) Altered mental status Status: Acute Qualifiers: Altered mental status type: delirium Qualified Codes: R41.0 - Disorientation, unspecified (4) UTI (urinary tract infection) Status: Acute Qualifiers: Urinary tract infection type: acute cystitis Hematuria presence: without hematuria Qualified Codes: N30.00 - Acute cystitis without hematuria (5) Hyponatremia Status: Acute (6) Smoker Status: Chronic (7) Pulmonary infiltrate on chest x-ray Status: Acute Clinical Quality Measures DVT/VTE Risk/Contraindication: Risk Factor Score Per Nursin RFS Level Per Nursing on Admit: 4+=Very High SRIDEVI MURDOCK DO Aug 28, 2018 12:43
--- NOTE | 2018-08-28 14:17 | Progress Note-Cardiology ---
Cardiology SOAP Progress Note Subjective: Breathing easier today No cp or palp or syncope Objective: I&O/Vital Signs 08/28/18 08/28/18 08/28/18 08/28/18 04:13 04:13 07:00 07:28 Temp 97.0 97.6 Pulse 88 82 73 Resp 22 20 B/P (MAP) 149/65 (93) 147/64 (91) Pulse Ox 97 96 O2 Delivery High Flow N/C High Flow N/C High Flow N/C O2 Flow Rate 6.00 6.00 6.00 08/28/18 08/28/18 08/28/18 08/28/18 07:38 08:00 09:00 10:38 Pulse Ox 95 94 O2 Delivery Nasal Cannula High Flow N/C High Flow N/C Nasal Cannula O2 Flow Rate 6.00 6.00 6.00 6.00 08/28/18 08/28/18 11:42 13:00 Temp 97.4 Pulse 84 72 Resp 20 B/P (MAP) 118/59 (78) Pulse Ox 95 O2 Delivery High Flow N/C O2 Flow Rate 6.00 08/28/18 00:00 Intake Total 2050 ml Output Total 1050 ml Balance 1000 ml Weight (Pounds): 200 Weight (Ounces): 0.0 Weight (Calculated Kilograms): 90.330658 Constitutional: AAO x 3, well-developed, well-nourished Respiratory: rhonchi (scattered), other (diminished lower lobes bilat) Cardiovascular: regular rate-rhythm; No JVD; S1 and S2, systolic murmur Gastrointestional: No tender; soft, round, audible bowel sounds Extremities: no lower extremity edema bilateral Neurologic/Psychiatric: grossly intact, power is 5/5 both on sides Skin: No rash, No ulcerations Results/Procedures: Labs Laboratory Tests 08/28/18 05:58: White Blood Count 14.3H, Red Blood Count 3.32L, Hemoglobin 11.3L, Hematocrit 33L , Mean Corpuscular Volume 99, Mean Corpuscular Hemoglobin 34, Mean Corpuscular Hemoglobin Concent 35, Red Cell Distribution Width 15.2H, Platelet Count 184, Mean Platelet Volume 9.6, Neutrophils (%) (Auto) 89H, Lymphocytes (%) (Auto) 7L , Monocytes (%) (Auto) 4, Eosinophils (%) (Auto) 0, Basophils (%) (Auto) 0, Neutrophils # (Auto) 12.8H, Lymphocytes # (Auto) 0.9L, Monocytes # (Auto) 0.6, Eosinophils # (Auto) 0.0, Basophils # (Auto) 0.0, Sodium Level 131L, Potassium Level 4.1, Chloride Level 99, Carbon Dioxide Level 20L, Anion Gap 12, Blood Urea Nitrogen 15, Creatinine 1.29, Estimat Glomerular Filtration Rate 40, BUN/ Creatinine Ratio 12, Glucose Level 150H, Calcium Level 8.3L, Phosphorus Level 2.6, Magnesium Level 1.6L Microbiology 08/25/18 Blood Culture - Preliminary, Resulted No growth 08/25/18 Gram Stain - Final, Resulted 08/25/18 Sputum Culture - Preliminary, Resulted Usual upper respiratory anjana 08/25/18 Urine Culture - Final, Complete Escherichia coli Laboratory Tests 08/27/18 06:23 08/28/18 05:58 A/P: Assessment: Dyspnea likely multi-factorial Pneumonia - management pre pulmonary services Lung mass seen on CT chest of 08-26-18 - management per pulmonary services Acute on chronic exacerbation of COPD Echo of 08/27/18: LVEF 60-65%, grade 1 guy dysfunction, PASP 25 mmHg H/O TIA Carotid stenosis- reported to have 50% bilat ICA stenoses on MRA of 2014 Hypertension Hyperlipidemia Tobaccoism - states quit a week ago Plan: * I spoke with her and her fam and answered CV-related questions * Ok to stop Plavix a week prior to bronchoscopy / biopsy * Pneumonia and COPD is being managed by pulmonary/medical services * Monitor labs SHAQ HUSSEIN MD FACP FAC CCDS Aug 28, 2018 14:17
[2018-08-28 15:45] VITALS: BP 138/65
[2018-08-28 19:35] VITALS: BP 136/73
[2018-08-28] MEDS: meTOproloL SUCCINATE 50 MG (TOPROL XL) TAB PO SCH (21:14)
[2018-08-28] MEDS: CLOPIDOGREL 75 MG (PLAVIX) TABLET PO SCH (21:14)
[2018-08-29] VITALS (7 sets, daily range): BP systolic 119–164; BP diastolic 58–77
[2018-08-29] MEDS: ALPRAZolam 0.25 MG (XANAX) TAB PO PRN ×3 (00:22→21:28)
[2018-08-29] MEDS: MELATONIN 3 MG TABLET PO PRN ×2 (00:22→21:28)
[2018-08-29] MEDS: PIPERACILLIN/TAZOBACTAM (BULK) 4.5 GM in NS (IVPB) 100 ML IV SCH ×3 (00:22→15:44)
[2018-08-29] MEDS: RT-ALBUTEROL/IPRATROPIUM 3 ML (DUONEB) VIAL INH SCH ×7 (00:23→23:51)
[2018-08-29 06:54] LABS: BASOPHILS % (AUTO) 0 % (0-10); EOSINOPHILS % (AUTO) 0 % (0-10); HEMATOCRIT 33 % (35-52); HEMOGLOBIN 11.6 G/DL (11.5-16.0); LYMPHOCYTES # (AUTO) 1.8 X 10^3 (1.0-4.0); LYMPHOCYTES % (AUTO) 13 % (12-44); MEAN CORPUSCULAR HEMOGLOBIN 35 PG (25-34); MEAN CORPUSCULAR HGB CONC 35 G/DL (32-36); MEAN CORPUSCULAR VOLUME 98 FL (80-99); MEAN PLATELET VOLUME 9.3 FL (7.4-10.4); MONOCYTES % (AUTO) 7 % (0-12); NEUTROPHILS % (AUTO) 80 % (42-75); PLATELET COUNT 196 10^3/uL (130-400); RED CELL DISTRIBUTION WIDTH 15.3 % (10.0-14.5); WHITE BLOOD COUNT 13.8 10^3/uL (4.3-11.0)
[2018-08-29 07:15] LABS: CALCIUM 8.3 MG/DL (8.5-10.1); CREATININE SERUM 1.34 MG/DL (0.60-1.30); MAGNESIUM 2.1 MG/DL (1.8-2.4); PHOSPHORUS 3.1 MG/DL (2.3-4.7); POTASSIUM 3.7 MMOL/L (3.6-5.0)
[2018-08-29] MEDS: predniSONE 10 MG TAB PO SCH (08:08)
[2018-08-29] MEDS: ASPIRIN E.C. 81 MG (ECOTRIN) TAB PO SCH (08:08)
--- NOTE | 2018-08-29 12:22 | NUR ---
Walked in halls with RN.
[2018-08-29] MEDS: ACETAMINOPHEN 325 MG TABLET PO PRN (12:50)
--- NOTE | 2018-08-29 12:56 | Progress Note-Hospitalist ---
Subjective HPI/CC On Admission Date Seen by Provider: Aug 29, 2018 Time Seen by Provider: 11:15 Chief Complaint: Altered mental status with shortness of breath HPI: This is a 78yoWF clinic patient of [facility] Dr. Huitron who is a current smoker and has a hx of HTN, who presented to the ER with shortness of breath and weakness found to have sodium level of 119 likely due to Hydrochlorothiazide dosing and exacerbation of COPD and UTI. Pt was placed on Rocephin empirically. Currently pt is drowsy ABG revealed no CO2 narcosis and family is at the bedside in which the granddaughter is a nurse at [employer] previously at [place] [facility] and ICU. At this current time pt denies any pain. 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 At this current time Dr. Torrez ordered CT scan, likely will need a bronch and will be placed on 4th floor for IV antibiotics. We will reconcile all of her home meds and hold Hydrochlorothazide and maintain fluid restriction and normal saline IV fluid at 125 cc an hour. Subjective/Events-last exam Patient doing much better Sodium level improved off hydrochlorothiazide Did have a bowel movement yesterday so we will maintain on stool softeners Asking about lifting the fluid restriction Ambulating around in the room Will need home oxygen at discharge Denies any pain Overall flat affect with what appears to be poor motivation to stop smoking Tolerating antibiotics well Nebulizer treatments are tolerated well Overall no significant problems reported Review of Systems General: Fatigue Pulmonary: Dyspnea Objective Exam Vital Signs Vital Signs Date Time Temp Pulse Resp B/P (MAP) Pulse Ox O2 Delivery O2 Flow Rate FiO2 08/29/18 19:00 67 08/29/18 16:20 98.8 24 157/68 (97) 95 High Flow N/C 4.00 08/25/18 23:50 28 Capillary Refill : Less Than 3 Seconds General Appearance: No Apparent Distress, Anxious, Chronically ill, Obese HEENT: PERRL/EOMI, Normal ENT Inspection, Pharynx Normal Neck: Full Range of Motion, Non Tender, Supple Respiratory: Chest Non Tender, Accessory Muscle Use, Crackles, Decreased Breath Sounds, Wheezing Cardiovascular: Regular Rate, Rhythm, No Edema, No Gallop Gastrointestinal: Normal Bowel Sounds, No Organomegaly, No Pulsatile Mass, Non Tender, Soft Back: Normal Inspection, No CVA Tenderness, No Vertebral Tenderness Extremity: Normal Capillary Refill, Normal Inspection, Normal Range of Motion, Non Tender, No Calf Tenderness, No Pedal Edema Neurologic/Psychiatric: Alert, Oriented x3, No Motor/Sensory Deficits, Normal Mood/Affect, workplace relations adviser II-XII Norm as Tested Skin: Normal Color, Warm/Dry Lymphatic: No Adenopathy Results/Procedures Lab Laboratory Tests 08/29/18 06:12 08/29/18 06:19 Patient resulted labs reviewed. Assessment/Plan Assessment and Plan Assess & Plan/Chief Complaint Assessment: AECOPD UTI Hyponatremia improved while holding HCTZ Weakness Smoker Infiltrate on CXR Hypoxia Plan: Changed abx to Zosyn Nebs O2 Dr Torrez is appreciated PT/OT HLIVF Check labs in am Diagnosis/Problems Diagnosis/Problems (1) COPD exacerbation Status: Acute (2) Hypertension Status: Chronic Qualifiers: Hypertension type: essential hypertension Qualified Codes: I10 - Essential (primary) hypertension (3) Altered mental status Status: Acute Qualifiers: Altered mental status type: delirium Qualified Codes: R41.0 - Disorientation, unspecified (4) UTI (urinary tract infection) Status: Acute Qualifiers: Urinary tract infection type: acute cystitis Hematuria presence: without hematuria Qualified Codes: N30.00 - Acute cystitis without hematuria (5) Hyponatremia Status: Acute (6) Smoker Status: Chronic (7) Pulmonary infiltrate on chest x-ray Status: Acute Clinical Quality Measures DVT/VTE Risk/Contraindication: Risk Factor Score Per Nursin RFS Level Per Nursing on Admit: 4+=Very High SRIDEVI MURDOCK DO Aug 29, 2018 12:56
--- NOTE | 2018-08-29 14:35 | NUR ---
Daughter requesting Nicotine patch for patient. Says patient smokes 4-5 cigarettes per day. Patient also requesting stool softener. Dr. Ceja notified. Ok with Nicotine patch and Colace PO BID. Addendum: 08/29/18 at 1825 by NICOLAS JEFFERY RN Reports BM yesterday, 08/28/18.
[2018-08-29] MEDS: NICOTINE 7 MG (NICODERM) PATCH TD SCH (15:10)
--- NOTE | 2018-08-29 15:13 | Progress Note-Cardiology ---
Cardiology SOAP Progress Note Subjective: Breathing is improving No cp or palp or syncope Objective: I&O/Vital Signs 08/29/18 08/29/18 08/29/18 08/29/18 04:00 04:00 07:00 07:12 Temp 96.6 Pulse 61 54 Resp 22 B/P (MAP) 130/68 (88) Pulse Ox 94 93 O2 Delivery High Flow N/C High Flow N/C Nasal Cannula O2 Flow Rate 6.00 6.00 6.00 08/29/18 08/29/18 08/29/18 08/29/18 07:55 08:00 10:39 11:00 Temp 97.0 Pulse 59 Resp 20 B/P (MAP) 119/58 (78) Pulse Ox 95 93 O2 Delivery High Flow N/C High Flow N/C High Flow N/C Nasal Cannula O2 Flow Rate 5.00 5.00 5.00 5.00 08/29/18 08/29/18 08/29/18 08/29/18 11:39 12:21 13:00 14:39 Temp 97.1 Pulse 61 70 Resp 18 B/P (MAP) 139/77 (97) Pulse Ox 94 92 O2 Delivery High Flow N/C High Flow N/C Nasal Cannula O2 Flow Rate 5.00 4.00 4.00 08/29/18 00:00 Intake Total 920 ml Balance 920 ml Weight (Pounds): 200 Weight (Ounces): 0.0 Weight (Calculated Kilograms): 90.308963 Constitutional: AAO x 3, well-developed, well-nourished Respiratory: rhonchi (scattered), other (diminished lower lobes bilat) Cardiovascular: regular rate-rhythm; No JVD; S1 and S2, systolic murmur Gastrointestional: No tender; soft, round, audible bowel sounds Extremities: no lower extremity edema bilateral Neurologic/Psychiatric: grossly intact, power is 5/5 both on sides Skin: No rash, No ulcerations Results/Procedures: Labs Laboratory Tests 08/29/18 06:12: Sodium Level 132L, Potassium Level 3.7, Chloride Level 98, Carbon Dioxide Level 26, Anion Gap 8, Blood Urea Nitrogen 15, Creatinine 1.34H, Estimat Glomerular Filtration Rate 38, BUN/Creatinine Ratio 11, Glucose Level 109H, Calcium Level 8.3L, Phosphorus Level 3.1, Magnesium Level 2.1 08/29/18 06:19: White Blood Count 13.8H, Red Blood Count 3.35L, Hemoglobin 11.6, Hematocrit 33L , Mean Corpuscular Volume 98, Mean Corpuscular Hemoglobin 35H, Mean Corpuscular Hemoglobin Concent 35, Red Cell Distribution Width 15.3H, Platelet Count 196, Mean Platelet Volume 9.3, Neutrophils (%) (Auto) 80H, Lymphocytes (%) (Auto) 13 , Monocytes (%) (Auto) 7, Eosinophils (%) (Auto) 0, Basophils (%) (Auto) 0, Neutrophils # (Auto) 11.0H, Lymphocytes # (Auto) 1.8, Monocytes # (Auto) 1.0, Eosinophils # (Auto) 0.0, Basophils # (Auto) 0.0 Microbiology 08/25/18 Blood Culture - Preliminary, Resulted No growth 08/25/18 Gram Stain - Final, Complete 08/25/18 Sputum Culture - Final, Complete Usual upper respiratory anjana 08/25/18 Urine Culture - Final, Complete Escherichia coli Laboratory Tests 08/28/18 05:58 08/29/18 06:12 08/29/18 06:19 A/P: Assessment: Dyspnea likely multi-factorial Pneumonia - management pre pulmonary services Lung mass seen on CT chest of 08-26-18 - management per pulmonary services Acute on chronic exacerbation of COPD Echo of 08/27/18: LVEF 60-65%, grade 1 guy dysfunction, PASP 25 mmHg H/O TIA Carotid stenosis- reported to have 50% bilat ICA stenoses on MRA of 2014 Hypertension Hyperlipidemia Tobaccoism - states quit a week ago Plan: * I again spoke with her and her fam and answered CV-related questions * Ok to stop Plavix a week prior to bronchoscopy / biopsy * Pneumonia and COPD is being managed by pulmonary/medical services * Monitor labs SHAQ HUSSEIN MD FACP [facility]S Aug 29, 2018 15:13
[2018-08-29] MEDS ORDERED: RT-ALBUTEROL/IPRATROPIUM 3 ML (DUONEB) VIAL INH PRN (17:30)
[2018-08-29] MEDS: CLOPIDOGREL 75 MG (PLAVIX) TABLET PO SCH (21:24)
[2018-08-29] MEDS: meTOproloL SUCCINATE 50 MG (TOPROL XL) TAB PO SCH (21:24)
[2018-08-29] MEDS: DOCUSATE SODIUM 100 MG (COLACE) CAP PO SCH (21:24)
[2018-08-30] VITALS: BP 160/67
[2018-08-30] MEDS: PIPERACILLIN/TAZOBACTAM (BULK) 4.5 GM in NS (IVPB) 100 ML IV SCH ×4 (00:17→23:17)
[2018-08-30] MEDS: RT-ALBUTEROL/IPRATROPIUM 3 ML (DUONEB) VIAL INH SCH ×6 (03:07→22:48)
[2018-08-30 04:00] VITALS: BP 145/71
[2018-08-30 06:17] LABS: BASOPHILS % (AUTO) 0 % (0-10); EOSINOPHILS % (AUTO) 0 % (0-10); HEMATOCRIT 36 % (35-52); HEMOGLOBIN 12.1 G/DL (11.5-16.0); LYMPHOCYTES # (AUTO) 2.7 X 10^3 (1.0-4.0); LYMPHOCYTES % (AUTO) 19 % (12-44); MEAN CORPUSCULAR HEMOGLOBIN 34 PG (25-34); MEAN CORPUSCULAR HGB CONC 34 G/DL (32-36); MEAN CORPUSCULAR VOLUME 99 FL (80-99); MEAN PLATELET VOLUME 9.2 FL (7.4-10.4); MONOCYTES # (AUTO) 1.2 X 10^3 (0.0-1.0); MONOCYTES % (AUTO) 8 % (0-12); NEUTROPHILS # (AUTO) 10.3 X 10^3 (1.8-7.8); NEUTROPHILS % (AUTO) 73 % (42-75); PLATELET COUNT 212 10^3/uL (130-400); RED CELL DISTRIBUTION WIDTH 14.9 % (10.0-14.5); WHITE BLOOD COUNT 14.3 10^3/uL (4.3-11.0)
[2018-08-30 06:31] LABS: CALCIUM 8.2 MG/DL (8.5-10.1); CREATININE SERUM 1.34 MG/DL (0.60-1.30); MAGNESIUM 2.1 MG/DL (1.8-2.4); PHOSPHORUS 2.9 MG/DL (2.3-4.7); POTASSIUM 3.9 MMOL/L (3.6-5.0)
[2018-08-30 08:00] VITALS: BP 166/68
[2018-08-30] MEDS: NICOTINE 7 MG (NICODERM) PATCH TD SCH (08:36)
[2018-08-30] MEDS: DOCUSATE SODIUM 100 MG (COLACE) CAP PO SCH ×2 (08:36→20:10)
[2018-08-30] MEDS: ASPIRIN E.C. 81 MG (ECOTRIN) TAB PO SCH (08:36)
[2018-08-30] MEDS: predniSONE 10 MG TAB PO SCH (08:36)
[2018-08-30] MEDS: NICOTINE PATCH REMOVAL TP SCH (08:40)
--- NOTE | 2018-08-30 11:12 | Progress Note-Cardiology ---
Cardiology SOAP Progress Note Subjective: Sitting up in bed. Daughter at the bedside. Denies any c/o CP or palpitations. Feels SOB is improving. Objective: I&O/Vital Signs 08/30/18 08/30/18 08/30/18 08/30/18 03:07 04:00 04:00 06:27 Temp 97.6 Pulse 50 Resp 18 B/P (MAP) 145/71 (95) Pulse Ox 94 95 95 O2 Delivery Nasal Cannula High Flow N/C High Flow N/C Nasal Cannula O2 Flow Rate 4.00 4.00 4.00 4.00 08/30/18 08/30/18 08/30/18 08/30/18 07:00 07:20 08:00 10:47 Temp 97.4 Pulse 64 55 Resp 18 B/P (MAP) 166/68 (100) Pulse Ox 95 91 O2 Delivery High Flow N/C High Flow N/C Nasal Cannula O2 Flow Rate 4.00 4.00 4.00 08/30/18 12:40 Temp 98.4 Pulse 56 Resp 16 B/P (MAP) 153/65 (94) Pulse Ox 94 O2 Delivery Nasal Cannula O2 Flow Rate 4.00 08/30/18 00:00 Intake Total 1100 ml Output Total 0 ml Balance 1100 ml Weight (Pounds): 199 Weight (Ounces): 2.0 Weight (Calculated Kilograms): 90.167582 Constitutional: AAO x 3, well-developed, well-nourished Respiratory: rhonchi (scattered), other (diminished lower lobes bilat) Cardiovascular: regular rate-rhythm; No JVD; S1 and S2, systolic murmur Gastrointestional: No tender; soft, round, audible bowel sounds Extremities: no lower extremity edema bilateral Neurologic/Psychiatric: grossly intact, power is 5/5 both on sides Skin: No rash, No ulcerations Results/Procedures: Labs Laboratory Tests 08/30/18 05:35: White Blood Count 14.3H, Red Blood Count 3.59L, Hemoglobin 12.1, Hematocrit 36, Mean Corpuscular Volume 99, Mean Corpuscular Hemoglobin 34, Mean Corpuscular Hemoglobin Concent 34, Red Cell Distribution Width 14.9H, Platelet Count 212, Mean Platelet Volume 9.2, Neutrophils (%) (Auto) 73, Lymphocytes (%) (Auto) 19, Monocytes (%) (Auto) 8, Eosinophils (%) (Auto) 0, Basophils (%) (Auto) 0, Neutrophils # (Auto) 10.3H, Lymphocytes # (Auto) 2.7, Monocytes # (Auto) 1.2H, Eosinophils # (Auto) 0.0, Basophils # (Auto) 0.0, Sodium Level 132L, Potassium Level 3.9, Chloride Level 99, Carbon Dioxide Level 25, Anion Gap 8, Blood Urea Nitrogen 18, Creatinine 1.34H, Estimat Glomerular Filtration Rate 38, BUN/ Creatinine Ratio 13, Glucose Level 93, Calcium Level 8.2L, Phosphorus Level 2.9 , Magnesium Level 2.1 Microbiology 08/25/18 Blood Culture - Preliminary, Resulted No growth 08/25/18 Gram Stain - Final, Complete 08/25/18 Sputum Culture - Final, Complete Usual upper respiratory anjana 08/25/18 Urine Culture - Final, Complete Escherichia coli A/P: Assessment: Dyspnea likely multi-factorial Pneumonia - management pre pulmonary services Lung mass seen on CT chest of 08-26-18 - management per pulmonary services Acute on chronic exacerbation of COPD Echo of 08/27/18: LVEF 60-65%, grade 1 guy dysfunction, PASP 25 mmHg H/O TIA Carotid stenosis- reported to have 50% bilat ICA stenoses on MRA of 2014 Hypertension Hyperlipidemia Tobaccoism - states quit a week ago Plan: * Ok to stop Plavix a week prior to bronchoscopy / biopsy * Pneumonia and COPD is being managed by pulmonary/medical services * Monitor labs * BP not well controlled - resume anti-hypertensives from home * Resume statin Physician Assessment Physician Assessment Shortness of breath better. No cp. No palp or syncope Lungs: fair air entry, prolonged exp Cor: reg Ext: no c/c/e A&R * As documented in our note above that I updated (italics) and as noted below * Continue current regimen * Ok for d/c from card standpoint * Advised to quit smoking SHABBIR T[facility] Aug 30, 2018 11:12 SHAQ HUSSEIN MD [facility] Aug 30, 2018 13:16
[2018-08-30] MEDS ORDERED: amLODIPine 5 MG (NORVASC) TAB PO NR (11:15)
--- NOTE | 2018-08-30 11:47 | NUR ---
provided prayer and Communion.
--- NOTE | 2018-08-30 11:58 | Occupational Ther Daily Note ---
OT Current Status-Daily Note Subjective Pt alert, lying in bed. Pt agrees to therapy. Pt stated that she is down because she was supposed to go home today and she can't now because she is still to sick. Mental Status/Objective Patient Orientation: Person, Place, Time, Situation Therapy Code Descriptions/Definitions Functional [place] Measure: 0=Not Assessed/NA 4=Minimal Assistance 1=Total Assistance 5=Supervision or Setup 2=Maximal Assistance 6=Modified [place] 3=Moderate Assistance 7=Complete [place] Attachments: IV, Oxygen ADL-Treatment Pt agrees to sponge bath. After set up, pt able to cleanse upper body and upper legs. Pt declined cleansing buttocks/norris area, stating that she cleaned really good yesterday. Pt stated that she would clean again after she toileted sometime today. Pt then stated that she was cold, assist to [facility] gown due to telemetry and IV. Pt declined oral care or putting in dentures. Pt able to scoot self while sitting on EOB up towards HOB then was able to go from EOB to supine by self using bedrail. After therapy, pt lying in bed with call light/phone in reach. All needs met in room. Bathing (FIM): 4 OT Short Term Goals Short Term Goals Transfers (B,C,W/C) (FIM): 6 1=Demonstrate adherence to instructed precautions during ADL tasks. 2=Patient will verbalize/demonstrate understanding of assistive devices/ modifications for ADL. 3=Patient will improve strength/tolerance for activity to enable patient to perform ADL's. OT Alf Goals Lining Printer Goals Time Frame: Sep 04, 2018 Grooming(FIM): 6 Bathing(FIM): 5 Upper Body Dressing(FIM): 6 Lower Body Dressing(FIM): 6 Toileting(FIM): 6 Toilet/Commode Transfer(FIM): 6 Additional Goals: 1-Demonstrate ADL Tasks, 2-Verbalize Understanding, 3- ImproveStrength/[place] 1=Demonstrate adherence to instructed precautions during ADL tasks. 2=Patient will verbalize/demonstrate understanding of assistive devices/ modifications for ADL. 3=Patient will improve strength/tolerance for activity to enable patient to perform ADL's. OT Education/Plan Problem List/Assessment Pt demonstrates decreased ADL functioning, strength, and activity tolerance. Pt to benefit from skilled OT intervention for ADL training, transfers, and strengthening to increase level of independence and allow safe discharge home. Discharge Recommendations Plan/Recommendations: Continue POC Treatment Plan/Plan of Care Patient would benefit from OT for education, treatment and training to promote independence in ADL's, mobility, safety and/or upper extremity function for ADL' s. Plan of Care: ADL Retraining, Functional Mobility, UE Funct Exercise/Act Treatment Duration: Sep 04, 2018 Frequency: 5 times per week Estimated Hrs Per Day: .25 hour per day Rehab Potential: Fair Time/GCodes Start Time: 11:30 Stop Time: 11:55 Total Time Billed (hr/min): 25 Billed Treatment Time 1 visit-ADL 2 (25 min) ANABEL HANSEN Aug 30, 2018 11:58
[2018-08-30 12:40] VITALS: BP 153/65
--- NOTE | 2018-08-30 12:52 | Pulmonary Progress Note ---
Subjective Time Seen by a Provider: 12:52 Subjective/Events-last exam No compilations noted. Sepsis Event Evaluation Height, Weight, BMI Height: 5'4.00" Weight: 199lbs. 2.0oz. 90.318962zs; 33.5 BMI Method:Stated Exam Exam Vital Signs Date Time Temp Pulse Resp B/P (MAP) Pulse Ox O2 Delivery O2 Flow Rate FiO2 08/30/18 12:40 98.4 56 16 153/65 (94) 94 Nasal Cannula 4.00 08/30/18 10:47 91 Nasal Cannula 4.00 08/30/18 08:00 97.4 55 18 166/68 (100) 95 High Flow N/C 4.00 08/30/18 07:20 High Flow N/C 4.00 08/30/18 07:00 64 08/30/18 06:27 95 Nasal Cannula 4.00 08/30/18 04:00 97.6 50 18 145/71 (95) 95 High Flow N/C 4.00 08/30/18 04:00 High Flow N/C 4.00 08/30/18 03:07 94 Nasal Cannula 4.00 08/30/18 01:00 62 08/30/18 00:00 97.3 62 20 160/67 (98) 97 High Flow N/C 4.00 08/30/18 00:00 High Flow N/C 6.00 08/29/18 21:00 High Flow N/C 5.00 08/29/18 20:00 98.6 73 20 164/74 (104) 95 High Flow N/C 5.00 08/29/18 20:00 High Flow N/C 6.00 08/29/18 19:00 67 08/29/18 16:20 98.8 73 24 157/68 (97) 95 High Flow N/C 4.00 08/29/18 15:58 High Flow N/C 4.00 08/29/18 14:39 83 36 08/29/18 14:39 92 Nasal Cannula 4.00 08/29/18 13:00 70 I & O 08/30/18 07:00 Intake Total 1470 ml Output Total 3 ml Balance 1467 ml Height & Weight Height: 5'4.00" Weight: 199lbs. 2.0oz. 90.683596wt; 33.5 BMI Method:Stated General Appearance: No Apparent Distress, Anxious, Chronically ill, Obese HEENT: PERRL/EOMI, Normal ENT Inspection, Pharynx Normal Neck: Full Range of Motion, Non Tender, Supple Respiratory: Chest Non Tender, Accessory Muscle Use, Decreased Breath Sounds Cardiovascular: Regular Rate, Rhythm, No Edema, No Gallop Capillary Refill: Less Than 3 Seconds Gastrointestinal: normal bowel sounds, non tender, soft, no organomegaly, no pulsatile mass Extremity: Normal Capillary Refill, Normal Inspection, Normal Range of Motion, Non Tender, No Calf Tenderness, No Pedal Edema Neurologic/Psychiatric: Alert, Oriented x3 Skin: Normal Color, Warm/Dry Lymphatic: No Adenopathy Results Lab Laboratory Tests 08/29/18 06:12 08/29/18 06:19 08/30/18 05:35 Assessment/Plan Assessment/Plan Acute on chronic respiratory failure with hypoxia COPDAE -C02 is 36 on admission - prednisone taper -SVNS Q4 Hyponatremia- monitor -Monitor -check AM labs - Pending Lung mass per CT scan with mediastinal lymphadenopathy - will need bronchoscopy with EBUS however she needs to be off plavix for 5days prior to procedure. Acute renal failure -Monitor Atelectasis -Increase activity -IS LAURA PAYNE DO Aug 30, 2018 12:52
--- NOTE | 2018-08-30 14:31 | Physical Therapy Daily Note ---
PT Daily Note-Current Subjective Pt reported that over the weekend she walked with her son without her oxygen on. She requested to walk without her oxygen today. Otherwise reports she feels she is doing better. Mental Status Patient Orientation: Person, Place, Time, Situation Transfers Therapy Code Descriptions/Definitions Functional [place] Measure: 0=Not Assessed/NA 4=Minimal Assistance 1=Total Assistance 5=Supervision or Setup 2=Maximal Assistance 6=Modified [place] 3=Moderate Assistance 7=Complete [place] Therapy Quality Codes: 6 Independent with activity with or without an assistive device 5 Patient requires set up or clean up by helper. Patient completes activity by themselves 4 Supervision or touching assist (CGA). [place] provide cues , steadying assist 3 The helper provides less than half the effort to complete the activity 2 The helper provides more than half the effort to complete the activity 1 Dependent. The helper does all the effort to complete an activity 7 Patient refused to complete or attempt activity 9 The patient did not perform the activity before the current illness or injury 88 Not attempted due to Medical conditions or safety concerns Weight Bearing Right Lower Extremity: Right Weight Bearing/Tolerated Left Lower Extremity: Left Weight Bearing/Tolerated Treatments Pt sitting EOB when this therapist arrived. Oxygen in situ at 4 l/min. Sats taken and found to be at 93%. Allowed pt to try ambulation without oxygen, walked 125 ft wtih DIRECTOR EHS without O2, monitored sats and they were found to be 87% . Pt recovered to 94% in less than 45 seconds. Pt then walked with oxygen at 4l/min x 200 ft with SBA, upon return to sitting, her sats were at 93%. While sitting EOB worked on deep breathing technique facilitated for LE ther ex for AP , LAQ and hip flexion all x 10-12 each with pt focus on filling her lungs fully. Pt returned to bed with min assist for her legs. In bed, oxygen in situ and needs met post treatment. Assessment Current Status: Good Progress Patient's sats do drop with activity if oxygen is not on. Pt slightly unsteady with initial standing but is able to steady herself. She did not use a FWW this visit. PT Short Term Goals Short Term Goals Time Frame: Sep 03, 2018 Transfers (B,C,W/C) (FIM): 6 Gait (FIM): 5 Distance (FIM): 3=150 ft Gait Distance Comment: 150' Gait Level of Assist: 5 Gait Assistive Device: FWW PT Plan Problem List Problem List: Activity Tolerance, Functional Strength, Safety, Balance, Gait, Transfer Treatment/Plan Treatment Plan: Continue Plan of Care Treatment Plan: Bed Mobility, Education, Functional Activity [place], Functional Strength, Gait, Safety, Therapeutic Exercise, Transfers Treatment Duration: Sep 03, 2018 Frequency: 6 times per week Estimated Hrs Per Day: .25 hour per day Patient and/or Family Agrees t: Yes Safety Risks/Education Patient Education: Safety Issues (use of oxygen) Teaching Recipient: Patient, Family Teaching Methods: Discussion Response to Teaching: Verbalize Understanding Discharge Recommendations Therapy D/C Recommendations: Physical Therapy Home Care Time/GCodes Time In: 1330 Time Out: 1359 Total Billed Treatment Time: 29 Total Billed Treatment visit EX 12 GT 17 ANABEL BOURNE PT Aug 30, 2018 14:31
[2018-08-30 15:52] VITALS: BP 134/63
--- NOTE | 2018-08-30 16:56 | Progress Note (SOAP) ---
Subjective Subjective/Events-last exam Afebrile, no acute events. Still on 4 lpm supplemental oxygen. Review of Systems Date Seen by Provider: Aug 30, 2018 Time Seen by Provider: 10:51 Objective Exam Last Set of Vital Signs Vital Signs Date Time Temp Pulse Resp B/P (MAP) Pulse Ox O2 Delivery O2 Flow Rate FiO2 08/30/18 15:52 98.5 65 18 134/63 (86) 94 High Flow N/C 4.00 08/25/18 23:50 28 Capillary Refill : Less Than 3 Seconds I&O Intake and Output 08/30/18 00:00 Intake Total 1220 ml Output Total 0 ml Balance 1220 ml Intake Oral 980 ml IV Total 240 ml Output Urine Total 0 ml # Voids 7 General: Alert, No Acute Distress Lungs: Other (diffuse wheezing) Heart: Regular Rate, No Murmurs Neuro: Normal Speech Psych/Mental Status: Mental Status NL Results/Procedures Lab Laboratory Tests 08/30/18 05:35: White Blood Count 14.3H, Red Blood Count 3.59L, Hemoglobin 12.1, Hematocrit 36, Mean Corpuscular Volume 99, Mean Corpuscular Hemoglobin 34, Mean Corpuscular Hemoglobin Concent 34, Red Cell Distribution Width 14.9H, Platelet Count 212, Mean Platelet Volume 9.2, Neutrophils (%) (Auto) 73, Lymphocytes (%) (Auto) 19, Monocytes (%) (Auto) 8, Eosinophils (%) (Auto) 0, Basophils (%) (Auto) 0, Neutrophils # (Auto) 10.3H, Lymphocytes # (Auto) 2.7, Monocytes # (Auto) 1.2H, Eosinophils # (Auto) 0.0, Basophils # (Auto) 0.0, Sodium Level 132L, Potassium Level 3.9, Chloride Level 99, Carbon Dioxide Level 25, Anion Gap 8, Blood Urea Nitrogen 18, Creatinine 1.34H, Estimat Glomerular Filtration Rate 38, BUN/ Creatinine Ratio 13, Glucose Level 93, Calcium Level 8.2L, Phosphorus Level 2.9 , Magnesium Level 2.1 Microbiology 08/25/18 Blood Culture - Preliminary, Resulted No growth 08/25/18 Gram Stain - Final, Complete 08/25/18 Sputum Culture - Final, Complete Usual upper respiratory anjana 08/25/18 Urine Culture - Final, Complete Escherichia coli [facility] [id number] PT STATUS: ADM IN : 1940 PHYSICIAN: ISMAEL TORREZ DO ADMIT DATE: 08/25/18 Draft Date of Exam:08/27/18 CHEST 1 VIEW, AP/PA ONLY INDICATION: Shortness of breath. COMPARISON: 08/25/2018. FINDINGS: Portable chest shows minimal infiltrate and/or atelectasis developing in the left lung base since previous exam. Right lung is clear. Heart is upper limits of normal. There is no pulmonary edema. No pneumothorax or pleural effusion. IMPRESSION: Development of discoid atelectasis and/or infiltrate in the left lung base since previous exam. Dictated on workstation # [id number] Dict: 08/27/18 0851 Trans: 08/27/18 0907 [id number] Interpreted by: BABITA HODGES MD Electronically signed by: NAME: TABATHA MARSHALL REC#: [id number] PT STATUS: ADM IN : 1940 PHYSICIAN: ISMAEL TORREZ DO ADMIT DATE: 08/25/18 Signed Date of Exam: 08/26/18 CT CHEST WO PROCEDURE: CT chest without contrast. TECHNIQUE: Multiple contiguous axial images were obtained through the chest without the use of intravenous contrast. INDICATION: Shortness of breath. COMPARISON: There are no prior CT chest examinations available for comparison. FINDINGS: Along the periphery of the right lower lobe, there is a 1.3 x 1.1 cm noncalcified smoothly marginated parenchymal lung mass. Even in retrospect, this finding could not be identified on the chest exam performed on 08/25/2018. However, I do feel that this density was most likely present on the prior chest exam of 07/10/2014. This finding was essentially obscured by the overlying breast tissue. It may be slightly larger than on the prior exam, and the possibility that this is neoplastic in nature should certainly be considered. I would recommend that PET/CT be performed for further evaluation. There is a second much smaller 0.5 x 0.5 cm rounded density just inferior to the larger nodule. This could also be further evaluated by PET/CT. No other parenchymal lung mass is identified. There are alveolar/interstitial infiltrates involving both lower lobes. Most likely, these are due to pneumonia/atelectasis. These were difficult to appreciate on the prior exam as well. There is no pleural effusion identified. The upper lungs are generally clear. The heart size is mildly enlarged. There are coronary artery calcifications evident. The aorta is not abnormally dilated. There is no obvious mediastinal or hilar adenopathy. The thyroid gland where visualized is unremarkable. There is no definite mass visualized within either breast. The sections through the upper abdomen show cholelithiasis but no evidence for acute cholecystitis. The left kidney also appears to be atrophic. The bone windows are unremarkable for a fracture or for a destructive lesion. IMPRESSION: 1. There is bibasilar pneumonia/atelectasis. There is no acute cardiopulmonary abnormality identified otherwise. 2. The parenchymal masses along the periphery of the right lung base are of uncertain etiology. The possibility that these are neoplastic in nature should certainly be considered, however. Recommendations as above. 3. There is cholelithiasis without evidence for acute cholecystitis. 4. Left kidney is atrophic. 5. These results were discussed with Dr. Ismael Torrez. Dictated by: Dictated on workstation # [id number] Dict: 08/26/18 0855 Trans: 08/26/18 1623 Interpreted by: RICKEY JUAREZ MD Electronically signed by: RICKEY JUAREZ MD 08/26/18 1623 Assessment/Plan Assessment/Plan (1) UTI (urinary tract infection) Status: Acute Assessment & Plan: On zosyn for pneumonia, covers E coli UTI as well Qualifiers: Qualified Codes: N30.00 - Acute cystitis without hematuria (2) COPD exacerbation Status: Acute Assessment & Plan: Pulmonology consulted, appreciate recommendations, on prednisone taper and zosyn and breathing treatments. (3) Hyponatremia Status: Acute Assessment & Plan: Suspected related to hydrochlorothiazide and pneumonia. Improved but not normal. Continue to hold HCTZ. (4) Lung mass Status: Acute Assessment & Plan: Will need biopsy outpatient, per Dr. Torrez. (5) Chronic renal insufficiency Status: Chronic Assessment & Plan: Stable since 2014 (6) DVT prophylaxis Status: Acute Assessment & Plan: Enoxaparin Clinical Quality Measures DVT/VTE Risk/Contraindication: Risk Factor Score Per Nursin RFS Level Per Nursing on Admit: 4+=Very High HENRIK KAY MD Aug 30, 2018 16:56
[2018-08-30] MEDS ORDERED: ENOXAPARIN 40 MG/0.4 ML (LOVENOX) SYR SC SCH (17:30)
[2018-08-30] MEDS: CLOPIDOGREL 75 MG (PLAVIX) TABLET PO SCH (20:10)
[2018-08-30] MEDS: meTOproloL SUCCINATE 50 MG (TOPROL XL) TAB PO SCH (20:10)
[2018-08-30 20:15] VITALS: BP 145/63
[2018-08-30] MEDS: MELATONIN 3 MG TABLET PO PRN (21:07)
[2018-08-30] MEDS: ALPRAZolam 0.25 MG (XANAX) TAB PO PRN (23:14)
[2018-08-31 00:10] VITALS: BP 166/66
[2018-08-31] MEDS: RT-ALBUTEROL/IPRATROPIUM 3 ML (DUONEB) VIAL INH SCH ×2 (02:55→12:17)
[2018-08-31 03:45] VITALS: BP 153/73
[2018-08-31 06:05] LABS: BASOPHILS % (AUTO) 0 % (0-10); EOSINOPHILS % (AUTO) 0 % (0-10); HEMATOCRIT 36 % (35-52); HEMOGLOBIN 12.4 G/DL (11.5-16.0); LYMPHOCYTES # (AUTO) 3.1 X 10^3 (1.0-4.0); LYMPHOCYTES % (AUTO) 21 % (12-44); MEAN CORPUSCULAR HEMOGLOBIN 34 PG (25-34); MEAN CORPUSCULAR HGB CONC 34 G/DL (32-36); MEAN CORPUSCULAR VOLUME 99 FL (80-99); MONOCYTES # (AUTO) 1.2 X 10^3 (0.0-1.0); MONOCYTES % (AUTO) 8 % (0-12); NEUTROPHILS # (AUTO) 10.4 X 10^3 (1.8-7.8); NEUTROPHILS % (AUTO) 70 % (42-75); PLATELET COUNT 253 10^3/uL (130-400); RED CELL DISTRIBUTION WIDTH 15.3 % (10.0-14.5); WHITE BLOOD COUNT 14.8 10^3/uL (4.3-11.0)
[2018-08-31 06:23] LABS: CALCIUM 8.4 MG/DL (8.5-10.1); CREATININE SERUM 1.32 MG/DL (0.60-1.30); MAGNESIUM 2.3 MG/DL (1.8-2.4); PHOSPHORUS 3.6 MG/DL (2.3-4.7); POTASSIUM 3.8 MMOL/L (3.6-5.0)
[2018-08-31 08:00] VITALS: BP 159/72
--- NOTE | 2018-08-31 08:00 | Pulmonary Progress Note ---
Subjective Time Seen by a Provider: 07:57 Subjective/Events-last exam PT is doing better. Sepsis Event Evaluation Height, Weight, BMI Height: 5'4.00" Weight: 204lbs. 6.0oz. 92.784516lc; 33.5 BMI Method:Stated Exam Exam Vital Signs Date Time Temp Pulse Resp B/P (MAP) Pulse Ox O2 Delivery O2 Flow Rate FiO2 08/31/18 03:45 96.1 59 20 153/73 (99) High Flow N/C 4.00 08/31/18 02:55 96 Nasal Cannula 4.00 08/31/18 01:00 57 08/31/18 00:10 97.5 67 20 166/66 (99) 96 High Flow N/C 4.00 08/30/18 22:48 96 Nasal Cannula 4.00 08/30/18 20:17 High Flow N/C 4.00 08/30/18 20:15 98.6 75 20 145/63 (90) 94 High Flow N/C 4.00 08/30/18 19:36 93 Nasal Cannula 4.00 08/30/18 19:00 76 08/30/18 15:52 98.5 65 18 134/63 (86) 94 High Flow N/C 4.00 08/30/18 14:22 94 Nasal Cannula 4.00 08/30/18 13:00 74 08/30/18 12:40 98.4 56 16 153/65 (94) 94 Nasal Cannula 4.00 08/30/18 10:47 91 Nasal Cannula 4.00 08/30/18 08:00 97.4 55 18 166/68 (100) 95 High Flow N/C 4.00 I & O 08/31/18 07:00 Intake Total 1040 ml Output Total 200 ml Balance 840 ml Height & Weight Height: 5'4.00" Weight: 204lbs. 6.0oz. 92.600135au; 33.5 BMI Method:Stated General Appearance: No Apparent Distress, Anxious, Chronically ill, Obese HEENT: PERRL/EOMI, Normal ENT Inspection, Pharynx Normal Neck: Full Range of Motion, Non Tender, Supple Respiratory: Chest Non Tender, Accessory Muscle Use, Decreased Breath Sounds Cardiovascular: Regular Rate, Rhythm, No Edema, No Gallop Capillary Refill: Less Than 3 Seconds Gastrointestinal: normal bowel sounds, non tender, soft, no organomegaly, no pulsatile mass Extremity: Normal Capillary Refill, Normal Inspection, Normal Range of Motion, Non Tender, No Calf Tenderness, No Pedal Edema Neurologic/Psychiatric: Alert, Oriented x3 Skin: Normal Color, Warm/Dry Lymphatic: No Adenopathy Results Lab Laboratory Tests 08/30/18 05:35 08/31/18 05:15 Assessment/Plan Assessment/Plan Acute on chronic respiratory failure with hypoxia COPDAE -C02 is 36 on admission - prednisone taper -SVNS Q4 Hyponatremia- monitor -Monitor -check AM labs - Pending Lung mass per CT scan with mediastinal lymphadenopathy - Pt is scheduled for bronchoscopy with EBUS on 09/08. D/C plavix tomorrow. Will resume Plavix after bronchoscopy with EBUS. Acute renal failure -Monitor Atelectasis -Increase activity -IS Pt is ok from pulmonary standpoint for discharge. LAURA PAYNE DO Aug 31, 2018 08:00
[2018-08-31] MEDS: DOCUSATE SODIUM 100 MG (COLACE) CAP PO SCH (08:56)
[2018-08-31] MEDS: ASPIRIN E.C. 81 MG (ECOTRIN) TAB PO SCH (08:56)
[2018-08-31] MEDS: PIPERACILLIN/TAZOBACTAM (BULK) 4.5 GM in NS (IVPB) 100 ML IV SCH (08:57)
[2018-08-31] MEDS: predniSONE 10 MG TAB PO SCH (08:57)
[2018-08-31] MEDS: NICOTINE 7 MG (NICODERM) PATCH TD SCH (08:57)
[2018-08-31] MEDS: NICOTINE PATCH REMOVAL TP SCH (09:00)
[2018-08-31] MEDS ORDERED: amLODIPine 5 MG (NORVASC) TAB PO SCH (09:00)
--- NOTE | 2018-08-31 11:11 | Occupational Ther Daily Note ---
OT Current Status-Daily Note Subjective Pt finishing up bathing with daughter. No c/o pain only fatigue. Daughter stated that she needed to see the social worker palliative care for home O2 and get the prescriptions to go home today. Mental Status/Objective Patient Orientation: Person, Place, Time, Situation Therapy Code Descriptions/Definitions Functional [place] Measure: 0=Not Assessed/NA 4=Minimal Assistance 1=Total Assistance 5=Supervision or Setup 2=Maximal Assistance 6=Modified [place] 3=Moderate Assistance 7=Complete [place] ADL-Treatment Daughter had just finished giving pt a shower. Daughter donned briefs on pt in standing. Pt stabilized self with door and was able to lift each foot up to place into brief leg without LOB. Pt hiked over hips by self. Pt able to transfer by self without AE. Independent bed mobility. Daughter assisted pt donning socks. After therapy, pt lying in bed with call light/phone in reach. All needs met in room. Bathing (FIM): 4 Lower Body Dressing (FIM): 3 Transfers (B, C, W/C) (FIM): 7 Shower Transfer(FIM): 6 OT Short Term Goals Short Term Goals Transfers (B,C,W/C) (FIM): 6 1=Demonstrate adherence to instructed precautions during ADL tasks. 2=Patient will verbalize/demonstrate understanding of assistive devices/ modifications for ADL. 3=Patient will improve strength/tolerance for activity to enable patient to perform ADL's. OT Tea Bag Packer Goals Jail Goals Time Frame: Sep 04, 2018 Grooming(FIM): 6 Bathing(FIM): 5 Upper Body Dressing(FIM): 6 Lower Body Dressing(FIM): 6 Toileting(FIM): 6 Toilet/Commode Transfer(FIM): 6 Additional Goals: 1-Demonstrate ADL Tasks, 2-Verbalize Understanding, 3- ImproveStrength/[place] 1=Demonstrate adherence to instructed precautions during ADL tasks. 2=Patient will verbalize/demonstrate understanding of assistive devices/ modifications for ADL. 3=Patient will improve strength/tolerance for activity to enable patient to perform ADL's. OT Education/Plan Problem List/Assessment Pt demonstrates decreased ADL functioning, strength, and activity tolerance. Pt to benefit from skilled OT intervention for ADL training, transfers, and strengthening to increase level of independence and allow safe discharge home. Discharge Recommendations Plan/Recommendations: Continue POC Treatment Plan/Plan of Care Patient would benefit from OT for education, treatment and training to promote independence in ADL's, mobility, safety and/or upper extremity function for ADL' s. Plan of Care: ADL Retraining, Functional Mobility, UE Funct Exercise/Act Treatment Duration: Sep 04, 2018 Frequency: 5 times per week Estimated Hrs Per Day: .25 hour per day Rehab Potential: Fair Time/GCodes Start Time: 10:55 Stop Time: 11:05 Total Time Billed (hr/min): 10 Billed Treatment Time 1 visit-ADL 1 (10 min) ANABEL HANSEN Aug 31, 2018 11:11
--- NOTE | 2018-08-31 11:14 | Progress Note-Cardiology ---
Cardiology SOAP Progress Note Subjective: No new c/o. Family at the bedside. Objective: I&O/Vital Signs 08/31/18 08/31/18 08/31/18 08/31/18 00:10 01:00 02:55 03:45 Temp 97.5 96.1 Pulse 67 57 59 Resp 20 20 B/P (MAP) 166/66 (99) 153/73 (99) Pulse Ox 96 96 O2 Delivery High Flow N/C Nasal Cannula High Flow N/C O2 Flow Rate 4.00 4.00 4.00 08/31/18 08/31/18 07:00 08:00 Temp 97.8 Pulse 49 62 Resp 19 B/P (MAP) 159/72 (101) Pulse Ox 94 O2 Delivery High Flow N/C O2 Flow Rate 2.50 08/31/18 00:00 Intake Total 800 ml Output Total 200 ml Balance 600 ml Weight (Pounds): 204 Weight (Ounces): 6.0 Weight (Calculated Kilograms): 92.675333 Constitutional: AAO x 3, well-developed, well-nourished Respiratory: rhonchi (scattered), other (diminished lower lobes bilat) Cardiovascular: regular rate-rhythm; No JVD; S1 and S2, systolic murmur Gastrointestional: No tender; soft, round, audible bowel sounds Extremities: no lower extremity edema bilateral Neurologic/Psychiatric: grossly intact, power is 5/5 both on sides Skin: No rash, No ulcerations Results/Procedures: Labs Laboratory Tests 08/31/18 05:15: White Blood Count 14.8H, Red Blood Count 3.62L, Hemoglobin 12.4, Hematocrit 36, Mean Corpuscular Volume 99, Mean Corpuscular Hemoglobin 34, Mean Corpuscular Hemoglobin Concent 34, Red Cell Distribution Width 15.3H, Platelet Count 253, Mean Platelet Volume 9.0, Neutrophils (%) (Auto) 70, Lymphocytes (%) (Auto) 21, Monocytes (%) (Auto) 8, Eosinophils (%) (Auto) 0, Basophils (%) (Auto) 0, Neutrophils # (Auto) 10.4H, Lymphocytes # (Auto) 3.1, Monocytes # (Auto) 1.2H, Eosinophils # (Auto) 0.0, Basophils # (Auto) 0.0, Sodium Level 134L, Potassium Level 3.8, Chloride Level 101, Carbon Dioxide Level 22, Anion Gap 11, Blood Urea Nitrogen 21H, Creatinine 1.32H, Estimat Glomerular Filtration Rate 39, BUN/ Creatinine Ratio 16, Glucose Level 93, Calcium Level 8.4L, Phosphorus Level 3.6 , Magnesium Level 2.3 Microbiology 08/25/18 Blood Culture - Preliminary, Resulted No growth 08/25/18 Gram Stain - Final, Complete 08/25/18 Sputum Culture - Final, Complete Usual upper respiratory anjana 08/25/18 Urine Culture - Final, Complete Escherichia coli Laboratory Tests 08/30/18 05:35 08/31/18 05:15 A/P: Assessment: Dyspnea likely multi-factorial Pneumonia - management pre pulmonary services Lung mass seen on CT chest of 08-26-18 - management per pulmonary services Acute on chronic exacerbation of COPD Echo of 08/27/18: LVEF 60-65%, grade 1 guy dysfunction, PASP 25 mmHg H/O TIA Carotid stenosis- reported to have 50% bilat ICA stenoses on MRA of 2014 Hypertension Hyperlipidemia Tobaccoism - states quit a week ago Plan: * Ok to stop Plavix a week prior to bronchoscopy / biopsy (Bronch planned for per pulmonary services) * Pneumonia and COPD is being managed by pulmonary/medical services * Monitor labs * BP not well controlled - resume Lisinopril (home medications) without the HCTZ SHABBIR TAI Aug 31, 2018 11:14
[2018-08-31] MEDS ORDERED: lisINopril 20 MG (PRINIVIL) TABLET PO NR (11:15)
[2018-08-31] MEDS ORDERED: UMEC1BLS IH (11:18)
[2018-08-31] MEDS ORDERED: HYDR-700 PO (11:18)
[2018-08-31] MEDS ORDERED: PRD10T PO (11:18)
[2018-08-31] MEDS ORDERED: ALBU6.7H8 INH (11:18)
[2018-08-31] MEDS ORDERED: CEFD300C3 PO (11:18)
[2018-08-31] MEDS ORDERED: CLOP75TA69 PO (11:18)
[2018-08-31] MEDS ORDERED: AMLO5TAB9 PO (11:18)
--- NOTE | 2018-08-31 12:10 | NUR ---
PT DROPPED TO 88% ON ROOM AIR @ REST. REPLACED O2 @ 2 LPM. SPO2 INCREASED TO 91%.
[2018-08-31 12:59] VITALS: BP 163/70
[2018-08-31 13:01] VITALS: BP 163/70
--- NOTE | 2018-08-31 13:51 | Physical Therapy Progress Note ---
Therapy Progress Note Patient has refused x3 today. Her family member states that she will be discharging today and she has been ambulating in the hallway with her. SHARLENE CONNOR PT Aug 31, 2018 13:51
--- NOTE | 2018-08-31 15:08 | NUR ---
CM/SS, respond to consult. DME: New home O2 coordinated with daughter Anna preferred agency, [facility]. Portable has been delivered to hospital room for transport home, agency will arrange home setup with patient/family. Patient's family have scheduled so that someone will be with patient at all times for several days either in her home or theirs. No other needs identified at this time.
[2018-08-31 16:05] VITALS: BP 163/70
--- NOTE | 2018-08-31 20:42 | Discharge Instructions ---
Discharge Inst-[facility] Discharge Medications New, Converted or Re-Newed RX: Transmitted to Pharmacy New Medications: Cefdinir (Cefdinir) 300 Mg Capsule 300 MG PO BID, #14 CAP 0 Refills Hydroxyzine HCl (Hydroxyzine HCl) 25 Mg Tablet 25 MG PO TID PRN for ANXIETY, #30 TAB 0 Refills Umeclidinium Brm/Vilanterol Tr (Anoro Ellipta 62.5-25 Mcg INH) 1 Each Blst.w.dev 1 EACH IH DAILY, #1 INHALER 0 Refills Prednisone (Prednisone) 10 Mg Tab 0 PO UD, #20 TAB 0 Refills Take 4 tabs(40mg)daily, decrease by 1 tab(10mg) every other day. Changed Medications: Albuterol Sulfate (Proventil Hfa) 6.7 Gm Hfa.aer.ad 2 PUFF INH Q4H PRN for SHORTNESS OF BREATH, #1 INHALER 0 Refills (Changed from: Refills: ; Removed Instructions) Amlodipine Besylate (Amlodipine Besylate) 5 Mg Tablet 5 MG PO DAILY, #30 TAB 0 Refills (Changed from: Amlodipine Besylate 2.5 Mg Tablet 2.5 Mg PO DAILY) Clopidogrel Bisulfate (Plavix) 75 Mg Tablet 75 MG PO HS for 7 Days, TAB (Medication details modified) Hold plavix until after bronchoscopy on 09/08 Continued Medications: Aspirin (Aspirin EC) 81 Mg Tablet.dr 81 MG PO DAILY, TAB Atorvastatin Calcium (Lipitor) 10 Mg Tablet 10 MG PO HS, TAB Metoprolol Succinate (Metoprolol Succinate) 50 Mg Tab.er.24h 50 MG PO HS, TAB Discontinued Medications: Lisinopril/Hydrochlorothiazide (Lisinopril-Hctz 20-25 mg Tab) 1 Each Tablet 1 TAB PO HS, TAB Patient Instructions Goal/Follow Up Appt: Follow up with Dr. Huitron at [facility] on 09/06 at 9:40 am. Follow up with Dr. Torrez as directed- bronchoscopy planned for 09/08. Follow up with Cardiology as directed. Patient Instructions: Stop plavix until after bronchoscopy. Stop lisinopril/hydrochlorothiazide due to low sodium level. [facility]: Fever, inability to keep down medications, worsening shortness of breath Activity & Diet Discharge Diet: Cardiac Diet Activity as Tolerated: Yes Copy Copies To 1: HUKM SMITH MD, BETHANY N MD Aug 31, 2018 11:22
--- NOTE | 2018-08-31 20:47 | Discharge Summary ---
Diagnosis/Chief Complaint Date of Admission Aug 25, 2018 at 21:30 Date of Discharge Aug 31, 2018 at 16:05 Admission Diagnosis Admission Diagnosis See problem list Discharge Diagnosis See problem list Problems/Diagnosis: (1) UTI (urinary tract infection) Assessment & Plan: On zosyn for pneumonia, covers E coli UTI as well, discharged on cefdinir. Qualifiers: Qualified Codes: N30.00 - Acute cystitis without hematuria Status: Acute (2) COPD exacerbation Assessment & Plan: Pulmonology consulted, appreciate recommendations, on prednisone taper and zosyn and breathing treatments. D/C with supplemental oxygen, prednisone taper and cefepime as well as refill for albuterol and script for umeclidinium/vilanterol inhaler Status: Acute (3) Hyponatremia Assessment & Plan: Suspected related to hydrochlorothiazide and pneumonia. Improved but not normal. Continue to hold HCTZ. Stopped lisinopril/HCTZ on d/c. Status: Acute (4) Lung mass Assessment & Plan: Will need biopsy outpatient, per Dr. Torrez. Plan for 09/08. Status: Acute (5) Chronic renal insufficiency Assessment & Plan: Stable since 2014 Status: Chronic Chief Complaint/HPI Chief Complaint/HPI From Dr. Ceja's H&P- HPI: This is a 78yoWF clinic patient of [facility] Dr. Phillips who is a current smoker and has a hx of HTN, who presented to the ER with shortness of breath and weakness found to have sodium level of 119 likely due to Hydrochlorothiazide dosing and exacerbation of COPD and UTI. Pt was placed on Rocephin empirically. Currently pt is drowsy ABG revealed no CO2 narcosis and family is at the bedside in which the granddaughter is a nurse at [employer] previously at [place] [facility] and ICU. At this current time pt denies any pain. 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 At this current time Dr. Torrez ordered CT scan, likely will need a bronch and will be placed on 4th floor for IV antibiotics. We will reconcile all of her home meds and hold Hydrochlorothazide and maintain fluid restriction and normal saline IV fluid at 125 cc an hour. Discharge Summary-Simple/Stand Consultations Discharge Physical Examination Allergies: Coded Allergies: No Known Drug Allergies (Unverified , 1/12/15) Vitals & I&Os Vital Sign - Last 12Hours Date Time Temp Pulse Resp B/P (MAP) Pulse Ox O2 Delivery O2 Flow Rate FiO2 08/31/18 16:05 64 19 163/70 92 Nasal Cannula 2.00 08/31/18 13:01 97.8 08/25/18 23:50 28 Intake and Output 08/31/18 00:00 Intake Total 800 ml Output Total 200 ml Balance 600 ml General Appearance: Alert, No Acute Distress Respiratory: Clear to Auscultation, Normal Air Movement Cardiovascular: Regular Rate, No Murmurs Abdominal: Normal Bowel Sounds, Soft Neuro: Normal Speech Psych/Mental Status: Mental Status NL, Mood NL Hospital Course See final discharge diagnosis. Labs Laboratory Tests Test 08/30/18 05:35 08/31/18 05:15 Range/Units White Blood Count 14.3 H 14.8 H 4.3-11.0 10^3/uL Red Blood Count 3.59 L 3.62 L 4.35-5.85 10^6/uL Hemoglobin 12.1 12.4 11.5-16.0 G/DL Hematocrit 36 36 35-52 % Mean Corpuscular Volume 99 99 80-99 FL Mean Corpuscular Hemoglobin 34 34 25-34 PG Mean Corpuscular Hemoglobin Concent 34 34 32-36 G/DL Red Cell Distribution Width 14.9 H 15.3 H 10.0-14.5 % Platelet Count 212 253 130-400 10^3/uL Mean Platelet Volume 9.2 9.0 7.4-10.4 FL Neutrophils (%) (Auto) 73 70 42-75 % Lymphocytes (%) (Auto) 19 21 12-44 % Monocytes (%) (Auto) 8 8 0-12 % Eosinophils (%) (Auto) 0 0 0-10 % Basophils (%) (Auto) 0 0 0-10 % Neutrophils # (Auto) 10.3 H 10.4 H 1.8-7.8 X 10^3 Lymphocytes # (Auto) 2.7 3.1 1.0-4.0 X 10^3 Monocytes # (Auto) 1.2 H 1.2 H 0.0-1.0 X 10^3 Eosinophils # (Auto) 0.0 0.0 0.0-0.3 10^3/uL Basophils # (Auto) 0.0 0.0 0.0-0.1 10^3/uL Sodium Level 132 L 134 L 135-145 MMOL/L Potassium Level 3.9 3.8 3.6-5.0 MMOL/L Chloride Level 99 101 98-107 MMOL/L Carbon Dioxide Level 25 22 21-32 MMOL/L Anion Gap 8 11 5-14 MMOL/L Blood Urea Nitrogen 18 21 H 7-18 MG/DL Creatinine 1.34 H 1.32 H 0.60-1.30 MG/DL Estimat Glomerular Filtration Rate 38 39 BUN/Creatinine Ratio 13 16 Glucose Level 93 93 70-105 MG/DL Calcium Level 8.2 L 8.4 L 8.5-10.1 MG/DL Phosphorus Level 2.9 3.6 2.3-4.7 MG/DL Magnesium Level 2.1 2.3 1.8-2.4 MG/DL Radiology Reviewed NAME: TABATHA MARSHALL [facility] REC#: [id number] PT STATUS: ADM IN : 1940 PHYSICIAN: ISMAEL TORREZ DO ADMIT DATE: 08/25/18 Draft Date of Exam:08/27/18 CHEST 1 VIEW, AP/PA ONLY INDICATION: Shortness of breath. COMPARISON: 08/25/2018. FINDINGS: Portable chest shows minimal infiltrate and/or atelectasis developing in the left lung base since previous exam. Right lung is clear. Heart is upper limits of normal. There is no pulmonary edema. No pneumothorax or pleural effusion. IMPRESSION: Development of discoid atelectasis and/or infiltrate in the left lung base since previous exam. Dictated on workstation # [id number] Dict: 08/27/18 0851 Trans: 08/27/18 0907 [id number] Interpreted by: BABITA HODGES MD Electronically signed by: [facility] REC[facility] [id number] PT STATUS: ADM IN : 1940 PHYSICIAN: ISMAEL TORREZ DO ADMIT DATE: 08/25/18 Signed Date of Exam: 08/26/18 CT CHEST WO PROCEDURE: CT chest without contrast. TECHNIQUE: Multiple contiguous axial images were obtained through the chest without the use of intravenous contrast. INDICATION: Shortness of breath. COMPARISON: There are no prior CT chest examinations available for comparison. FINDINGS: Along the periphery of the right lower lobe, there is a 1.3 x 1.1 cm noncalcified smoothly marginated parenchymal lung mass. Even in retrospect, this finding could not be identified on the chest exam performed on 08/25/2018. However, I do feel that this density was most likely present on the prior chest exam of 07/10/2014. This finding was essentially obscured by the overlying breast tissue. It may be slightly larger than on the prior exam, and the possibility that this is neoplastic in nature should certainly be considered. I would recommend that PET/CT be performed for further evaluation. There is a second much smaller 0.5 x 0.5 cm rounded density just inferior to the larger nodule. This could also be further evaluated by PET/CT. No other parenchymal lung mass is identified. There are alveolar/interstitial infiltrates involving both lower lobes. Most likely, these are due to pneumonia/atelectasis. These were difficult to appreciate on the prior exam as well. There is no pleural effusion identified. The upper lungs are generally clear. The heart size is mildly enlarged. There are coronary artery calcifications evident. The aorta is not abnormally dilated. There is no obvious mediastinal or hilar adenopathy. The thyroid gland where visualized is unremarkable. There is no definite mass visualized within either breast. The sections through the upper abdomen show cholelithiasis but no evidence for acute cholecystitis. The left kidney also appears to be atrophic. The bone windows are unremarkable for a fracture or for a destructive lesion. IMPRESSION: 1. There is bibasilar pneumonia/atelectasis. There is no acute cardiopulmonary abnormality identified otherwise. 2. The parenchymal masses along the periphery of the right lung base are of uncertain etiology. The possibility that these are neoplastic in nature should certainly be considered, however. Recommendations as above. 3. There is cholelithiasis without evidence for acute cholecystitis. 4. Left kidney is atrophic. 5. These results were discussed with Dr. Ismael Torrez. Dictated by: Dictated on workstation # [id number] Dict: 08/26/18 0855 Trans: 08/26/18 1623 Interpreted by: RICKEY JUAREZ MD Electronically signed by: RICKEY JUAREZ MD 08/26/18 [id number] Discharge Instructions to patient/family Please see electronic discharge instructions given to patient. Discharge Medications Reviewed and agree with Discharge Medication list on patient's Discharge Instruction sheet Clinical Quality Measures DVT/VTE Risk/Contraindication: Risk Factor Score Per Nursin RFS Level Per Nursing on Admit: 4+=Very High Copy Copies To 1: KM PHILLIPS MD, BETHANY N MD Aug 31, 2018 20:47
[2018-09-01] MEDS ORDERED: lisINopril 20 MG (PRINIVIL) TABLET PO SCH (09:00)
== END 2018-08-31 16:05 | disposition home or self-care (01) | DRG 193 ==
LOC: EDUNIT# 20:12 → ER 20:13 → ICU 21:30 → 4TH 08-26 10:00
PROVIDERS: ADMIT Internal Medicine; ATTEND Internal Medicine
DX: J18.1 Lobar pneumonia, unspecified organism (principal); J96.21 Acute and chronic respiratory failure with hypoxia; J44.1 Chronic obstructive pulmonary disease with (acute) exacerbation; J44.0 Chronic obstructive pulmonary disease with (acute) lower respiratory infection; J98.11 Atelectasis; N30.00 Acute cystitis without hematuria; N17.9 Acute kidney failure, unspecified; E87.2 Acidosis; E87.1 Hypo-osmolality and hyponatremia; R04.2 Hemoptysis; R91.8 Other nonspecific abnormal finding of lung field; R59.1 Generalized enlarged lymph nodes; I12.9 Hypertensive chronic kidney disease with stage 1 through stage 4 chronic kidney disease, or unspecified chronic kidney disease; N18.9 Chronic kidney disease, unspecified; H35.30 Unspecified macular degeneration; E78.5 Hyperlipidemia, unspecified; Z99.81 Dependence on supplemental oxygen; Z86.73 Personal history of transient ischemic attack (TIA), and cerebral infarction without residual deficits; F17.200 Nicotine dependence, unspecified, uncomplicated; I65.23 Occlusion and stenosis of bilateral carotid arteries; B96.20 Unspecified Escherichia coli [E. coli] as the cause of diseases classified elsewhere
CPT/HCPCS: 36415; 71045; 71250; 80048; 80053; 81000; 82805; 83605; 83735; 83880; 84100; 84484; 85007; 85025; 85027; 85610; 85730; 87040; 87070; 87077; 87088; 87186; 87205; 87804; 93005; 93041; 93306; 94640; 94644; 94760; 94761; 96365; 96375

== ENCOUNTER 2018-09-06 05:42 | Outpatient (CLI) | payer MEDICARE ==
[~2018-09-06] VITALS: Ht 162.6 cm; Wt 92.7 kg
[~2018-09-06 05:42] MED LIST changes: +ALBU6.7H8 INH; +AMLO2.5T4 PO; +AMLO5TAB9 PO; +ASPI-983 PO; +ATOR10TA PO; +CEFD300C3 PO; +CLOP75TA69 PO; +HYDR-700 PO; +METO-370 PO; +PRD10T PO; +UMEC1BLS IH
== END 2018-09-06 14:39 | disposition home or self-care (01) ==
LOC: PREOP 05:42
PROVIDERS: ATTEND Internal Medicine Critical Care Medicine
DX: Z01.818 Encounter for other preprocedural examination (principal)

== ENCOUNTER 2018-09-08 07:42 | Day surgery (SDC) | payer MEDICARE ==
[~2018-09-08] VITALS: Ht 162.6 cm; Wt 92.7 kg
[2018-09-08] MEDS ORDERED: LIDOCAINE PF 1% 2 ML VIAL (OR ONLY) IJ ONE (07:43)
--- OUTSIDE RECORDS SUMMARY | 2018-09-08 07:47 | XMS REPORT | Continuity of Care Document ---
Author Author [facility] Address Unknown Phone Unavailable Allergies Active Description Code Type Severity Reaction Onset Reported/Identified Relationship to Patient Clinical Status Yes No Known Drug Allergies [id number] Drug Allergy Unknown N/A 09/06/2018 Medications There is no data. Problems Date [...] 729.82 CRAMP OF LIMB 10/07/2017 KM PHILLIPS MD Ot Z12.2 ENCNTR SCREEN FOR MALIGNANT NEOPLASM OF 08/27/2018 SRIDEVI MURDOCK DO Ot E78.5 HYPERLIPIDEMIA, UNSPECIFIED 08/27/2018 SRIDEVI MURDOCK DO Ot E87.1 HYPO-OSMOLALITY AND HYPONATREMIA 08/27/2018 SRIDEVI MURDOCK DO Ot E87.2 ACIDOSIS 08/27/2018 SRIDEVI MURDOCK DO Ot H35.30 UNSPECIFIED MACULAR DEGENERATION 08/27/2018 STEVEN MURDOCK DOI Ot I10 ESSENTIAL (PRIMARY) HYPERTENSION 08/27/2018 SRIDEVI MURDOCK DO Ot J44.1 CHRONIC OBSTRUCTIVE PULMONARY DISEASE W 08/27/2018 SRIDEVI MURDOCK DO Ot J96.21 ACUTE AND CHRONIC RESPIRATORY FAILURE [place] 08/27/2018 MURDOCK DO, SRIDEVI Ot N17.9 ACUTE KIDNEY FAILURE, UNSPECIFIED 08/27/2018 MURDOCK DO, SRIDEVI Ot R04.2 HEMOPTYSIS 08/27/2018 MURDOCK DO, SRIDEVI Ot R91.8 OTHER NONSPECIFIC ABNORMAL FINDING OF ROBERTO 08/27/2018 MURDOCK DO, SRIDEVI Ot Z86.73 PRSNL HX OF TIA (TIA), AND CEREB INFRC W 08/27/2018 MURDOCK DO, SRIDEVI Ot Z99.81 DEPENDENCE ON SUPPLEMENTAL OXYGEN 08/28/2018 MURDOCK DO, SRIDEVI Ot E78.5 HYPERLIPIDEMIA, UNSPECIFIED 08/28/2018 MURDOCK DO, SRIDEVI Ot E87.1 HYPO-OSMOLALITY AND HYPONATREMIA 08/28/2018 MURDOCK DO, SRIDEVI Ot E87.2 ACIDOSIS 08/28/2018 MURDOCK DO, SRIDEVI Ot H35.30 UNSPECIFIED MACULAR DEGENERATION 08/28/2018 MURDOCK DO, SRIDEVI Ot I10 ESSENTIAL (PRIMARY) HYPERTENSION 08/28/2018 MURDOCK DO, SRIDEVI Ot J44.1 CHRONIC OBSTRUCTIVE PULMONARY DISEASE W 08/28/2018 MURDOCK DO, SRIDEVI Ot J96.21 ACUTE AND CHRONIC RESPIRATORY FAILURE [place] 08/28/2018 MURDOCK DO, SRIDEVI Ot N17.9 ACUTE KIDNEY FAILURE, UNSPECIFIED 08/28/2018 MURDOCK DO, SRIDEVI Ot R04.2 HEMOPTYSIS 08/28/2018 MURDOCK DO, SRIDEVI Ot R91.8 OTHER NONSPECIFIC ABNORMAL FINDING OF ROBERTO 08/28/2018 MURDOCK DO, SRIDEVI Ot Z86.73 PRSNL HX OF TIA (TIA), AND CEREB INFRC W 08/28/2018 MURDOCK DO, SRIDEVI Ot Z99.81 DEPENDENCE ON SUPPLEMENTAL OXYGEN 08/29/2018 MURDOCK DO, SRIDEVI Ot E78.5 HYPERLIPIDEMIA, UNSPECIFIED 08/29/2018 MURDOCK DO, SRIDEVI Ot E87.1 HYPO-OSMOLALITY AND HYPONATREMIA 08/29/2018 MURDOCK DO, SRIDEVI Ot E87.2 ACIDOSIS 08/29/2018 MURDOCK DO, SRIDEVI Ot H35.30 UNSPECIFIED MACULAR DEGENERATION 08/29/2018 MURDOCK DO, RSIDEVI Ot I10 ESSENTIAL (PRIMARY) HYPERTENSION 08/29/2018 MURDOCK DO, SRIDEVI Ot J44.1 CHRONIC OBSTRUCTIVE PULMONARY DISEASE W 08/29/2018 MURDOCK DO, SRIDEVI Ot J96.21 ACUTE AND CHRONIC RESPIRATORY FAILURE [place] 08/29/2018 MURDOCK DO, SRIDEVI Ot N17.9 ACUTE KIDNEY FAILURE, UNSPECIFIED 08/29/2018 MURDOCK DO, SRIDEVI Ot R04.2 HEMOPTYSIS 08/29/2018 MURDOCK DO, SRIDEVI Ot R91.8 OTHER NONSPECIFIC ABNORMAL FINDING OF ROBERTO 08/29/2018 MURDOCK DO, SRIDEVI Ot Z86.73 PRSNL HX OF TIA (TIA), AND CEREB INFRC W 08/29/2018 MURDOCK DO, SRIDEVI Ot Z99.81 DEPENDENCE ON SUPPLEMENTAL OXYGEN 08/30/2018 MURDOCK DO, SRIDEVI Ot E78.5 HYPERLIPIDEMIA, UNSPECIFIED 08/30/2018 MURDOCK DO, SRIDEVI Ot E87.1 HYPO-OSMOLALITY AND HYPONATREMIA 08/30/2018 MURDOCK DO, SRIDEVI Ot E87.2 ACIDOSIS 08/30/2018 MURDOCK DO, SRIDEVI Ot H35.30 UNSPECIFIED MACULAR DEGENERATION 08/30/2018 MURDOCK DO, SRIDEVI Ot I10 ESSENTIAL (PRIMARY) HYPERTENSION 08/30/2018 MURDOCK DO, SRIDEVI Ot J44.1 CHRONIC OBSTRUCTIVE PULMONARY DISEASE W 08/30/2018 MURDOCK DO, SRIDEVI Ot J96.21 ACUTE AND CHRONIC RESPIRATORY FAILURE WI 08/30/2018 MURDOCK DO, SRIDEVI Ot N17.9 ACUTE KIDNEY FAILURE, UNSPECIFIED 08/30/2018 MURDOCK DO, SRIDEVI Ot R04.2 HEMOPTYSIS 08/30/2018 MURDOCK DO, SRIDEVI Ot R91.8 OTHER NONSPECIFIC ABNORMAL FINDING OF ROBERTO 08/30/2018 MURDOCK DO, SRIDEVI Ot Z86.73 PRSNL HX OF TIA (TIA), AND CEREB INFRC W 08/30/2018 MURDOCK DO, SRIDEVI Ot Z99.81 DEPENDENCE ON SUPPLEMENTAL OXYGEN 08/31/2018 MURDOCK DO, SRIDEVI Ot E78.5 HYPERLIPIDEMIA, UNSPECIFIED 08/31/2018 MURDOCK DO, SRIDEVI Ot E87.1 HYPO-OSMOLALITY AND HYPONATREMIA 08/31/2018 MURDOCK DO, SRIDEVI Ot E87.2 ACIDOSIS 08/31/2018 MURDOCK DO, SRIDEVI Ot H35.30 UNSPECIFIED MACULAR DEGENERATION 08/31/2018 MURDOCK DO, SRIDEVI Ot I10 ESSENTIAL (PRIMARY) HYPERTENSION 08/31/2018 MURDOCK DO, SRIDEVI Ot J44.1 CHRONIC OBSTRUCTIVE PULMONARY DISEASE W 08/31/2018 MURDOCK DO, SRIDEVI Ot J96.21 ACUTE AND CHRONIC RESPIRATORY FAILURE WI 08/31/2018 COLLETTE CAUSEY SRIDEVI Ot N17.9 ACUTE KIDNEY FAILURE, UNSPECIFIED 08/31/2018 COLLETTE DO SRIDEVI Ot R04.2 HEMOPTYSIS 08/31/2018 COLLETTE CAUSEY SRIDEVI Ot R91.8 OTHER NONSPECIFIC ABNORMAL FINDING OF ROBERTO 08/31/2018 COLLETTE DO SRIDEVI Ot Z86.73 PRSNL HX OF TIA (TIA), AND CEREB INFRC W 08/31/2018 COLLETTE CAUSEY SRIDEVI Ot Z99.81 DEPENDENCE ON SUPPLEMENTAL OXYGEN 08/31/2018 COLLETTE CAUSEY SRIDEVI Ot B96.20 UNSP ESCHERICHIA COLI THE CAUSE OF DI 08/31/2018 COLLETTE CAUSEY SRIDEVI Ot E78.5 HYPERLIPIDEMIA, UNSPECIFIED 08/31/2018 COLLETTE CAUSEY SRIDEVI Ot E87.1 HYPO-OSMOLALITY AND HYPONATREMIA 08/31/2018 COLLETTE CAUSEY SRIDEVI Ot E87.2 ACIDOSIS 08/31/2018 COLLETTE CAUSEY SRIDEVI Ot F17.200 NICOTINE DEPENDENCE, UNSPECIFIED, UNCOMP 08/31/2018 COLLETTE CAUSEY SRIDEVI Ot H35.30 UNSPECIFIED MACULAR DEGENERATION 08/31/2018 COLLETTE CAUSEY SRIDEVI Ot I12.9 HYPERTENSIVE CHRONIC KIDNEY DISEASE W ST 08/31/2018 COLLETTE CAUSEY SRIDEVI Ot 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 08/31/2018 COLLETTE CAUSEY SRIDEVI Ot J18.1 LOBAR PNEUMONIA, UNSPECIFIED ORGANISM 08/31/2018 COLLETTE CAUSEY SRIDEVI Ot J44.0 CHRONIC OBSTRUCTIVE PULMON DISEASE W ACU 08/31/2018 COLLETTE CAUSEY SRIDEVI Ot J44.1 CHRONIC OBSTRUCTIVE PULMONARY DISEASE W 08/31/2018 COLLETTE CAUSEY SRIDEVI Ot J96.21 ACUTE AND CHRONIC RESPIRATORY FAILURE [place] 08/31/2018 COLLETTE CAUSEY SRIDEVI Ot J98.11 ATELECTASIS 08/31/2018 COLLETTE CAUSEY SRIDEVI Ot N17.9 ACUTE KIDNEY FAILURE, UNSPECIFIED 08/31/2018 COLLETTE CAUSEY SRIDEVI Ot N18.9 CHRONIC KIDNEY DISEASE, UNSPECIFIED 08/31/2018 COLLETTE CAUSEY SRIDEVI Ot N30.00 ACUTE CYSTITIS WITHOUT HEMATURIA 08/31/2018 COLLETTE CAUSEY SRIDEVI Ot R04.2 HEMOPTYSIS 08/31/2018 STEVEN MURDOCK DOI Ot R59.1 GENERALIZED ENLARGED LYMPH NODES 08/31/2018 SRIDEVI MURDOCK DO Ot R91.8 OTHER NONSPECIFIC ABNORMAL FINDING OF ROBERTO 08/31/2018 SRIDEVI MURDOCK DO Ot Z86.73 PRSNL HX OF TIA (TIA), AND CEREB INFRC W 08/31/2018 STEVEN MURDOCK DOI Ot Z99.81 DEPENDENCE ON SUPPLEMENTAL OXYGEN 09/06/2018 ELMER DO LAURA Mora Ot Z01.818 ENCOUNTER FOR OTHER PREPROCEDURAL EXAMIN Procedures Code Description [place] [address] WART DESTRUCT 1-14 (CRYO) 01/03/2014 Results Test Result Range CMP - 05/14/17 08:51 GLUCOSE 84 mg/dL 65-99 UREA NITROGEN (BUN) 17 mg/dL 7-25 CREATININE 1.40 mg/dL 0.60-0.93 eGFR NON-AFR. CITIZEN OF [place] 37 mL/min/1.73m2 > OR=60 eGFR 42 mL/min/1.73m2 [...] 08/25/18 20:22 BNP level 79.5 pg/mL <100.0 Bacterial blood culture - 08/25/18 20:22 Bacterial blood culture NG [facility] Influenza virus A and B antigen detection - 08/25/18 20:29 FLU RESULT NEGATIVE FOR INFLUENZA A AND B ANTIGENS BY IA [facility] Sputum Gram stain - 08/25/18 20:32 Sputum Gram stain RELEVANT, INTERPRET WITH CAUTION. [facility] Bacterial sputum culture - 08/25/18 20:32 QUANTITY OF GROWTH . [facility] Bacterial sputum culture USUAL RESP [facility] Arterial blood gas measurement - 08/25/18 20:50 [...] NRG Measurement of body temperature 97.2 NRG Bacterial blood culture - 08/25/18 21:25 Bacterial blood culture NG NRG Complete urinalysis with reflex to culture - 08/25/18 22:20 Urine color determination YELLOW NRG Urine clarity determination SLIGHTLY CLOUDY NRG Urine pH measurement by test strip 6 5-9 Specific gravity of urine by test strip 1.020 1.016- 1.022 Urine protein assay by test strip, semi-quantitative 1+ NEGATIVE Urine glucose detection by automated test strip NEGATIVE NEGATIVE Erythrocytes detection in urine sediment by light microscopy 2+ NEGATIVE Urine ketones detection by automated test strip NEGATIVE NEGATIVE Urine nitrite detection by test strip NEGATIVE NEGATIVE Urine total bilirubin detection by test strip NEGATIVE NEGATIVE Urine urobilinogen measurement by automated test strip (mass/volume) NORMAL NORMAL Urine leukocyte esterase detection by dipstick 3+ NEGATIVE Automated urine sediment erythrocyte count by microscopy (number/high power field) [HPF] NRG Automated urine sediment leukocyte count by microscopy (number/high power field ) > [HPF] NRG Bacteria detection in urine sediment by light microscopy LARGE NRG Squamous epithelial cells detection in urine sediment by light microscopy 5-10 NRG Crystals detection in urine sediment by light microscopy NONE NRG Casts detection in urine sediment by light microscopy NONE NRG Mucus detection in urine sediment by light microscopy NEGATIVE NRG Complete urinalysis with reflex to culture CULTURE PENDING NRG Bacterial urine culture - 08/25/18 22:20 Bacterial urine culture [id number] NRG COLONY COUNT >100,000/ML NRG RML Sensitivity Panel - 08/25/18 22:20 Gentamicin susceptibility test by minimum inhibitory concentration < = NRG Trimethoprim/sulfamethoxazole susceptibility test by minimum inhibitoryconcentration <= NRG Levofloxacin susceptibility test by minimum inhibitory concentration <= NRG Ampicillin susceptibility test by minimum inhibitory concentration > NRG Cefazolin susceptibility test by minimum inhibitory concentration 2 NRG Ceftriaxone susceptibility test by minimum inhibitory concentration <= NRG Ciprofloxacin susceptibility test by minimum inhibitory concentration <= NRG Meropenem susceptibility test by minimum inhibitory concentration < = NRG Nitrofurantoin susceptibility test by minimum inhibitory concentration <= NRG Amoxicillin and clavulanate potassium susc CASIMIRO <= NRG Complete blood count (CBC) with automated white blood cell (WBC) differential - 08/26/18 03:20 Blood leukocytes automated count (number/volume) 6.7 10*3/uL 4.3-11.0 Blood erythrocytes automated count (number/volume) 3.64 10*6/uL 4.35-5.85 Venous blood hemoglobin measurement (mass/volume) 12.6 g/dL 11.5-16.0 Blood hematocrit (volume fraction) 35 % 35-52 Automated erythrocyte mean corpuscular volume 95 [foz_us] 80-99 Automated erythrocyte mean corpuscular hemoglobin (mass per erythrocyte) 35 pg 25-34 Automated erythrocyte mean corpuscular hemoglobin concentration measurement ( mass/volume) 37 g/dL 32-36 Automated erythrocyte distribution width ratio 14.8 % 10.0-14.5 Automated blood platelet count (count/volume) 167 10*3/uL 130-400 Automated blood platelet mean volume measurement 9.5 [foz_us] 7.4-10.4 Automated blood neutrophils/100 leukocytes 90 % 42-75 Automated blood lymphocytes/100 leukocytes 7 % 12-44 Blood monocytes/100 leukocytes 2 % 0-12 Automated blood eosinophils/100 leukocytes 0 % 0-10 Automated blood basophils/100 leukocytes 0 % 0-10 Blood neutrophils automated count (number/volume) 6.0 10*3 1.8-7.8 Blood lymphocytes automated count (number/volume) 0.5 10*3 1.0-4.0 Blood monocytes automated count (number/volume) 0.2 10*3 0.0-1.0 Automated eosinophil count 0.0 10*3/uL 0.0-0.3 Automated blood basophil count (count/volume) 0.0 10*3/uL 0.0-0.1 Blood manual differential performed detection - 08/26/18 03:20 Blood monocytes/100 leukocytes 1 % NRG Manual blood segmented neutrophils/100 leukocytes 91 % NRG Blood band neutrophils/100 leukocytes 0 % [facility] Manual blood lymphocytes/100 leukocytes 8 % [facility] Manual eosinophils/100 leukocytes in nose 0 % [facility] Manual blood basophils/100 leukocytes 0 % [facility] Blood anisocytosis detection by light microscopy SLIGHT [facility] Comprehensive metabolic panel - 08/26/18 03:20 Serum or plasma sodium measurement (moles/volume) 120 mmol/L 135-145 Serum or plasma potassium measurement (moles/volume) 3.7 mmol/L 3.6-5.0 Serum or plasma chloride measurement (moles/volume) 87 mmol/L 98-107 Carbon dioxide 16 mmol/L 21-32 Serum or plasma anion gap determination (moles/volume) 17 mmol/L 5-14 Serum or plasma urea nitrogen measurement (mass/volume) 23 mg/dL 7-18 Serum or plasma creatinine measurement (mass/volume) 1.87 mg/dL 0.60-1.30 Serum or plasma urea nitrogen/creatinine mass ratio 12 [facility] Serum or plasma creatinine measurement with calculation of estimated glomerular filtration rate 26 [facility] Serum or plasma glucose measurement (mass/volume) 221 mg/dL 70-105 Serum or plasma calcium measurement (mass/volume) 8.3 mg/dL 8.5-10.1 Serum or plasma total bilirubin measurement (mass/volume) 0.5 mg/dL 0.1-1.0 Serum or plasma alkaline phosphatase measurement (enzymatic activity/volume) 86 U/L 40-136 Serum or plasma aspartate aminotransferase measurement (enzymatic activity/ volume) 29 U/L 5-34 Serum or plasma alanine aminotransferase measurement (enzymatic activity/volume ) 12 U/L 0-55 Serum or plasma protein measurement (mass/volume) 6.4 g/dL 6.4-8.2 Serum or plasma albumin measurement (mass/volume) 3.5 g/dL 3.2-4.5 CALCIUM CORRECTED 8.7 mg/dL 8.5-10.1 Complete blood count (CBC) with automated white blood cell (WBC) differential - 08/27/18 06:23 Blood leukocytes automated count (number/volume) 15.1 10*3/uL 4.3-11.0 Blood erythrocytes automated count (number/volume) 3.40 10*6/uL 4.35-5.85 Venous blood hemoglobin measurement (mass/volume) 11.7 g/dL 11.5-16.0 Blood hematocrit (volume fraction) 33 % 35-52 Automated erythrocyte mean corpuscular volume 97 [foz_us] 80-99 Automated erythrocyte mean corpuscular hemoglobin (mass per erythrocyte) 34 pg 25-34 Automated erythrocyte mean corpuscular hemoglobin concentration measurement ( mass/volume) 35 g/dL 32-36 Automated erythrocyte distribution width ratio 14.8 % 10.0-14.5 Automated blood platelet count (count/volume) 159 10*3/uL 130-400 Automated blood platelet mean volume measurement 10.0 [foz_us] 7.4-10.4 Automated blood neutrophils/100 leukocytes 90 % 42-75 Automated blood lymphocytes/100 leukocytes 5 % 12-44 Blood monocytes/100 leukocytes 4 % 0-12 Automated blood eosinophils/100 leukocytes 0 % 0-10 Automated blood basophils/100 leukocytes 0 % 0-10 Blood neutrophils automated count (number/volume) 13.6 10*3 1.8-7.8 Blood lymphocytes automated count (number/volume) 0.8 10*3 1.0-4.0 Blood monocytes automated count (number/volume) 0.7 10*3 0.0-1.0 Automated eosinophil count 0.0 10*3/uL 0.0-0.3 Automated blood basophil count (count/volume) 0.0 10*3/uL 0.0-0.1 Serum or plasma troponin i.cardiac measurement (mass/volume) - 08/27/18 06:23 Serum or plasma troponin i.cardiac measurement (mass/volume) 0.049 ng/mL <0.028 Whole blood basic metabolic panel - 08/27/18 06:23 Serum or plasma sodium measurement (moles/volume) 128 mmol/L 135-145 Serum or plasma potassium measurement (moles/volume) 4.0 mmol/L 3.6-5.0 Serum or plasma chloride measurement (moles/volume) 97 mmol/L 98-107 Carbon dioxide 20 mmol/L 21-32 Serum or plasma anion gap determination (moles/volume) 11 mmol/L 5-14 Serum or plasma urea nitrogen measurement (mass/volume) 18 mg/dL 7-18 Serum or plasma creatinine measurement (mass/volume) 1.24 mg/dL 0.60-1.30 Serum or plasma urea nitrogen/creatinine mass ratio 15 NRG Serum or plasma creatinine measurement with calculation of estimated glomerular filtration rate 42 NRG Serum or plasma glucose measurement (mass/volume) 186 mg/dL 70-105 Serum or plasma calcium measurement (mass/volume) 8.3 mg/dL 8.5-10.1 Serum or plasma phosphate measurement (mass/volume) - 08/27/18 06:23 Serum or plasma phosphate measurement (mass/volume) 2.3 mg/dL 2.3-4.7 Magnesium - 08/27/18 06:23 Magnesium 1.7 mg/dL 1.8-2.4 Serum or plasma lithium measurement (moles/volume) - 08/27/18 06:23 BNP level 778.7 pg/mL <100.0 Complete blood count (CBC) with automated white blood cell (WBC) differential - 08/28/18 05:58 Blood leukocytes automated count (number/volume) 14.3 10*3/uL 4.3-11.0 Blood erythrocytes automated count (number/volume) 3.32 10*6/uL 4.35-5.85 Venous blood hemoglobin measurement (mass/volume) 11.3 g/dL 11.5-16.0 Blood hematocrit (volume fraction) 33 % 35-52 Automated erythrocyte mean corpuscular volume 99 [foz_us] 80-99 Automated erythrocyte mean corpuscular hemoglobin (mass per erythrocyte) 34 pg 25-34 Automated erythrocyte mean corpuscular hemoglobin concentration measurement ( mass/volume) 35 g/dL 32-36 Automated erythrocyte distribution width ratio 15.2 % 10.0-14.5 Automated blood platelet count (count/volume) 184 10*3/uL 130-400 Automated blood platelet mean volume measurement 9.6 [foz_us] 7.4-10.4 Automated blood neutrophils/100 leukocytes 89 % 42-75 Automated blood lymphocytes/100 leukocytes 7 % 12-44 Blood monocytes/100 leukocytes 4 % 0-12 Automated blood eosinophils/100 leukocytes 0 % 0-10 Automated blood basophils/100 leukocytes 0 % 0-10 Blood neutrophils automated count (number/volume) 12.8 10*3 1.8-7.8 Blood lymphocytes automated count (number/volume) 0.9 10*3 1.0-4.0 Blood monocytes automated count (number/volume) 0.6 10*3 0.0-1.0 Automated eosinophil count 0.0 10*3/uL 0.0-0.3 Automated blood basophil count (count/volume) 0.0 10*3/uL 0.0-0.1 Whole blood basic metabolic panel - 08/28/18 05:58 Serum or plasma sodium measurement (moles/volume) 131 mmol/L 135-145 Serum or plasma potassium measurement (moles/volume) 4.1 mmol/L 3.6-5.0 Serum or plasma chloride measurement (moles/volume) 99 mmol/L 98-107 Carbon dioxide 20 mmol/L 21-32 Serum or plasma anion gap determination (moles/volume) 12 mmol/L 5-14 Serum or plasma urea nitrogen measurement (mass/volume) 15 mg/dL 7-18 Serum or plasma creatinine measurement (mass/volume) 1.29 mg/dL 0.60-1.30 Serum or plasma urea nitrogen/creatinine mass ratio 12 NRG Serum or plasma creatinine measurement with calculation of estimated glomerular filtration rate 40 NRG Serum or plasma glucose measurement (mass/volume) 150 mg/dL 70-105 Serum or plasma calcium measurement (mass/volume) 8.3 mg/dL 8.5-10.1 Serum or plasma phosphate measurement (mass/volume) - 08/28/18 05:58 Serum or plasma phosphate measurement (mass/volume) 2.6 mg/dL 2.3-4.7 Magnesium - 08/28/18 05:58 Magnesium 1.6 mg/dL 1.8-2.4 Whole blood basic metabolic panel - 08/29/18 06:12 Serum or plasma sodium measurement (moles/volume) 132 mmol/L 135-145 Serum or plasma potassium measurement (moles/volume) 3.7 mmol/L 3.6-5.0 Serum or plasma chloride measurement (moles/volume) 98 mmol/L 98-107 Carbon dioxide 26 mmol/L 21-32 Serum or plasma anion gap determination (moles/volume) 8 mmol/L 5-14 Serum or plasma urea nitrogen measurement (mass/volume) 15 mg/dL 7-18 Serum or plasma creatinine measurement (mass/volume) 1.34 mg/dL 0.60-1.30 Serum or plasma urea nitrogen/creatinine mass ratio 11 NRG Serum or plasma creatinine measurement with calculation of estimated glomerular filtration rate 38 NRG Serum or plasma glucose measurement (mass/volume) 109 mg/dL 70-105 Serum or plasma calcium measurement (mass/volume) 8.3 mg/dL 8.5-10.1 Serum or plasma phosphate measurement (mass/volume) - 08/29/18 06:12 Serum or plasma phosphate measurement (mass/volume) 3.1 mg/dL 2.3-4.7 Magnesium - 08/29/18 06:12 Magnesium 2.1 mg/dL 1.8-2.4 Complete blood count (CBC) with automated white blood cell (WBC) differential - 08/29/18 06:19 Blood leukocytes automated count (number/volume) 13.8 10*3/uL 4.3-11.0 Blood erythrocytes automated count (number/volume) 3.35 10*6/uL 4.35-5.85 Venous blood hemoglobin measurement (mass/volume) 11.6 g/dL 11.5-16.0 Blood hematocrit (volume fraction) 33 % 35-52 Automated erythrocyte mean corpuscular volume 98 [foz_us] 80-99 Automated erythrocyte mean corpuscular hemoglobin (mass per erythrocyte) 35 pg 25-34 Automated erythrocyte mean corpuscular hemoglobin concentration measurement ( mass/volume) 35 g/dL 32-36 Automated erythrocyte distribution width ratio 15.3 % 10.0-14.5 Automated blood platelet count (count/volume) 196 10*3/uL 130-400 Automated blood platelet mean volume measurement 9.3 [foz_us] 7.4-10.4 Automated blood neutrophils/100 leukocytes 80 % 42-75 Automated blood lymphocytes/100 leukocytes 13 % 12-44 Blood monocytes/100 leukocytes 7 % 0-12 Automated blood eosinophils/100 leukocytes 0 % 0-10 Automated blood basophils/100 leukocytes 0 % 0-10 Blood neutrophils automated count (number/volume) 11.0 10*3 1.8-7.8 Blood lymphocytes automated count (number/volume) 1.8 10*3 1.0-4.0 Blood monocytes automated count (number/volume) 1.0 10*3 0.0-1.0 Automated eosinophil count 0.0 10*3/uL 0.0-0.3 Automated blood basophil count (count/volume) 0.0 10*3/uL 0.0-0.1 Complete blood count (CBC) with automated white blood cell (WBC) differential - 08/30/18 05:35 Blood leukocytes automated count (number/volume) 14.3 10*3/uL 4.3-11.0 Blood erythrocytes automated count (number/volume) 3.59 10*6/uL 4.35-5.85 Venous blood hemoglobin measurement (mass/volume) 12.1 g/dL 11.5-16.0 Blood hematocrit (volume fraction) 36 % 35-52 Automated erythrocyte mean corpuscular volume 99 [foz_us] 80-99 Automated erythrocyte mean corpuscular hemoglobin (mass per erythrocyte) 34 pg 25-34 Automated erythrocyte mean corpuscular hemoglobin concentration measurement ( mass/volume) 34 g/dL 32-36 Automated erythrocyte distribution width ratio 14.9 % 10.0-14.5 Automated blood platelet count (count/volume) 212 10*3/uL 130-400 Automated blood platelet mean volume measurement 9.2 [foz_us] 7.4-10.4 Automated blood neutrophils/100 leukocytes 73 % 42-75 Automated blood lymphocytes/100 leukocytes 19 % 12-44 Blood monocytes/100 leukocytes 8 % 0-12 Automated blood eosinophils/100 leukocytes 0 % 0-10 Automated blood basophils/100 leukocytes 0 % 0-10 Blood neutrophils automated count (number/volume) 10.3 10*3 1.8-7.8 Blood lymphocytes automated count (number/volume) 2.7 10*3 1.0-4.0 Blood monocytes automated count (number/volume) 1.2 10*3 0.0-1.0 Automated eosinophil count 0.0 10*3/uL 0.0-0.3 Automated blood basophil count (count/volume) 0.0 10*3/uL 0.0-0.1 Whole blood basic metabolic panel - 08/30/18 05:35 Serum or plasma sodium measurement (moles/volume) 132 mmol/L 135-145 Serum or plasma potassium measurement (moles/volume) 3.9 mmol/L 3.6-5.0 Serum or plasma chloride measurement (moles/volume) 99 mmol/L 98-107 Carbon dioxide 25 mmol/L 21-32 Serum or plasma anion gap determination (moles/volume) 8 mmol/L 5-14 Serum or plasma urea nitrogen measurement (mass/volume) 18 mg/dL 7-18 Serum or plasma creatinine measurement (mass/volume) 1.34 mg/dL 0.60-1.30 Serum or plasma urea nitrogen/creatinine mass ratio 13 NRG Serum or plasma creatinine measurement with calculation of estimated glomerular filtration rate 38 NRG Serum or plasma glucose measurement (mass/volume) 93 mg/dL 70-105 Serum or plasma calcium measurement (mass/volume) 8.2 mg/dL 8.5-10.1 Serum or plasma phosphate measurement (mass/volume) - 08/30/18 05:35 Serum or plasma phosphate measurement (mass/volume) 2.9 mg/dL 2.3-4.7 Magnesium - 08/30/18 05:35 Magnesium 2.1 mg/dL 1.8-2.4 Complete blood count (CBC) with automated white blood cell (WBC) differential - 08/31/18 05:15 Blood leukocytes automated count (number/volume) 14.8 10*3/uL 4.3-11.0 Blood erythrocytes automated count (number/volume) 3.62 10*6/uL 4.35-5.85 Venous blood hemoglobin measurement (mass/volume) 12.4 g/dL 11.5-16.0 Blood hematocrit (volume fraction) 36 % 35-52 Automated erythrocyte mean corpuscular volume 99 [foz_us] 80-99 Automated erythrocyte mean corpuscular hemoglobin (mass per erythrocyte) 34 pg 25-34 Automated erythrocyte mean corpuscular hemoglobin concentration measurement ( mass/volume) 34 g/dL 32-36 Automated erythrocyte distribution width ratio 15.3 % 10.0-14.5 Automated blood platelet count (count/volume) 253 10*3/uL 130-400 Automated blood platelet mean volume measurement 9.0 [foz_us] 7.4-10.4 Automated blood neutrophils/100 leukocytes 70 % 42-75 Automated blood lymphocytes/100 leukocytes 21 % 12-44 Blood monocytes/100 leukocytes 8 % 0-12 Automated blood eosinophils/100 leukocytes 0 % 0-10 Automated blood basophils/100 leukocytes 0 % 0-10 Blood neutrophils automated count (number/volume) 10.4 10*3 1.8-7.8 Blood lymphocytes automated count (number/volume) 3.1 10*3 1.0-4.0 Blood monocytes automated count (number/volume) 1.2 10*3 0.0-1.0 Automated eosinophil count 0.0 10*3/uL 0.0-0.3 Automated blood basophil count (count/volume) 0.0 10*3/uL 0.0-0.1 Whole blood basic metabolic panel - 08/31/18 05:15 Serum or plasma sodium measurement (moles/volume) 134 mmol/L 135-145 Serum or plasma potassium measurement (moles/volume) 3.8 mmol/L 3.6-5.0 Serum or plasma chloride measurement (moles/volume) 101 mmol/L 98-107 Carbon dioxide 22 mmol/L 21-32 Serum or plasma anion gap determination (moles/volume) 11 mmol/L 5-14 Serum or plasma urea nitrogen measurement (mass/volume) 21 mg/dL 7-18 Serum or plasma creatinine measurement (mass/volume) 1.32 mg/dL 0.60-1.30 Serum or plasma urea nitrogen/creatinine mass ratio 16 NRG Serum or plasma creatinine measurement with calculation of estimated glomerular filtration rate 39 NRG Serum or plasma glucose measurement (mass/volume) 93 mg/dL 70-105 Serum or plasma calcium measurement (mass/volume) 8.4 mg/dL 8.5-10.1 Serum or plasma phosphate measurement (mass/volume) - 08/31/18 05:15 Serum or plasma phosphate measurement (mass/volume) 3.6 mg/dL 2.3-4.7 Magnesium - 08/31/18 05:15 Magnesium 2.3 mg/dL 1.8-2.4 Encounters ACCT No. Visit Date/Time Discharge Status Pt. Type Provider Facility Loc./Unit Complaint [id number] 08/05/2014 12:06:00 08/05/2014 23:59:59 CLS Outpatient KM PHILLIPS MD [id number] 01/03/2014 08:12:00 01/03/2014 23:59:59 CLS Outpatient NIKKY MCDONALD DO [id number] 12/20/2013 13:27:00 12/20/2013 23:59:59 [place] [id number] 09/06/2018 09:40:00 ACT Outpatient KM PHILLIPS MD [facility] [id number] 05/14/2017 08:40:00 Document Registration [id number] 09/06/2018 05:42:00 09/06/2018 14:39:00 DIS Outpatient LAURA PAYNE DO [facility] PREOP EBUS [id number] 08/25/2018 21:30:00 08/31/2018 16:05:00 DIS Inpatient SRIDEVI MURDOCK DO [facility] 4TH COPD EXACERBATION, HYPONATREMIA [id number] 10/12/2017 13:15:00 10/12/2017 23:59:59 CLS Preadmit ALAN PATEL, KM Rocha [facility] RAD CHEST PAIN,NEW SOB,NEW COUGH [id number] 05/26/2017 11:17:00 05/26/2017 23:59:59 CLS Preadmit HOLLAND TURPIN [facility] RAD E63.9 CVA [id number] 05/26/2017 11:15:00 05/26/2017 23:59:59 CLS Preadmit HOLLAND TURPIN Via [facility] I63.9 CVA [id number] 10/27/2016 10:00:00 10/27/2016 23:59:59 CLS Preadmit ADILSON STEINER MD [facility] CARD I63.9,I65.29,I10 [id number] 07/10/2014 22:16:00 07/12/2014 15:05:00 DIS Inpatient ALAN PATEL, KM Rocha [facility] 4TH RIGHT SIDED WEAKNESS AND FACIAL DROOP;HYPERTENSIVE [id number] 09/08/2018 08:30:00 PEN Preadmit LAURA PAYNE DO [facility] ENDO COPD
[2018-09-08] MEDS ORDERED: LACTATED RINGERS 1,000 ML IV ONE (07:52)
[2018-09-08] MEDS ORDERED: LACTATED RINGERS 1,000 ML IV STA (07:56)
[2018-09-08 08:31] VITALS: BP 140/76
[2018-09-08] MEDS ORDERED: DEXAMETHASONE 10 MG/ML (DECADRON) 1 ML VIAL ONE (08:52)
[2018-09-08] MEDS ORDERED: proPOfol 200 MG/20 ML (DIPRIVAN) VIAL IV ONE (08:52)
[2018-09-08] MEDS ORDERED: ONDANSETRON 4 MG/2 ML (SDV) Z0FRAN ONE (08:52)
[2018-09-08] MEDS ORDERED: GLYCOPYRROLATE 0.2 MG/ML (ROBINUL) 2 ML VIAL ONE ×2 (08:52→10:12)
[2018-09-08] MEDS ORDERED: fentaNYL INJECTION 100 MCG/2 ML AMP ONE (08:52)
[2018-09-08] MEDS ORDERED: ROCURONIUM 10 MG/ML 5 ML SYRINGE IV ONE ×2 (08:53→09:37)
[2018-09-08] MEDS ORDERED: NEOSTIGMINE 1 MG/ML 5 ML SYRINGE ONE (08:53)
[2018-09-08] MEDS ORDERED: LIDOCAINE PF 2% 5 ML (XYLOCAINE) VIAL ONE (08:54)
[2018-09-08] MEDS ORDERED: ATROPINE INJ 0.4 MG/ML SDV ONE (09:51)
[2018-09-08] MEDS ORDERED: ONDANSETRON 4 MG/2 ML (SDV) Z0FRAN IVP PRN (10:30)
[2018-09-08] MEDS ORDERED: fentaNYL INJECTION 100 MCG/2 ML AMP IVP ONE (10:30)
[2018-09-08] MEDS ORDERED: morphine INJ 10 MG/ML 1ML (SYR OR VIAL) IVP ONE (10:30)
--- NOTE | 2018-09-08 10:30 | Anesthesia-General Post-Op ---
General Patient Condition Mental Status/LOC: Same as Preop Cardiovascular: Satisfactory Nausea/Vomiting: Absent Respiratory: Satisfactory Pain: Controlled Complications: Absent Post Op Complications Complications None Follow Up Care/Instructions Patient Instructions None needed. Anesthesia/Patient Condition Patient Condition Patient is doing well, no complaints, stable vital signs, no apparent adverse anesthesia problems. No complications reported per nursing. ERINN LAWRENCE CRNA Sep 08, 2018 10:30
--- NOTE | 2018-09-08 11:10 | Diagnostic Imaging Report ---
INDICATION: Status post bronchoscopy. TIME OF EXAMINATION: 10:58 AM. COMPARISON: 08/27/2018. FINDINGS: The heart is enlarged. No pneumothorax is seen status post bronchoscopy. There are some generalized interstitial changes noted. No effusion is seen. IMPRESSION: No evidence of pneumothorax. Dictated by: Dictated on workstation # [id number]
[2018-09-08 11:40] VITALS: BP 134/71
--- NOTE | 2018-09-08 11:44 | Diagnostic Imaging Report ---
INDICATION: Fluoroscopy during bronchoscopy. FINDINGS: Fluoroscopy was provided for Dr. Torrez during bronchoscopy. 15 seconds of fluoroscopy was utilized. IMPRESSION: Fluoroscopy for bronchoscopy. Dictated by: Dictated on workstation # [id number]
[2018-09-08 12:10] VITALS: BP 131/71
--- NOTE | 2018-09-08 12:10 | NUR ---
1140 PT RECEIVED FROM PAR RN TO ENDO RM #7. PT A/O X4. COLOR PALE, SKIN W/D. RESP. EVEN AND UNLABORED ON O2 AT 4L/NC. HR 45bpm/SOA2 89%. PT DENIES PAIN OR DISCOMFORT. FAMILY AT BEDSIDE; CALL LIGHT WITHIN REACH. WILL CONT. TO MONITOR. 1210 PT CONT. WITH LOW HR IN 42-48 bpm. O2 CONT. PER N/C @ 4L; SAO2 86-89%. DR. PAYNE CALLED AND NOTIFIED OF PT HR AND SAO2 LEVEL. INFORMED THIS RN IS UNABLE TO WEAN PT FROM O2 WITHOUT SAO2 DROPPING TO LOW 80'S. INFORMED RN TO CONTINUE TO MONITOR PT AND HE WILL COME EVALUATE PT AFTER MEETING. 1300 PT CONT. RESTING COMFORTABLY; NO CHANGE IN ASSESSMENT. HR CONT. 45-49 bpm WITH SAO2 IN LOW 90's ON 4L/NC. MONITORING WILL CONT. STILL WAITING FOR DR. PAYNE TO COME ASSESS PT. 1335 DR. PAYNE HERE; PT ASSESSED. ORDERS GIVEN TO AMBULATE PT WITH PORTABLE O2 AND MONITOR HR AND SAO2 WITH AMBULATION. 1345 PT UP AMBULATING WITH PORTABLY O2; SAO2 88%. HR 70'S. 1355 DR. PAYNE INFORMED; ORDER GIVEN TO DC PT. 1400 PT DC TO PER ORDERS. INSTRUCTIONS GIVEN AND EXPLAINED. PT AND ADULT DAUGHTER VOICED UNDERSTANDING.
[2018-09-08 13:00] VITALS: BP 136/76
--- NOTE | 2018-09-08 13:36 | Pulmonary Procedures ---
Pulmonary Procedures Date of Procedure Date of Service: Sep 08, 2018 Bronch Bronchoscopy with EBUS, and fluoroscopy. Bilateral wash, RLL BAL, darshan brush x 2, transbronchial RLL brushx 2 , EBUS was used to US mediastinum however no lymphnodes were large enough to bx. Preop DX: lung mass PostOP DX: No endobronchial lesion. No lymphnodes large enough to bx Complications: None Pt was sedated per anesthesia. Bronchoscopy was advanced through the Et tube and an anatomical undertaken down to the segmental bronchi bilaterally. No endobronchial lesions noted. EBUS was then advanced through ET tube and the mediastinum was US. Bilateral wash, RLL BAL, dasrhan brush x 2, transbronchial RLL brushx 2 , EBUS was used to US mediastinum however no lymph nodes were large enough to bx. Pt tolerated procedure well. No complications noted. LAURA PAYNE DO Sep 08, 2018 13:36
[2018-09-08 14:00] VITALS: BP 131/55
[2018-09-08 14:15] VITALS: BP 131/55
== END 2018-09-08 14:15 | disposition home or self-care (01) ==
LOC: ENDO 07:42
PROVIDERS: ATTEND Internal Medicine Critical Care Medicine
DX: R91.8 Other nonspecific abnormal finding of lung field (principal); R59.0 Localized enlarged lymph nodes; H35.30 Unspecified macular degeneration; I10 Essential (primary) hypertension; J44.9 Chronic obstructive pulmonary disease, unspecified; E66.9 Obesity, unspecified; Z68.35 Body mass index [BMI] 35.0-35.9, adult; Z87.81 Personal history of (healed) traumatic fracture; Z87.01 Personal history of pneumonia (recurrent); Z79.899 Other long term (current) drug therapy; Z79.82 Long term (current) use of aspirin; Z79.01 Long term (current) use of anticoagulants
CPT/HCPCS: 71045; 87015; 87070; 87101; 87116; 87205; 87206

== ENCOUNTER → 2018-09-14 | Outpatient (CLI) | payer MEDICARE ==
--- NOTE | 2018-09-14 13:28 | Diagnostic Imaging Report ---
INDICATION: Right lower lobe lung mass and mediastinal lymphadenopathy. TECHNIQUE: Serum blood glucose level at the time of injection was 93 mg/dL. Patient was administered 12.4 mCi of F-18 FDG intravenously in the right hand and PET imaging was performed from the top of the skull to mid thighs. Noncontrast CT was also performed for attenuation correction and anatomic correlation. COMPARISON: Comparison is made with CT chest from 08/26/2018. FINDINGS: There is symmetric activity throughout the brain. Soft tissues of the neck are unremarkable. No mediastinal or hilar hypermetabolism is seen. No abnormal hypermetabolic foci within the lung parenchyma are identified apart from minimal low-level activity in the posterior right lower lobe suggestive of pneumonia. Specifically, the nodules along the periphery of the right mid and lower lung field are not hypermetabolic. Abdomen and pelvis demonstrates physiologic activity within the GI and tracts. IMPRESSION: Essentially unremarkable PET study. The circumscribed nodules along the periphery of the right lung are not hypermetabolic. No hypermetabolic mediastinal or hilar lymphadenopathy is identified. Dictated by: Dictated on workstation # [id number]
== END ==
LOC: RAD 07:55
PROVIDERS: ATTEND Internal Medicine Critical Care Medicine
DX: R91.8 Other nonspecific abnormal finding of lung field (principal); R59.0 Localized enlarged lymph nodes

== ENCOUNTER → 2018-09-22 | Outpatient (CLI) | payer MEDICARE ==
[~2018-09-22] MED LIST changes: +RT-ALBUTEROL SULF 2.5 MG/3 ML PRE-MIX VIAL INH ONE; +RT-ALBUTEROL SULF 2.5 MG/3 ML PRE-MIX VIAL ONE
== END ==
LOC: RT 09:27
PROVIDERS: ATTEND Nurse Practitioner Family
DX: R05 Cough (principal); R06.89 Other abnormalities of breathing; J30.9 Allergic rhinitis, unspecified; R09.02 Hypoxemia; J98.4 Other disorders of lung; G47.10 Hypersomnia, unspecified; Z72.0 Tobacco use
CPT/HCPCS: 94060; 94726; 94729

== ENCOUNTER 2018-10-04 09:25 | Outpatient (RCR) | payer MEDICARE, MEDICAID, OTHER ==
[~2018-10-04 09:25] MED LIST changes: -RT-ALBUTEROL SULF 2.5 MG/3 ML PRE-MIX VIAL INH ONE; -RT-ALBUTEROL SULF 2.5 MG/3 ML PRE-MIX VIAL ONE
[2018-11-04 10:00] VITALS: BP 120/60
[2018-11-04 10:54] VITALS: BP 102/78
[2018-11-11 10:00] VITALS: BP 118/60
[2018-11-11 10:40] VITALS: BP 120/60
[2018-11-23 09:50] VITALS: BP 115/50
[2018-11-23 10:00] VITALS: BP 115/50
[2018-11-25 10:00] VITALS: BP 89/50
[2018-11-25 11:01] VITALS: BP 130/60
[2018-12-02 09:50] VITALS: BP 114/60
[2018-12-02 10:40] VITALS: BP 97/58
[2018-12-07 09:52] VITALS: BP 80/60
[2018-12-14 10:00] VITALS: BP 124/70
[2018-12-14 11:40] VITALS: BP 118/60
[2018-12-16 10:00] VITALS: BP 115/40
[2018-12-16 11:15] VITALS: BP 100/50
[2018-12-28 13:00] VITALS: BP 120/70
[2018-12-28 13:40] VITALS: BP 122/68
[2019-01-04 12:55] VITALS: BP 115/60
[2019-01-04 13:35] VITALS: BP 116/60
== END 2019-01-02 | disposition home or self-care (01) ==
LOC: PULM 09:25
PROVIDERS: ATTEND Nurse Practitioner Family
DX: R05 Cough (principal); J98.4 Other disorders of lung; R06.89 Other abnormalities of breathing; R09.02 Hypoxemia; J30.9 Allergic rhinitis, unspecified; G47.10 Hypersomnia, unspecified; Z72.0 Tobacco use
CPT/HCPCS: 99211

== ENCOUNTER 2019-01-13 14:45 | Outpatient (RCR) | payer MEDICARE, MEDICAID, OTHER ==
[2019-01-13 12:45] VITALS: BP 105/60
[2019-01-13 14:30] VITALS: BP 100/60
== END 2019-04-13 | disposition home or self-care (01) ==
LOC: PULM 14:45
PROVIDERS: ATTEND Nurse Practitioner Family
DX: J30.9 Allergic rhinitis, unspecified (principal); G47.10 Hypersomnia, unspecified; J98.4 Other disorders of lung; F17.200 Nicotine dependence, unspecified, uncomplicated

== ENCOUNTER → 2019-01-21 | Outpatient (CLI) | payer MEDICARE, MEDICAID ==
[~2019-01-21] MED LIST changes: +HOLD METFORMIN - RECEIVED CONTRAST 20 ML VIAL IV SCH; +IOHEXOL 350 MG/ML 100 ML (OMNIPAQUE 350) VIAL IV ONE; +NS 100 ML (IVPB) BAG IV ONE
[2019-01-21 12:46] LABS: CREATININE SERUM 1.3 MG/DL (0.60-1.30)
--- NOTE | 2019-01-21 17:09 | Diagnostic Imaging Report ---
PROCEDURE: CT chest with contrast only. TECHNIQUE: Multiple contiguous axial images were obtained through the chest after administration of intravenous contrast. Auto Exposure Controls were utilized during the CT exam to meet ALARA standards for radiation dose reduction. INDICATION: Cough, abnormal breathing. History of tobacco use. CORRELATION STUDY: CT chest 08/26/2018 FINDINGS: Heart size is enlarged to perhaps slightly more prominent from prior study. Significant calcification above the aortic valve. Scattered coronary artery calcifications. No pericardial effusion. The visualized portion of the thyroid gland appears small. Prominent mediastinal lymph nodes are again demonstrated. Largest lymph node in the precarinal region is prominent fatty denise, stable, 20 x 10 mm. Gastroesophageal junction unremarkable. Lung tellez demonstrate advanced emphysematous lung disease to be present. There are areas of scarring, particularly at the lung bases. No suggestion for consolidating infiltrate. Two masses in the lateral right lower lobe are again demonstrated. The larger rounded solid well-circumscribed masses in the subpleural region currently measure 12 x 12 mm and 13 x 11 mm, stable. A smaller, more faint nodule anterior right lower lobe 7 x 5 mm, previously 8 x 5, stable. Visualized portion of the upper abdomen demonstrates markedly atrophic left kidney. Multiple gallstones near the gallbladder neck. IMPRESSION: 1. Advanced emphysematous changes in the lung parenchyma. No infiltrate. 2. Right lower lobe pulmonary masses are overall stable from prior study. 3. Stable, mildly prominent mediastinal lymphadenopathy. 4. Marked atrophic changes of the left kidney. 5. Cholelithiasis. Dictated by: Dictated on workstation # [id number]
== END ==
LOC: RAD 12:18
PROVIDERS: ATTEND Nurse Practitioner Family
DX: J43.9 Emphysema, unspecified (principal); N26.1 Atrophy of kidney (terminal); K80.20 Calculus of gallbladder without cholecystitis without obstruction; J30.9 Allergic rhinitis, unspecified; G47.10 Hypersomnia, unspecified; J98.4 Other disorders of lung; R91.8 Other nonspecific abnormal finding of lung field; R59.0 Localized enlarged lymph nodes; F17.200 Nicotine dependence, unspecified, uncomplicated
CPT/HCPCS: 36415; 71260; 82565; 84520

== ENCOUNTER → 2019-07-11 | Outpatient (CLI) | payer MEDICARE, MEDICAID ==
[~2019-07-11] MED LIST changes: -HOLD METFORMIN - RECEIVED CONTRAST 20 ML VIAL IV SCH; -IOHEXOL 350 MG/ML 100 ML (OMNIPAQUE 350) VIAL IV ONE; +LISI1TAB26 PO; -METO-370 PO; +METO50TA7 PO; -NS 100 ML (IVPB) BAG IV ONE
[2019-07-11 09:53] LABS: CREATININE SERUM 1.38 MG/DL (0.60-1.30)
--- NOTE | 2019-07-11 10:44 | Diagnostic Imaging Report ---
PROCEDURE: CT chest without contrast. TECHNIQUE: Multiple contiguous axial images were obtained through the chest without the use of intravenous contrast. Auto Exposure Controls were utilized during the CT exam to meet ALARA standards for radiation dose reduction. INDICATION: Cough and hypoxemia. COMPARISON: Comparison is made to examination of 01/21/2019. FINDINGS: Similar to the previous study, there are several peripheral right pulmonary nodules with the largest circumscribed rounded nodule in the periphery of the right middle lobe again measuring 1.2 cm in maximum diameter. Additional subcentimeter nodules are seen along the right major fissure with areas of probable linear atelectasis and/or scarring in the lingula and left lower lobe. Subpleural densities are also seen in the right middle lobe with several air cysts seen in the apical regions and right lower lobe. Mildly prominent fat-containing mediastinal lymph nodes are similar in overall appearance compared to previous study. There is no significant pleural or pericardial fluid. Overall, there has been no adverse change. Left renal atrophy and cholelithiasis are again noted in the upper abdomen. IMPRESSION: Stable appearing pulmonary nodules with the largest in the lateral aspect of the right middle lobe demonstrating circumscribed margins. Given stability since previous examination, this is likely benign or possibly low-grade in nature. Additional six month follow-up exam is recommended for documentation of ongoing stability. Dictated by: Dictated on workstation # [id number]
== END ==
LOC: RAD 09:18
PROVIDERS: ATTEND Nurse Practitioner Family
DX: J30.9 Allergic rhinitis, unspecified (principal); J98.4 Other disorders of lung; R91.8 Other nonspecific abnormal finding of lung field; Z72.0 Tobacco use
CPT/HCPCS: 36415; 71250; 82565; 84520

== ENCOUNTER 2020-03-08 16:18 | Emergency (ER) | payer MEDICARE, MEDICAID ==
[~2020-03-08] VITALS: Ht 172.7 cm; Wt 86.4 kg
[~2020-03-08 16:18] MED LIST changes: +ASPI-1238 PO; -ASPI-983 PO
[2020-03-08 16:37] LABS: HEMOGLOBIN 15.8 G/DL (11.5-16.0); MEAN PLATELET VOLUME 11.1 FL (7.4-10.4); WHITE BLOOD COUNT 11.7 10^3/uL (4.3-11.0)
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
[2020-03-08] MEDS ORDERED: ONDA4TAB11 PO (17:17)
[2020-03-08 17:36] LABS: ALBUMIN 3.7 GM/DL (3.2-4.5); POTASSIUM 4.1 MMOL/L (3.6-5.0)
[2020-03-08 17:38] LABS: CALCIUM 8.4 MG/DL (8.5-10.1)
[2020-03-08 17:39] LABS: TOTAL PROTEIN 6.8 GM/DL (6.4-8.2)
[2020-03-08 17:40] VITALS: BP 174/113
[2020-03-08 17:41] LABS: BILIRUBIN,TOTAL 0.7 MG/DL (0.1-1.0)
[2020-03-08 17:43] LABS: CREATININE SERUM 1.15 MG/DL (0.60-1.30)
[2020-03-08 17:44] LABS: BILIRUBIN,DIRECT 0.3 MG/DL (0.0-0.3); BILIRUBIN,INDIRECT 0.4 MG/DL
== END 2020-03-08 17:40 | disposition home or self-care (01) ==
LOC: EDUNIT# 16:20 → ER 16:21
DX: S00.83XA Contusion of other part of head, initial encounter (principal); D35.2 Benign neoplasm of pituitary gland; R91.8 Other nonspecific abnormal finding of lung field; I48.91 Unspecified atrial fibrillation; I10 Essential (primary) hypertension; J44.9 Chronic obstructive pulmonary disease, unspecified; R40.2142 Coma scale, eyes open, spontaneous, at arrival to emergency department; R40.2252 Coma scale, best verbal response, oriented, at arrival to emergency department; R40.2362 Coma scale, best motor response, obeys commands, at arrival to emergency department; F17.210 Nicotine dependence, cigarettes, uncomplicated; Z79.82 Long term (current) use of aspirin; Z79.02 Long term (current) use of antithrombotics/antiplatelets; Z82.49 Family history of ischemic heart disease and other diseases of the circulatory system; V49.40XA Driver injured in collision with unspecified motor vehicles in traffic accident, initial encounter; Y92.411 Interstate highway as the place of occurrence of the external cause
CPT/HCPCS: 70450; 71045; 72125; 80048; 80076; 85027; 93041; 99284; G0480; 36415; 80320

== ENCOUNTER 2021-03-26 11:00 | Day surgery (SDC) | payer MEDICARE, MEDICAID ==
[~2021-03-26] VITALS: Ht 172.7 cm; Wt 92.1 kg
[2021-03-26] VITALS (10 sets, daily range): BP systolic 127–168; BP diastolic 70–94
[2021-03-26 09:08] LABS: HEMATOCRIT 41 % (35-52); HEMOGLOBIN 13.7 g/dL (11.5-16.0); MEAN CORPUSCULAR HEMOGLOBIN 34 pg (25-34); MEAN CORPUSCULAR HGB CONC 34 g/dL (32-36); MEAN CORPUSCULAR VOLUME 101 fL (80-99); MEAN PLATELET VOLUME 9.8 fL (9.0-12.2); PLATELET COUNT 183 10^3/uL (130-400); WHITE BLOOD COUNT 9.9 10^3/uL (4.3-11.0)
[2021-03-26 09:28] LABS: INR 1.1 (0.8-1.4); PROTHROMBIN TIME PATIENT 14.6 SEC (12.2-14.7)
[2021-03-26 09:35] LABS: ALBUMIN 3.7 GM/DL (3.2-4.5); BILIRUBIN,TOTAL 1.2 MG/DL (0.1-1.0); CALCIUM 9.2 MG/DL (8.5-10.1); CREATININE SERUM 1.08 MG/DL (0.60-1.30); POTASSIUM 4.2 MMOL/L (3.6-5.0); TOTAL PROTEIN 7.1 GM/DL (6.4-8.2)
[~2021-03-26 11:00] MED LIST changes: +ACET325T38 PO; +AMLO-250 PO; -AMLO5TAB9 PO; +APIX5TAB PO; +ATOR20TA66 PO; +BETA1TAB15 PO; +CITA10TA12 PO; +CITA20TA9 PO; +DIPH25CA79 PO; +HEParin 1000 UNIT/ML (10ML VIAL) FOR BOLUS ONE; +LIDOCAINE 1% INJ 20 ML 20 ML VIAL ONE; +LORA10TA7 PO; +MELA5TAB14 PO; +MIDAZOLAM 5 MG/5 ML (VERSED) VIAL ONE; +NS IV 1000 ML 1,000 ML IV SCH; +NS IV 1000 ML 3,000 ML ONE; +ONDA4TAB11 PO; +RT-ALBUINH IH; +fentaNYL INJ 100 MCG/2 ML AMP ONE
--- NOTE | 2021-03-26 13:40 | Cardiac Procedure Note-CS/ASA ---
Pre-Procedure Note Pre-Op Procedure Note H&P Reviewed The H&P was reviewed, patient examined and no changes noted. Date H&P Reviewed: Mar 26, 2021 Time H&P Reviewed: 10:30 Conscious Sedation Pre-Proced Time 10:30 ASA Score 3 For ASA 3 and 4: Consider anesthesia and medical clearance. Also, for patients with a history of failed moderate sedation consider anesthesia. Airway Lungs Heart ASA score ASA 1: a normal healthy patient ASA 2: a patient with a mild systemic disease (mid diabetes, controlled hypertension, obesity ASA 3: a patient with a severe systemic disease that limits activity (angina, COPD, prior Myocardial infarction) ASA 4: a patient with an incapacitating disease that is a constant threat to life (CHF, renal failure) ASA 5: a moribund patient not expected to survive 24 hrs. (ruptured aneurysm) ASA 6: a declared brain- patient whose organs are being harvested. For emergent operations, add the letter E after the classification Mallampati Classification Grade 2 Sedation Plan Analgesia, Amnesia, Plan communicated to team members, Discussed options with patient/fam, Discussed risks with patient/fam The patient is an appropriate candidate to undergo the planned procedure, sedation, and anesthesia. The patient immediately re-assessed prior to indication. SHAQ HUSSEIN MD FACP FAC CCDS Mar 26, 2021 13:40
--- NOTE | 2021-03-26 13:42 | Discharge Inst-Cardiology ---
Discharge Inst-Cardiac Discharge Medications Continued Medications: Acetaminophen (Tylenol) 325 Mg Tablet 650 MG PO Q6H PRN for PAIN-MILD (1-4), TAB Albuterol Sulfate (Proair Hfa) 1 Puff Puff 2 PUFF IH Q4H PRN for SHORTNESS OF BREATH, EA Apixaban (Eliquis) 5 Mg Tablet 5 MG PO BID, TAB Aspirin (Aspirin EC) 81 Mg Tablet.dr 81 MG PO DAILY, TAB Atorvastatin Calcium (Atorvastatin Calcium) 20 Mg Tablet 20 MG PO HS, TAB Citalopram Hydrobromide (Celexa) 10 Mg Tablet 10 MG PO HS, TAB Diphenhydramine HCl (Benadryl) 25 Mg Capsule 25 MG PO DAILY PRN for ALLERGIES, CAP Hydroxyzine HCl (Hydroxyzine HCl) 25 Mg Tablet 25 MG PO TID PRN for ANXIETY, TAB Loratadine (Loratadine) 10 Mg Tablet 10 MG PO DAILY, TAB Melatonin (Melatonin) 5 Mg Tablet 5 MG PO HS, TAB Metoprolol Succinate (Metoprolol Succinate) 50 Mg Tab.er.24h 50 MG PO DAILY, TAB Vit A/Vit C/Vit E/Zinc/Copper (Preservision Areds Tablet) 1 Each Tablet 1 EACH PO DAILY, TAB SHAQ HUSSEIN MD FACP FAC CCDS Mar 26, 2021 13:42
--- NOTE | 2021-03-26 13:43 | Discharge Inst-Post CATH ---
Discharge Inst-CATH/EP Post Cardiac Cath/EP D/C Inst F/u with Dr Burns next week ACTIVITY * Go Home directly and rest. * Limit activity of the leg (or wrist if it was used) for 7 days including aerobics, swimming, jogging, bicycling, etc. * Restrict stair-climbing for 7 days if possible, if not, climb up with your non-cath leg, then bring together on the same step. * Avoid lifting, pushing, pulling or excessive movement of the affected extremity for 7 days. * Customary sexual activity may be resumed after 2 days-use caution not to use a position that strains or causes pain to the affected extremity. * No driving for 24 hours. * NO SMOKING. * Avoid straining for bowel movements for 7 days. * Gentle walking on level ground is allowed. * Returning to work will depend on the type of procedure and the results. Your doctor will discuss this with you. CALL YOUR DOCTOR FOR ANY OF THE FOLLOWING: *If bleeding from the puncture site occurs- Apply gentle pressure to site with clean cloth and call your doctor or EMS. * If a knot or lump forms under the skin, increases in size, or causes pain. * If bruising appears to be worsening or moving further down your leg instead of disappearing. * Temperature above 101 F. CARE OF YOUR GROIN INCISION; * Bruising or purple discoloration of the skin near the puncture site is common. * You may shower only, no bathtub bathing for 5 days. Be careful to avoid slipping as your leg may feel stiff. * If a closure device was used on your femoral artery, please see the attached guide regarding care of the device and your leg. * Leave dressing on FOR 24 hours. CARE OF YOUR WRIST INCISION; * Bruising or purple discoloration of the skin near the puncture site is common. * You may shower. * DO NOT submerge wrist. * Leave dressing on FOR 24 hours. SHAQ BURNS MD [facility] CCDS Mar 26, 2021 13:43
[2021-03-26] MEDS ORDERED: NS IV 1000 ML 1,000 ML IV SCH (13:45)
[2021-03-26] MEDS ORDERED: PATIENT MAY USE OWN MEDS, ALL PO SCH (13:45)
--- NOTE | 2021-03-26 18:03 | OPERATIVE REPORT ---
DATE OF SERVICE: 03/26/2021 The patient is a 80-year-old lady who has severe bilateral leg claudication and noninvasive imaging has indicated severe peripheral arterial disease involving both lower limbs. Peripheral angiography was recommended and informed consent was obtained. DESCRIPTION OF PROCEDURE: He was brought to the cardiac catheterization laboratory in a fasting state. Both groins were prepared and draped in the usual sterile fashion. Lidocaine 1% was used for local anesthesia. We attempted both groins to get access to the femoral arteries, but despite multiple attempts, we were not able to do so. It appears that she has severe disease of the proximal arterial system in both legs. Job ID: [id number] DocumentID: [id number] Dictated Date: 03/26/2021 11:33:22 Test Facility Engineer Date: 03/26/2021 18:02:48 Dictated By: SHAQ HUSSEIN MD, MA, FACP, FACC,
== END 2021-03-26 14:40 | disposition home or self-care (01) ==
LOC: CATH 11:00
PROVIDERS: ATTEND Internal Medicine Cardiovascular Disease
DX: I70.203 Unspecified atherosclerosis of native arteries of extremities, bilateral legs (principal); G47.33 Obstructive sleep apnea (adult) (pediatric); R06.09 Other forms of dyspnea; I65.23 Occlusion and stenosis of bilateral carotid arteries; I10 Essential (primary) hypertension; E78.2 Mixed hyperlipidemia; I48.19 Other persistent atrial fibrillation; J44.9 Chronic obstructive pulmonary disease, unspecified; R91.8 Other nonspecific abnormal finding of lung field; F17.210 Nicotine dependence, cigarettes, uncomplicated; Z86.73 Personal history of transient ischemic attack (TIA), and cerebral infarction without residual deficits; Z79.01 Long term (current) use of anticoagulants; Z79.899 Other long term (current) drug therapy; Z82.49 Family history of ischemic heart disease and other diseases of the circulatory system
CPT/HCPCS: 36415; 75716; 80053; 80061; 85027; 85610; 85730; 87081

== ENCOUNTER → 2021-03-29 | Outpatient (CLI) | payer MEDICARE, MEDICAID ==
[~2021-03-29] MED LIST changes: +CATHETER FLUSH 10 ML SYR IV PRN; -HEParin 1000 UNIT/ML (10ML VIAL) FOR BOLUS ONE; +HOLD METFORMIN - RECEIVED CONTRAST 20 ML VIAL IV SCH; +IOHEXOL 350 MG/ML 100 ML (OMNIPAQUE 350) VIAL IV ONE; +IOHEXOL 350 MG/ML 150 ML (OMNIPAQUE 350) VIAL IV ONE; -LIDOCAINE 1% INJ 20 ML 20 ML VIAL ONE; -MIDAZOLAM 5 MG/5 ML (VERSED) VIAL ONE; +NS 100 ML (IVPB) BAG IV ONE; -NS IV 1000 ML 1,000 ML IV SCH; -NS IV 1000 ML 3,000 ML ONE; -fentaNYL INJ 100 MCG/2 ML AMP ONE
--- NOTE | 2021-03-29 13:34 | Diagnostic Imaging Report ---
EXAMINATION: CT angiography aorta and lower extremity with runoffs. TECHNIQUE: Multiple contiguous axial images were obtained through the abdomen , pelvis and lower extremities after administration of intravenous contrast. 3D MIP reconstructed CTA acquisition were then performed. All CT scans use one or more of the following dose optimizing techniques: automated exposure control, MA and/or KvP adjustment based on a patient size and exam type, or iterative reconstruction. HISTORY: Peripheral vascular disease COMPARISON: None available. FINDINGS: Vascular findings: Abdominal aorta: No stenosis. There is a 3.3 x 2.9 cm abdominal aortic aneurysm. Celiac artery: There is moderate stenosis of the celiac origin. Superior mesenteric artery: No stenosis. Right renal artery: Mild narrowing at the origin. Left renal artery: Severe narrowing at the origin. Inferior mesenterica artery: Patent. Right common iliac artery: Moderate narrowing at the origin. Right external iliac artery: Severe narrowing at the origin and in the midportion. Right common femoral artery: Mild stenosis. Right superficial femoral artery: Occluded from the origin to the origin of the popliteal artery. Right deep femoral artery: Patent, supplying collateral flow to the popliteal artery. Right popliteal artery: Moderate stenosis Right posterior tibial artery: No stenosis. Right anterior tibial artery: No stenosis. Right peroneal artery: No stenosis. Right ankle and foot vessels: There is three-vessel runoff. Left common iliac artery: Moderate stenosis Left external iliac artery: Focally occluded proximally with reconstitution, severe stenosis in the distal portion Left common femoral artery: Mild stenosis Left superficial femoral artery: Occluded proximally with reconstitution at the popliteal artery Left deep femoral artery: Patent, supplying collaterals to the popliteal artery Left popliteal artery: Severe stenosis Left posterior tibial artery: Occluded in the midportion Left anterior tibial artery: No stenosis. Left peroneal artery: No stenosis. Left ankle and foot vessels: There is two-vessel runoff Other findings: Limited views of the lower thorax show mild atelectasis in left lower lobe The liver is normal without focal lesion. There is no biliary ductal dilation. Gallbladder contains stones. No cholecystitis Pancreas is normal. Spleen is normal. Adrenal glands are normal. Left kidney is markedly atrophic. No suspicious renal lesions are seen. There is no hydronephrosis. Urinary bladder is normal. Visualized bowel is normal in caliber without obstruction or inflammation. Small amount of stranding that is high attenuating is present in the right lower quadrant extraperitoneal tissues which may be related to prior arterial puncture. No large hematoma or drainable fluid collection is seen No free fluid or air. No abdominal or pelvic lymphadenopathy. There are no suspicious osseus lesions. IMPRESSION: 1. Severe inflow and outflow disease in both lower extremities with occlusion of all superficial femoral arteries and severe stenosis of the right common iliac artery and focal occlusion of the left common iliac artery Dictated by: Dictated on workstation # [id number]
== END ==
LOC: CARD 12:15
PROVIDERS: ATTEND Internal Medicine Cardiovascular Disease
DX: I08.0 Rheumatic disorders of both mitral and aortic valves (principal); I73.9 Peripheral vascular disease, unspecified
CPT/HCPCS: 75635; 93306

== ENCOUNTER → 2021-05-10 | Outpatient (CLI) | payer MEDICARE, MEDICAID ==
[~2021-05-10] MED LIST changes: -CATHETER FLUSH 10 ML SYR IV PRN; -HOLD METFORMIN - RECEIVED CONTRAST 20 ML VIAL IV SCH; -IOHEXOL 350 MG/ML 100 ML (OMNIPAQUE 350) VIAL IV ONE; -IOHEXOL 350 MG/ML 150 ML (OMNIPAQUE 350) VIAL IV ONE; -NS 100 ML (IVPB) BAG IV ONE
[2021-05-10 12:30] LABS: BASOPHILS % (AUTO) 0 % (0-10); EOSINOPHILS # (AUTO) 0.1 10^3/uL (0.0-0.3); EOSINOPHILS % (AUTO) 1 % (0-10); HEMATOCRIT 38 % (35-52); LYMPHOCYTES % (AUTO) 21 % (12-44); MEAN CORPUSCULAR HEMOGLOBIN 35 pg (25-34); MEAN CORPUSCULAR HGB CONC 34 g/dL (32-36); MEAN CORPUSCULAR VOLUME 103 fL (80-99); MEAN PLATELET VOLUME 9.2 fL (9.0-12.2); MONOCYTES # (AUTO) 0.8 10^3/uL (0.0-1.0); MONOCYTES % (AUTO) 8 % (0-12); NEUTROPHILS # (AUTO) 6.7 10^3/uL (1.8-7.8); NEUTROPHILS % (AUTO) 69 % (42-75); PLATELET COUNT 135 10^3/uL (130-400); WHITE BLOOD COUNT 9.7 10^3/uL (4.3-11.0)
== END ==
LOC: LAB 12:00
PROVIDERS: ATTEND Thoracic Surgery (Cardiothoracic Vascular Surgery)
DX: Z01.812 Encounter for preprocedural laboratory examination (principal); Z01.810 Encounter for preprocedural cardiovascular examination; I70.213 Atherosclerosis of native arteries of extremities with intermittent claudication, bilateral legs
CPT/HCPCS: 36415; 85025